=== PATIENT | male | born 1965 | race Two or more races ===

== ENCOUNTER → 2016-08-11 | Outpatient (CLI) | payer OTHER ==
[2016-03-09 15:00] VITALS: BP 126/65
[~2016-08-11] MED LIST: CHOL500016 PO; Chlordiazepoxide Hcl PO; ESOM40CA PO; GABA-586 PO; INSU100I17 SQ; INSU100V13 SQ; LACT10SO PO; Lisinopril PO; MAGN400T3 PO; METH-38 PO; MOME13HF2 IH; RIFA550T PO; SLOW RELEASE I142 MG PO; SPIR50TA2 PO; SUCR1TAB PO; TORS20TA2 PO; TRAM50TA PO; TRAZ100T12 PO
--- NOTE | 2016-08-11 15:36 | RAD ---
Indication microscopic hematuria. Grayscale imaging targeted to the kidneys was performed. Note is made of a complete abdominal ultrasound examination 11/15/2014. The right kidney measures 11.7 x 6.3 x 5.9 cm. No hydronephrosis or mass is seen. The left kidney measures 12.3 x 5.8 x 6 cm. No hydronephrosis or mass is seen. Incidental note was made during the examination of splenomegaly. The urinary bladder was largely collapsed but grossly normal. IMPRESSION: Normal morphologic appearance of the kidneys. Splenomegaly
== END | disposition home or self-care (01) ==
LOC: US 14:56
PROVIDERS: ATTEND Family Medicine
DX: R16.1 Splenomegaly, not elsewhere classified (principal); R31.29 Other microscopic hematuria
CPT/HCPCS: 76770

== ENCOUNTER 2017-04-29 09:05 | Emergency (ER) | payer MEDICARE, SELFPAY, OTHER ==
[2017-04-29] MEDS: SMZ/TMP 800/160MG TABLET. PO ×2 (10:03)
[2017-04-29] MEDS: DIPHTH,PERTUSS(ACELL),TET TOX 0.5 ML DISP.SYRIN. VAX IM ×2 (10:04)
== END 2017-04-29 11:33 | disposition home or self-care (01) ==
LOC: ER 09:05
DX: L03.116 Cellulitis of left lower limb (principal); K21.9 Gastro-esophageal reflux disease without esophagitis; E11.9 Type 2 diabetes mellitus without complications; Z86.73 Personal history of transient ischemic attack (TIA), and cerebral infarction without residual deficits; Z79.4 Long term (current) use of insulin
CPT/HCPCS: 90471; 90715; 93971; 99284-25

== ENCOUNTER 2017-05-04 12:09 | Inpatient (IN) | payer MEDICARE ==
[2017-05-04 13:17] LABS: ADD MAN DIFF? NO
[2017-05-04] MEDS: IV NORMAL SALINE 1000ML BAG 1,000 ML IV (13:19)
[2017-05-04] MEDS: MORPHINE SULFATE 2 MG/ML DISP.SYRIN. IV/SQ ×3 (13:20→15:55)
[2017-05-04 13:25] LABS: BASO % 0 % (0-3); EOS # 0.1 x10^3/uL (0.0-0.7); EOS % 1 % (0-3); HEMATOCRIT 23.2 % (39.0-53.0); LYMPH # 0.4 x10^3/uL (1.0-4.8); LYMPH % 7 % (24-48); MEAN CORPUSCULAR HEMOGLOBIN 29 pg (25-35); MEAN CORPUSCULAR HGB CONC 34 g/dL (31-37); MEAN CORPUSCULAR VOLUME 84 fL (79-100); MONO # 0.8 x10^3/uL (0.0-1.1); MONO % 13 % (0-9); NEUT % 79 % (31-73); PLATELET COUNT 36 x10^3/uL (140-400); RED BLOOD COUNT 2.76 x10^6/uL (4.30-5.70); RED CELL DISTRIBUTION WIDTH 19.2 % (11.5-14.5); WHITE BLOOD COUNT 6.3 x10^3/uL (4.0-11.0)
[2017-05-04 13:42] LABS: ANION GAP 8 (6-14); BLOOD UREA NITROGEN 12 mg/dL (8-26); CALCIUM 7.5 mg/dL (8.5-10.1); CARBON DIOXIDE 21 mmol/L (21-32); CHLORIDE 100 mmol/L (98-107); CREATININE 1.2 mg/dL (0.7-1.3); GFR 63.8; GLUCOSE 218 mg/dL (70-99); POTASSIUM 4.8 mmol/L (3.5-5.1); SODIUM 129 mmol/L (136-145)
[2017-05-04 13:49] LABS: ALBUMIN 1.8 g/dL (3.4-5.0); ALK PHOS 95 U/L (46-116); ALT (SGPT) 20 U/L (16-63); AST (SGOT) 23 U/L (15-37); C-REACTIVE PROTEIN 89.1 mg/L (0-3.3); DIRECT BILIRUBIN 1.2 mg/dL (0.0-0.2); TOTAL BILIRUBIN 1.7 mg/dL (0.2-1.0); TOTAL PROTEIN 6.4 g/dL (6.4-8.2)
[2017-05-04 13:52] LABS: LACTIC ACID 1.7 mmol/L (0.4-2.0)
[2017-05-04] MEDS: VANCOMYCIN 2 GM in IV DEXTROSE 5 %-0.2 % NACL 500 ML IV (13:54)
[2017-05-04] MEDS ORDERED: PIP/TAZO PER PHARMACY MC ×2 (14:30→17:30)
[2017-05-04] MEDS ORDERED: ONDANSETRON PF 4 MG/2 ML VIAL. IV (14:30)
[2017-05-04 14:37] LABS: SEDIMENTATION RATE 56 (0-15)
[2017-05-04] MEDS: PIPERACILLIN/TAZOBACTAM 3.375 GM in IV NORMAL SALINE 50ML 50 ML IV ×2 (14:52→23:58)
[2017-05-04 17:07] LABS: POC GLUCOSE 176 mg/dL (70-99)
[2017-05-04] MEDS: VANCOMYCIN PER PHARMACY MC (17:42)
[2017-05-04] MEDS: HYDROcodone/APAP 5/325MG 1 TAB TABLET PO ×2 (17:57→23:58)
[2017-05-04] MEDS: MORPHINE SULFATE 4 MG/ML DISP.SYRIN. IV ×2 (19:39→22:29)
[2017-05-04] MEDS: SPIRONOLACTONE 25 MG TABLET PO (20:52)
[2017-05-04] MEDS: CLOTRIMAZOLE 1% TOPICAL CREAM 15GM TUBE. TP (20:52)
[2017-05-04] MEDS: INSULIN DETEMIR 300 UNITS/3 ML INSULN.PEN. SQ (21:00)
[2017-05-04 21:07] LABS: POC GLUCOSE 169 mg/dL (70-99)
[2017-05-05] MEDS: VANCOMYCIN 1.25 GM in IV DEXTROSE 5 %-0.2 % NACL 250 ML IV ×2 (02:16→13:24)
[2017-05-05] MEDS: MORPHINE SULFATE 4 MG/ML DISP.SYRIN. IV ×7 (03:10→21:52)
[2017-05-05 05:07] LABS: ADD MAN DIFF? NO
[2017-05-05] MEDS: PIPERACILLIN/TAZOBACTAM 3.375 GM in IV NORMAL SALINE 50ML 50 ML IV ×4 (05:08→23:02)
[2017-05-05 05:10] LABS: BASO % 0 % (0-3); EOS # 0.1 x10^3/uL (0.0-0.7); EOS % 2 % (0-3); HEMATOCRIT 23.6 % (39.0-53.0); LYMPH # 0.6 x10^3/uL (1.0-4.8); LYMPH % 9 % (24-48); MEAN CORPUSCULAR HEMOGLOBIN 29 pg (25-35); MEAN CORPUSCULAR HGB CONC 34 g/dL (31-37); MEAN CORPUSCULAR VOLUME 84 fL (79-100); MONO # 0.9 x10^3/uL (0.0-1.1); MONO % 14 % (0-9); NEUT % 75 % (31-73); PLATELET COUNT 36 x10^3/uL (140-400); RED CELL DISTRIBUTION WIDTH 19.2 % (11.5-14.5); WHITE BLOOD COUNT 6.7 x10^3/uL (4.0-11.0)
[2017-05-05 05:49] LABS: ANION GAP 5 (6-14); BLOOD UREA NITROGEN 8 mg/dL (8-26); CALCIUM 7.3 mg/dL (8.5-10.1); CARBON DIOXIDE 24 mmol/L (21-32); CHLORIDE 102 mmol/L (98-107); CREATININE 0.9 mg/dL (0.7-1.3); GLUCOSE 183 mg/dL (70-99); POTASSIUM 4.5 mmol/L (3.5-5.1); SODIUM 131 mmol/L (136-145)
[2017-05-05 07:33] LABS: POC GLUCOSE 157 mg/dL (70-99)
[2017-05-05] MEDS: PANTOPRAZOLE 40 MG TABLET.DR. PO (07:44)
[2017-05-05] MEDS: HYDROcodone/APAP 5/325MG 1 TAB TABLET PO ×3 (07:45→19:45)
[2017-05-05] MEDS: FLUCONAZOLE 100 MG TABLET. PO (09:05)
[2017-05-05] MEDS: CLOTRIMAZOLE 1% TOPICAL CREAM 15GM TUBE. TP ×2 (09:06→21:52)
[2017-05-05] MEDS: FERROUS SULFATE 325 MG TABLET. PO (09:06)
[2017-05-05] MEDS: SPIRONOLACTONE 25 MG TABLET PO ×3 (09:06→21:52)
[2017-05-05 11:01] LABS: POC GLUCOSE 161 mg/dL (70-99)
[2017-05-05] MEDS: VANCOMYCIN PER PHARMACY MC (11:44)
[2017-05-05] MEDS: LACTOBACILLUS RHAMNOSUS GG 1 CAPSULE. PO ×2 (13:22→21:52)
[2017-05-05] MEDS ORDERED: DEXTROSE 50% 25 GM / 50ML DISP.SYRIN. IV (15:45)
[2017-05-05] MEDS ORDERED: MORPHINE SULFATE 2 MG/ML DISP.SYRIN. IV (15:45)
[2017-05-05 17:03] LABS: POC GLUCOSE 232 mg/dL (70-99)
[2017-05-05] MEDS: INSULIN ASPART 300 UNITS/3 ML INSULN.PEN SQ (17:28)
[2017-05-05] MEDS ORDERED: INSULIN ASPART 300 UNITS/3 ML INSULN.PEN SQ (17:30)
[2017-05-05 20:52] LABS: POC GLUCOSE 168 mg/dL (70-99)
[2017-05-05] MEDS: INSULIN DETEMIR 300 UNITS/3 ML INSULN.PEN. SQ (21:55)
[2017-05-06] MEDS: MORPHINE SULFATE 4 MG/ML DISP.SYRIN. IV ×9 (01:02→23:56)
[2017-05-06 01:47] LABS: VANC TR 9.9 mcg/mL (10.0-20.0)
[2017-05-06] MEDS: HYDROcodone/APAP 5/325MG 1 TAB TABLET PO ×4 (02:13→20:41)
[2017-05-06] MEDS: VANCOMYCIN 1.25 GM in IV DEXTROSE 5 %-0.2 % NACL 250 ML IV (02:54)
[2017-05-06 04:45] LABS: ADD MAN DIFF? NO
[2017-05-06 04:54] LABS: BASO % 1 % (0-3); EOS # 0.2 x10^3/uL (0.0-0.7); EOS % 2 % (0-3); HEMATOCRIT 23.4 % (39.0-53.0); LYMPH # 0.8 x10^3/uL (1.0-4.8); LYMPH % 11 % (24-48); MEAN CORPUSCULAR HEMOGLOBIN 28 pg (25-35); MEAN CORPUSCULAR HGB CONC 34 g/dL (31-37); MEAN CORPUSCULAR VOLUME 83 fL (79-100); MONO # 1.3 x10^3/uL (0.0-1.1); MONO % 18 % (0-9); NEUT # 4.9 x10^3uL (1.8-7.7); NEUT % 68 % (31-73); PLATELET COUNT 36 x10^3/uL (140-400); RED BLOOD COUNT 2.81 x10^6/uL (4.30-5.70); RED CELL DISTRIBUTION WIDTH 18.4 % (11.5-14.5); WHITE BLOOD COUNT 7.2 x10^3/uL (4.0-11.0)
[2017-05-06] MEDS: VANCOMYCIN PER PHARMACY MC (04:57)
[2017-05-06] MEDS: PIPERACILLIN/TAZOBACTAM 3.375 GM in IV NORMAL SALINE 50ML 50 ML IV ×4 (04:59→23:54)
[2017-05-06 05:27] LABS: BLOOD UREA NITROGEN 6 mg/dL (8-26); CALCIUM 7.8 mg/dL (8.5-10.1); CARBON DIOXIDE 25 mmol/L (21-32); CHLORIDE 98 mmol/L (98-107); GFR 78.8; GLUCOSE 171 mg/dL (70-99); POTASSIUM 4.4 mmol/L (3.5-5.1); SODIUM 129 mmol/L (136-145)
[2017-05-06 05:28] LABS: ANION GAP 6 (6-14)
[2017-05-06] MEDS: PANTOPRAZOLE 40 MG TABLET.DR. PO (07:12)
[2017-05-06 07:53] LABS: POC GLUCOSE 143 mg/dL (70-99)
[2017-05-06] MEDS: INSULIN ASPART 300 UNITS/3 ML INSULN.PEN SQ ×3 (08:00→17:34)
[2017-05-06] MEDS: SPIRONOLACTONE 25 MG TABLET PO ×3 (08:49→20:41)
[2017-05-06] MEDS: LACTOBACILLUS RHAMNOSUS GG 1 CAPSULE. PO ×2 (08:49→20:41)
[2017-05-06] MEDS: CLOTRIMAZOLE 1% TOPICAL CREAM 15GM TUBE. TP ×2 (08:49→20:43)
[2017-05-06] MEDS: FLUCONAZOLE 100 MG TABLET. PO (08:49)
[2017-05-06] MEDS: FERROUS SULFATE 325 MG TABLET. PO (08:49)
[2017-05-06] MEDS ORDERED: CONTRAST GIVEN MC (10:00)
[2017-05-06] MEDS: IOHEXOL 300 MG/ML 100ML VIAL. IV (10:19)
[2017-05-06 11:31] LABS: POC GLUCOSE 171 mg/dL (70-99)
[2017-05-06] MEDS: VANCOMYCIN 1.5 GM in IV DEXTROSE 5 %-0.2 % NACL 500 ML IV (15:14)
[2017-05-06 16:36] LABS: POC GLUCOSE 261 mg/dL (70-99)
[2017-05-06 20:47] LABS: POC GLUCOSE 183 mg/dL (70-99)
[2017-05-06] MEDS: INSULIN DETEMIR 300 UNITS/3 ML INSULN.PEN. SQ (20:47)
[2017-05-07] MEDS: MORPHINE SULFATE 4 MG/ML DISP.SYRIN. IV ×8 (02:51→23:37)
[2017-05-07] MEDS: HYDROcodone/APAP 5/325MG 1 TAB TABLET PO ×4 (02:51→21:01)
[2017-05-07] MEDS: VANCOMYCIN 1.5 GM in IV DEXTROSE 5 %-0.2 % NACL 500 ML IV ×2 (03:01→14:39)
[2017-05-07] MEDS: PIPERACILLIN/TAZOBACTAM 3.375 GM in IV NORMAL SALINE 50ML 50 ML IV ×4 (06:06→23:37)
[2017-05-07 07:46] LABS: POC GLUCOSE 194 mg/dL (70-99)
[2017-05-07] MEDS: CLOTRIMAZOLE 1% TOPICAL CREAM 15GM TUBE. TP ×2 (09:00→21:00)
[2017-05-07] MEDS: PANTOPRAZOLE 40 MG TABLET.DR. PO (09:16)
[2017-05-07] MEDS: FERROUS SULFATE 325 MG TABLET. PO (09:16)
[2017-05-07] MEDS: FLUCONAZOLE 100 MG TABLET. PO (09:16)
[2017-05-07] MEDS: SPIRONOLACTONE 25 MG TABLET PO ×3 (09:16→21:01)
[2017-05-07] MEDS: LACTOBACILLUS RHAMNOSUS GG 1 CAPSULE. PO ×2 (09:16→21:01)
[2017-05-07] MEDS: INSULIN ASPART 300 UNITS/3 ML INSULN.PEN SQ ×3 (09:22→17:37)
[2017-05-07 11:23] LABS: POC GLUCOSE 243 mg/dL (70-99)
[2017-05-07] MEDS: VANCOMYCIN PER PHARMACY MC (13:55)
[2017-05-07 16:26] LABS: POC GLUCOSE 264 mg/dL (70-99)
[2017-05-07 21:02] LABS: POC GLUCOSE 197 mg/dL (70-99)
[2017-05-07] MEDS: INSULIN DETEMIR 300 UNITS/3 ML INSULN.PEN. SQ (21:04)
[2017-05-08] MEDS: MORPHINE SULFATE 4 MG/ML DISP.SYRIN. IV ×5 (02:55→23:22)
[2017-05-08] MEDS: HYDROcodone/APAP 5/325MG 1 TAB TABLET PO ×4 (02:55→21:14)
[2017-05-08] MEDS: PIPERACILLIN/TAZOBACTAM 3.375 GM in IV NORMAL SALINE 50ML 50 ML IV ×4 (05:03→23:13)
[2017-05-08 06:22] LABS: ADD MAN DIFF? NO
[2017-05-08 06:26] LABS: BASO % 1 % (0-3); EOS # 0.2 x10^3/uL (0.0-0.7); EOS % 3 % (0-3); HEMATOCRIT 24.7 % (39.0-53.0); HEMOGLOBIN 8.4 g/dL (13.0-17.5); LYMPH # 0.7 x10^3/uL (1.0-4.8); LYMPH % 12 % (24-48); MEAN CORPUSCULAR HEMOGLOBIN 28 pg (25-35); MEAN CORPUSCULAR HGB CONC 34 g/dL (31-37); MEAN CORPUSCULAR VOLUME 83 fL (79-100); MONO # 0.9 x10^3/uL (0.0-1.1); MONO % 16 % (0-9); NEUT # 3.9 x10^3uL (1.8-7.7); NEUT % 68 % (31-73); PLATELET COUNT 52 x10^3/uL (140-400); RED BLOOD COUNT 2.97 x10^6/uL (4.30-5.70); RED CELL DISTRIBUTION WIDTH 18.6 % (11.5-14.5); WHITE BLOOD COUNT 5.7 x10^3/uL (4.0-11.0)
[2017-05-08 06:54] LABS: ANION GAP 3 (6-14); BLOOD UREA NITROGEN 6 mg/dL (8-26); CALCIUM 8.3 mg/dL (8.5-10.1); CARBON DIOXIDE 29 mmol/L (21-32); CHLORIDE 98 mmol/L (98-107); GFR 78.8; GLUCOSE 155 mg/dL (70-99); POTASSIUM 4.5 mmol/L (3.5-5.1); SODIUM 130 mmol/L (136-145)
[2017-05-08 07:40] LABS: POC GLUCOSE 188 mg/dL (70-99)
[2017-05-08] MEDS: LACTOBACILLUS RHAMNOSUS GG 1 CAPSULE. PO ×2 (08:11→21:14)
[2017-05-08] MEDS: FLUCONAZOLE 100 MG TABLET. PO (08:11)
[2017-05-08] MEDS: SPIRONOLACTONE 25 MG TABLET PO ×3 (08:11→21:14)
[2017-05-08] MEDS: PANTOPRAZOLE 40 MG TABLET.DR. PO (08:11)
[2017-05-08] MEDS: FERROUS SULFATE 325 MG TABLET. PO (08:11)
[2017-05-08] MEDS: CLOTRIMAZOLE 1% TOPICAL CREAM 15GM TUBE. TP ×2 (08:16→21:00)
[2017-05-08] MEDS: INSULIN ASPART 300 UNITS/3 ML INSULN.PEN SQ ×3 (08:16→16:44)
[2017-05-08 11:33] LABS: POC GLUCOSE 258 mg/dL (70-99)
[2017-05-08] MEDS: POLYETHYLENE GLYCOL 3350 17 GM PACKET. PO (11:52)
[2017-05-08] MEDS: MAGNESIUM CITRATE 296 ML SOLUTION. PO (11:53)
[2017-05-08] MEDS: LINEZOLID 600 MG TABLET PO ×2 (16:39→23:13)
[2017-05-08 16:40] LABS: POC GLUCOSE 212 mg/dL (70-99)
[2017-05-08 20:47] LABS: POC GLUCOSE 237 mg/dL (70-99)
[2017-05-08] MEDS: INSULIN DETEMIR 300 UNITS/3 ML INSULN.PEN. SQ (21:17)
[2017-05-09] MEDS: MORPHINE SULFATE 4 MG/ML DISP.SYRIN. IV ×10 (03:39→22:50)
[2017-05-09] MEDS: HYDROcodone/APAP 5/325MG 1 TAB TABLET PO ×4 (03:44→21:55)
[2017-05-09] MEDS: PIPERACILLIN/TAZOBACTAM 3.375 GM in IV NORMAL SALINE 50ML 50 ML IV ×4 (05:12→22:51)
[2017-05-09] MEDS: PANTOPRAZOLE 40 MG TABLET.DR. PO (07:44)
[2017-05-09] MEDS: INSULIN ASPART 300 UNITS/3 ML INSULN.PEN SQ ×4 (07:56→17:11)
[2017-05-09 08:03] LABS: POC GLUCOSE 220 mg/dL (70-99)
[2017-05-09] MEDS: POLYETHYLENE GLYCOL 3350 17 GM PACKET. PO (09:01)
[2017-05-09] MEDS: FERROUS SULFATE 325 MG TABLET. PO (09:02)
[2017-05-09] MEDS: LACTOBACILLUS RHAMNOSUS GG 1 CAPSULE. PO ×2 (09:02→20:36)
[2017-05-09] MEDS: SPIRONOLACTONE 25 MG TABLET PO ×3 (09:02→20:36)
[2017-05-09] MEDS: FLUCONAZOLE 100 MG TABLET. PO (09:02)
[2017-05-09] MEDS: LINEZOLID 600 MG TABLET PO ×2 (09:03→20:36)
[2017-05-09] MEDS: CLOTRIMAZOLE 1% TOPICAL CREAM 15GM TUBE. TP ×2 (09:03→20:39)
[2017-05-09 10:36] LABS: POC GLUCOSE 268 mg/dL (70-99)
[2017-05-09 17:15] LABS: POC GLUCOSE 254 mg/dL (70-99)
[2017-05-09 19:01] LABS: INR 1.7 (0.8-1.1); PARTIAL THROMBOPLASTIN TIME 49 SEC (24-38); PROTHROMBIN TIME PATIENT 19.1 SEC (11.7-14.0)
[2017-05-09] MEDS: traZODone 100 MG TABLET. PO (20:36)
[2017-05-09] MEDS: INSULIN DETEMIR 300 UNITS/3 ML INSULN.PEN. SQ (20:38)
[2017-05-09 20:45] LABS: POC GLUCOSE 246 mg/dL (70-99)
[2017-05-10] MEDS: MORPHINE SULFATE 4 MG/ML DISP.SYRIN. IV ×5 (04:03→20:29)
[2017-05-10] MEDS: PIPERACILLIN/TAZOBACTAM 3.375 GM in IV NORMAL SALINE 50ML 50 ML IV ×4 (05:13→23:25)
[2017-05-10] MEDS: INSULIN ASPART 300 UNITS/3 ML INSULN.PEN SQ ×6 (07:30→17:26)
[2017-05-10 07:57] LABS: POC GLUCOSE 214 mg/dL (70-99)
[2017-05-10] MEDS: FERROUS SULFATE 325 MG TABLET. PO (08:00)
[2017-05-10] MEDS ORDERED: MORPHINE SULFATE 4 MG/ML DISP.SYRIN. IV ×2 (08:45→15:30)
[2017-05-10] MEDS ORDERED: LIDOCAINE 1% PF 2 ML VIAL. ID (08:45)
[2017-05-10] MEDS: SPIRONOLACTONE 25 MG TABLET PO ×3 (08:55→20:29)
[2017-05-10] MEDS: PANTOPRAZOLE 40 MG TABLET.DR. PO (08:55)
[2017-05-10] MEDS: LINEZOLID 600 MG TABLET PO ×2 (08:55→20:30)
[2017-05-10] MEDS: FLUCONAZOLE 100 MG TABLET. PO (08:56)
[2017-05-10] MEDS: HYDROcodone/APAP 5/325MG 1 TAB TABLET PO (08:56)
[2017-05-10] MEDS: LACTOBACILLUS RHAMNOSUS GG 1 CAPSULE. PO ×2 (08:58→20:29)
[2017-05-10] MEDS: POLYETHYLENE GLYCOL 3350 17 GM PACKET. PO (08:59)
[2017-05-10] MEDS: CLOTRIMAZOLE 1% TOPICAL CREAM 15GM TUBE. TP ×2 (09:00→20:51)
[2017-05-10 10:59] LABS: POC GLUCOSE 158 mg/dL (70-99)
[2017-05-10] MEDS ORDERED: LIDOCAINE 2% PF Vial for OR 5 ML VIAL. (12:51)
[2017-05-10] MEDS ORDERED: DEXAMETHASONE SOD PHOS 20 MG/5 ML VIAL. (12:51)
[2017-05-10] MEDS ORDERED: PROPOFOL 20 ML IV (12:51)
[2017-05-10] MEDS ORDERED: ONDANSETRON PF 4 MG/2 ML VIAL. (12:51)
[2017-05-10] MEDS ORDERED: LIDOCAINE 1% PF 5 ML VIAL. (12:52)
[2017-05-10] MEDS ORDERED: fentaNYL PF VIAL 100 MCG/2 ML VIAL ×2 (12:52→15:30)
[2017-05-10] MEDS: IV RINGERS,LACTATED 1000ML 1,000 ML IV (13:23)
[2017-05-10] MEDS ORDERED: DESFLURANE 16 TO 30 MINUTES. IH (14:51)
[2017-05-10 15:12] LABS: POC GLUCOSE 116 mg/dL (70-99)
[2017-05-10] MEDS: PROCHLORPERAZINE 10 MG/2 ML VIAL. IV ×2 (15:36→15:47)
[2017-05-10] MEDS: fentaNYL PF VIAL 100 MCG/2 ML VIAL IV ×2 (15:46→16:04)
[2017-05-10 16:38] LABS: POC GLUCOSE 196 mg/dL (70-99)
[2017-05-10] MEDS: traZODone 100 MG TABLET. PO (20:29)
[2017-05-10 20:37] LABS: POC GLUCOSE 394 mg/dL (70-99)
[2017-05-10] MEDS: INSULIN DETEMIR 300 UNITS/3 ML INSULN.PEN. SQ (20:37)
[2017-05-11] MEDS: HYDROcodone/APAP 5/325MG 1 TAB TABLET PO ×2 (00:03→09:37)
[2017-05-11] MEDS: PIPERACILLIN/TAZOBACTAM 3.375 GM in IV NORMAL SALINE 50ML 50 ML IV ×4 (05:54→21:51)
[2017-05-11 06:04] LABS: ALBUMIN 1.8 g/dL (3.4-5.0); ALBUMIN/GLOBULIN RATIO 0.3 (1.0-1.7); ALK PHOS 84 U/L (46-116); ALT (SGPT) 27 U/L (16-63); ANION GAP 6 (6-14); AST (SGOT) 27 U/L (15-37); BLOOD UREA NITROGEN 17 mg/dL (8-26); BUN/CREATININE RATIO 11 (6-20); CALCIUM 7.7 mg/dL (8.5-10.1); CARBON DIOXIDE 24 mmol/L (21-32); CHLORIDE 94 mmol/L (98-107); CREATININE 1.5 mg/dL (0.7-1.3); GFR 49.3; GLUCOSE 421 mg/dL (70-99); POTASSIUM 5.4 mmol/L (3.5-5.1); SODIUM 124 mmol/L (136-145); TOTAL BILIRUBIN 1.8 mg/dL (0.2-1.0); TOTAL PROTEIN 7.2 g/dL (6.4-8.2)
[2017-05-11] MEDS: MORPHINE SULFATE 4 MG/ML DISP.SYRIN. IV ×4 (07:12→18:42)
[2017-05-11] MEDS: oxyCODONE/APAP 10/325 1 TAB TABLET PO ×4 (08:05→23:30)
[2017-05-11] MEDS: POLYETHYLENE GLYCOL 3350 17 GM PACKET. PO (08:05)
[2017-05-11] MEDS: SPIRONOLACTONE 25 MG TABLET PO ×3 (08:06→19:49)
[2017-05-11] MEDS: FLUCONAZOLE 100 MG TABLET. PO (08:06)
[2017-05-11] MEDS: LACTOBACILLUS RHAMNOSUS GG 1 CAPSULE. PO ×2 (08:06→19:49)
[2017-05-11] MEDS: PANTOPRAZOLE 40 MG TABLET.DR. PO (08:06)
[2017-05-11] MEDS: FERROUS SULFATE 325 MG TABLET. PO (08:06)
[2017-05-11] MEDS: LINEZOLID 600 MG TABLET PO ×2 (08:06→19:49)
[2017-05-11 08:09] LABS: POC GLUCOSE 382 mg/dL (70-99)
[2017-05-11] MEDS: CLOTRIMAZOLE 1% TOPICAL CREAM 15GM TUBE. TP ×2 (08:09→19:50)
[2017-05-11] MEDS: INSULIN ASPART 300 UNITS/3 ML INSULN.PEN SQ ×8 (08:13→17:26)
[2017-05-11 12:25] LABS: POC GLUCOSE 430 mg/dL (70-99)
[2017-05-11 15:43] LABS: POC GLUCOSE 318 mg/dL (70-99)
[2017-05-11 17:00] LABS: POC GLUCOSE 317 mg/dL (70-99)
[2017-05-11] MEDS: traZODone 100 MG TABLET. PO (19:49)
[2017-05-11 20:58] LABS: POC GLUCOSE 301 mg/dL (70-99)
[2017-05-11] MEDS: INSULIN DETEMIR 300 UNITS/3 ML INSULN.PEN. SQ (21:49)
[2017-05-12] MEDS: PIPERACILLIN/TAZOBACTAM 3.375 GM in IV NORMAL SALINE 50ML 50 ML IV ×4 (04:15→22:26)
[2017-05-12] MEDS: oxyCODONE/APAP 10/325 1 TAB TABLET PO ×4 (04:15→20:41)
[2017-05-12 08:10] LABS: POC GLUCOSE 341 mg/dL (70-99)
[2017-05-12] MEDS: POLYETHYLENE GLYCOL 3350 17 GM PACKET. PO (09:36)
[2017-05-12] MEDS: PANTOPRAZOLE 40 MG TABLET.DR. PO (09:38)
[2017-05-12] MEDS: INSULIN ASPART 300 UNITS/3 ML INSULN.PEN SQ ×7 (09:40→17:51)
[2017-05-12] MEDS: LACTOBACILLUS RHAMNOSUS GG 1 CAPSULE. PO ×2 (09:44→20:41)
[2017-05-12] MEDS: SPIRONOLACTONE 25 MG TABLET PO ×3 (09:44→20:41)
[2017-05-12] MEDS: FLUCONAZOLE 100 MG TABLET. PO (09:45)
[2017-05-12] MEDS: LINEZOLID 600 MG TABLET PO ×2 (09:46→20:41)
[2017-05-12] MEDS: FERROUS SULFATE 325 MG TABLET. PO (09:47)
[2017-05-12] MEDS: CLOTRIMAZOLE 1% TOPICAL CREAM 15GM TUBE. TP ×2 (09:49→21:00)
[2017-05-12 11:45] LABS: POC GLUCOSE 455 mg/dL (70-99)
[2017-05-12 16:28] LABS: POC GLUCOSE 370 mg/dL (70-99)
[2017-05-12] MEDS: traZODone 100 MG TABLET. PO (20:41)
[2017-05-12 20:59] LABS: POC GLUCOSE 368 mg/dL (70-99)
[2017-05-12] MEDS: INSULIN DETEMIR 300 UNITS/3 ML INSULN.PEN. SQ (22:26)
[2017-05-13 01:57] LABS: POC GLUCOSE 376 mg/dL (70-99)
[2017-05-13] MEDS: PIPERACILLIN/TAZOBACTAM 3.375 GM in IV NORMAL SALINE 50ML 50 ML IV (04:57)
[2017-05-13] MEDS: oxyCODONE/APAP 10/325 1 TAB TABLET PO ×3 (06:35→15:26)
[2017-05-13] MEDS: PANTOPRAZOLE 40 MG TABLET.DR. PO (07:37)
[2017-05-13 07:53] LABS: POC GLUCOSE 290 mg/dL (70-99)
[2017-05-13] MEDS: FLUCONAZOLE 100 MG TABLET. PO (08:54)
[2017-05-13] MEDS: SPIRONOLACTONE 25 MG TABLET PO ×2 (08:54→14:03)
[2017-05-13] MEDS: LINEZOLID 600 MG TABLET PO (08:54)
[2017-05-13] MEDS: FERROUS SULFATE 325 MG TABLET. PO (08:54)
[2017-05-13] MEDS: LACTOBACILLUS RHAMNOSUS GG 1 CAPSULE. PO (08:58)
[2017-05-13] MEDS: POLYETHYLENE GLYCOL 3350 17 GM PACKET. PO (09:00)
[2017-05-13] MEDS: INSULIN ASPART 300 UNITS/3 ML INSULN.PEN SQ ×6 (09:00→17:17)
[2017-05-13] MEDS: CLOTRIMAZOLE 1% TOPICAL CREAM 15GM TUBE. TP (09:00)
[2017-05-13] MEDS: AMOXICILLIN/K CLAV 875/125MG TABLET. PO (11:36)
[2017-05-13 11:40] LABS: POC GLUCOSE 352 mg/dL (70-99)
[2017-05-13 16:48] LABS: POC GLUCOSE 357 mg/dL (70-99)
== END 2017-05-13 18:00 | DRG 579 ==
LOC: ER 12:09 → 5 NORTH 14:44
PROC: 0J9R0ZZ Drainage of Left Foot Subcutaneous Tissue and Fascia, Open Approach (ICD-10-PCS; principal; 2017-05-10 14:30)
DX: L03.116 Cellulitis of left lower limb (principal); E43 Unspecified severe protein-calorie malnutrition; D69.59 Other secondary thrombocytopenia; E11.22 Type 2 diabetes mellitus with diabetic chronic kidney disease; I13.0 Hypertensive heart and chronic kidney disease with heart failure and stage 1 through stage 4 chronic kidney disease, or unspecified chronic kidney disease; E11.65 Type 2 diabetes mellitus with hyperglycemia; I50.9 Heart failure, unspecified; E87.1 Hypo-osmolality and hyponatremia; L02.612 Cutaneous abscess of left foot; Z68.26 Body mass index [BMI] 26.0-26.9, adult; D64.9 Anemia, unspecified; E78.5 Hyperlipidemia, unspecified; G47.00 Insomnia, unspecified; K21.9 Gastro-esophageal reflux disease without esophagitis; K59.00 Constipation, unspecified; N18.2 Chronic kidney disease, stage 2 (mild); Z82.3 Family history of stroke; Z83.3 Family history of diabetes mellitus; Z86.73 Personal history of transient ischemic attack (TIA), and cerebral infarction without residual deficits; Z87.891 Personal history of nicotine dependence; Z95.1 Presence of aortocoronary bypass graft; Z96.659 Presence of unspecified artificial knee joint; F10.10 Alcohol abuse, uncomplicated; M19.90 Unspecified osteoarthritis, unspecified site; E78.00 Pure hypercholesterolemia, unspecified; K74.60 Unspecified cirrhosis of liver
CPT/HCPCS: 36415; 73630; 73701; 76882; 80048; 80053; 80076; 80202; 82962; 83605; 85025; 85610; 85651; 85730; 86140; 87040; 87071; 87075; 87186; 87205; 96361; 96365; 96366; 96368; 96375; 96376; 97161-GP; 99285; 99285-25; J0780; J1100; J1815; J2270; J2405; J2543; J2704; J3010; J3370; J7030; J7120; Q9967

== ENCOUNTER → 2017-05-18 | Outpatient (CLI) | payer SELFPAY, MEDICARE | END | disposition home or self-care (01) | LOC: PMGWOUND 08:52 | DX: E11.621 Type 2 diabetes mellitus with foot ulcer (principal); L97.523 Non-pressure chronic ulcer of other part of left foot with necrosis of muscle; K21.9 Gastro-esophageal reflux disease without esophagitis; F10.20 Alcohol dependence, uncomplicated; K70.30 Alcoholic cirrhosis of liver without ascites; I25.10 Atherosclerotic heart disease of native coronary artery without angina pectoris; J44.9 Chronic obstructive pulmonary disease, unspecified; E11.22 Type 2 diabetes mellitus with diabetic chronic kidney disease; I13.0 Hypertensive heart and chronic kidney disease with heart failure and stage 1 through stage 4 chronic kidney disease, or unspecified chronic kidney disease; I50.9 Heart failure, unspecified; N18.2 Chronic kidney disease, stage 2 (mild); E11.40 Type 2 diabetes mellitus with diabetic neuropathy, unspecified; M19.90 Unspecified osteoarthritis, unspecified site; E78.00 Pure hypercholesterolemia, unspecified; Z86.73 Personal history of transient ischemic attack (TIA), and cerebral infarction without residual deficits; Z95.1 Presence of aortocoronary bypass graft; Z96.659 Presence of unspecified artificial knee joint; Z87.891 Personal history of nicotine dependence; Z79.4 Long term (current) use of insulin | CPT/HCPCS: 97597; 97605 ==

== ENCOUNTER → 2017-05-25 | Outpatient (CLI) | payer SELFPAY, MEDICARE | END | disposition home or self-care (01) | LOC: PMGWOUND 08:28 | DX: E11.621 Type 2 diabetes mellitus with foot ulcer (principal); L97.523 Non-pressure chronic ulcer of other part of left foot with necrosis of muscle; I25.10 Atherosclerotic heart disease of native coronary artery without angina pectoris; J44.9 Chronic obstructive pulmonary disease, unspecified; K21.9 Gastro-esophageal reflux disease without esophagitis; I11.0 Hypertensive heart disease with heart failure; I50.9 Heart failure, unspecified; E11.40 Type 2 diabetes mellitus with diabetic neuropathy, unspecified; E11.22 Type 2 diabetes mellitus with diabetic chronic kidney disease; I12.9 Hypertensive chronic kidney disease with stage 1 through stage 4 chronic kidney disease, or unspecified chronic kidney disease; N18.2 Chronic kidney disease, stage 2 (mild); E78.5 Hyperlipidemia, unspecified; E78.00 Pure hypercholesterolemia, unspecified; M19.90 Unspecified osteoarthritis, unspecified site; F10.20 Alcohol dependence, uncomplicated; K70.30 Alcoholic cirrhosis of liver without ascites; Z95.1 Presence of aortocoronary bypass graft; Z79.4 Long term (current) use of insulin; Z87.891 Personal history of nicotine dependence; Z86.73 Personal history of transient ischemic attack (TIA), and cerebral infarction without residual deficits | CPT/HCPCS: 11042; 97605 ==

== ENCOUNTER → 2017-05-27 | Outpatient (CLI) | payer SELFPAY, MEDICARE ==
[2017-05-27 10:35] LABS: ADD MAN DIFF? NO
[2017-05-27 10:44] LABS: BASO % 1 % (0-3); EOS # 0.1 x10^3/uL (0.0-0.7); EOS % 3 % (0-3); HEMATOCRIT 28.5 % (39.0-53.0); HEMOGLOBIN 9.3 g/dL (13.0-17.5); LYMPH # 0.5 x10^3/uL (1.0-4.8); LYMPH % 16 % (24-48); MEAN CORPUSCULAR HEMOGLOBIN 27 pg (25-35); MEAN CORPUSCULAR HGB CONC 33 g/dL (31-37); MEAN CORPUSCULAR VOLUME 83 fL (79-100); MONO # 0.4 x10^3/uL (0.0-1.1); MONO % 15 % (0-9); NEUT # 1.9 x10^3uL (1.8-7.7); NEUT % 65 % (31-73); PLATELET COUNT 41 x10^3/uL (140-400); RED BLOOD COUNT 3.44 x10^6/uL (4.30-5.70); WHITE BLOOD COUNT 2.9 x10^3/uL (4.0-11.0)
[2017-05-27 11:02] LABS: AMMONIA 79 mcmol/L (11-34)
[2017-05-27 11:09] LABS: ALBUMIN 2.4 g/dL (3.4-5.0); ALBUMIN/GLOBULIN RATIO 0.5 (1.0-1.7); ALK PHOS 92 U/L (46-116); ALT (SGPT) 31 U/L (16-63); ANION GAP 10 (6-14); AST (SGOT) 26 U/L (15-37); BLOOD UREA NITROGEN 8 mg/dL (8-26); BUN/CREATININE RATIO 7 (6-20); CALCIUM 8.4 mg/dL (8.5-10.1); CARBON DIOXIDE 26 mmol/L (21-32); CHLORIDE 97 mmol/L (98-107); CREATININE 1.2 mg/dL (0.7-1.3); GFR 63.8; GLUCOSE 269 mg/dL (70-99); POTASSIUM 4.3 mmol/L (3.5-5.1); SODIUM 133 mmol/L (136-145); TOTAL PROTEIN 7.4 g/dL (6.4-8.2)
== END | disposition home or self-care (01) ==
LOC: SPEC 06:57
DX: I13.0 Hypertensive heart and chronic kidney disease with heart failure and stage 1 through stage 4 chronic kidney disease, or unspecified chronic kidney disease (principal); N18.2 Chronic kidney disease, stage 2 (mild); I50.32 Chronic diastolic (congestive) heart failure; E11.22 Type 2 diabetes mellitus with diabetic chronic kidney disease; Z87.891 Personal history of nicotine dependence
CPT/HCPCS: 36415; 80053; 82140; 85025

== ENCOUNTER 2017-05-30 00:17 | Outpatient (CLI) | payer SELFPAY, MEDICARE ==
[2017-05-30 06:27] LABS: ADD MAN DIFF? NO
[2017-05-30 06:42] LABS: BASO % 1 % (0-3); EOS # 0.2 x10^3/uL (0.0-0.7); EOS % 6 % (0-3); HEMATOCRIT 26.7 % (39.0-53.0); HEMOGLOBIN 8.7 g/dL (13.0-17.5); LYMPH # 0.7 x10^3/uL (1.0-4.8); LYMPH % 21 % (24-48); MEAN CORPUSCULAR HEMOGLOBIN 27 pg (25-35); MEAN CORPUSCULAR HGB CONC 33 g/dL (31-37); MEAN CORPUSCULAR VOLUME 82 fL (79-100); MONO # 0.4 x10^3/uL (0.0-1.1); MONO % 12 % (0-9); NEUT % 60 % (31-73); PLATELET COUNT 46 x10^3/uL (140-400); RED BLOOD COUNT 3.25 x10^6/uL (4.30-5.70); RED CELL DISTRIBUTION WIDTH 18.3 % (11.5-14.5); WHITE BLOOD COUNT 3.4 x10^3/uL (4.0-11.0)
[2017-05-30 06:47] LABS: AMMONIA 143 mcmol/L (11-34)
[2017-05-30 06:53] LABS: ALBUMIN 2.2 g/dL (3.4-5.0); ALBUMIN/GLOBULIN RATIO 0.5 (1.0-1.7); ALK PHOS 90 U/L (46-116); ALT (SGPT) 27 U/L (16-63); ANION GAP 9 (6-14); AST (SGOT) 22 U/L (15-37); BLOOD UREA NITROGEN 8 mg/dL (8-26); BUN/CREATININE RATIO 8 (6-20); CALCIUM 8.8 mg/dL (8.5-10.1); CARBON DIOXIDE 26 mmol/L (21-32); CHLORIDE 99 mmol/L (98-107); GFR 78.8; GLUCOSE 155 mg/dL (70-99); POTASSIUM 4.4 mmol/L (3.5-5.1); SODIUM 134 mmol/L (136-145); TOTAL BILIRUBIN 1.8 mg/dL (0.2-1.0); TOTAL PROTEIN 6.6 g/dL (6.4-8.2)
== END 2017-07-07 | disposition home or self-care (01) ==
LOC: SPEC 00:17
DX: I13.0 Hypertensive heart and chronic kidney disease with heart failure and stage 1 through stage 4 chronic kidney disease, or unspecified chronic kidney disease (principal); E11.22 Type 2 diabetes mellitus with diabetic chronic kidney disease; I50.9 Heart failure, unspecified; N18.2 Chronic kidney disease, stage 2 (mild); J44.9 Chronic obstructive pulmonary disease, unspecified; E78.00 Pure hypercholesterolemia, unspecified; E78.5 Hyperlipidemia, unspecified
CPT/HCPCS: 36415; 80053; 82140; 85025

== ENCOUNTER 2017-06-01 10:26 | Inpatient (IN) | payer MEDICARE ==
[2017-06-01 11:05] LABS: ADD MAN DIFF? NO
[2017-06-01 11:18] LABS: ANION GAP 7 (6-14); BLOOD UREA NITROGEN 11 mg/dL (8-26); BUN/CREATININE RATIO 10 (6-20); CALCIUM 9.4 mg/dL (8.5-10.1); CARBON DIOXIDE 26 mmol/L (21-32); CHLORIDE 97 mmol/L (98-107); CREATININE 1.1 mg/dL (0.7-1.3); GFR 70.6; GLUCOSE 160 mg/dL (70-99); POTASSIUM 4.5 mmol/L (3.5-5.1); SODIUM 130 mmol/L (136-145)
[2017-06-01 11:19] LABS: AMMONIA 114 mcmol/L (11-34)
[2017-06-01 11:22] LABS: BASO % 1 % (0-3); EOS % 1 % (0-3); HEMOGLOBIN 10.4 g/dL (13.0-17.5); LYMPH # 0.4 x10^3/uL (1.0-4.8); LYMPH % 8 % (24-48); MEAN CORPUSCULAR HEMOGLOBIN 27 pg (25-35); MEAN CORPUSCULAR HGB CONC 33 g/dL (31-37); MEAN CORPUSCULAR VOLUME 83 fL (79-100); MONO # 0.4 x10^3/uL (0.0-1.1); MONO % 9 % (0-9); NEUT # 3.7 x10^3uL (1.8-7.7); NEUT % 83 % (31-73); PLATELET COUNT 51 x10^3/uL (140-400); RED BLOOD COUNT 3.85 x10^6/uL (4.30-5.70); RED CELL DISTRIBUTION WIDTH 19.2 % (11.5-14.5); WHITE BLOOD COUNT 4.5 x10^3/uL (4.0-11.0)
[2017-06-01 11:25] LABS: ALBUMIN 2.7 g/dL (3.4-5.0); ALBUMIN/GLOBULIN RATIO 0.5 (1.0-1.7); ALK PHOS 97 U/L (46-116); ALT (SGPT) 34 U/L (16-63); AST (SGOT) 28 U/L (15-37); CREATINE KINASE 54 U/L (39-308); DIRECT BILIRUBIN 1.1 mg/dL (0.0-0.2); TOTAL BILIRUBIN 2.8 mg/dL (0.2-1.0)
[2017-06-01 11:26] LABS: TROPONINI < 0.017 ng/mL (0.000-0.055)
[2017-06-01 11:30] LABS: NT-PRO BNP 18 pg/mL (0-124)
[2017-06-01 11:36] LABS: INR 1.7 (0.8-1.1); PARTIAL THROMBOPLASTIN TIME 38 SEC (24-38); PROTHROMBIN TIME PATIENT 19.5 SEC (11.7-14.0)
[2017-06-01] MEDS ORDERED: MORPHINE SULFATE 2 MG/ML DISP.SYRIN. IV (12:00)
[2017-06-01] MEDS: LACTULOSE 20 GM/30 ML SOLUTION. PO (12:01)
[2017-06-01] MEDS: IV NORMAL SALINE 1000ML BAG 1,000 ML IV ×2 (12:02→21:18)
[2017-06-01] MEDS: ONDANSETRON PF 4 MG/2 ML VIAL. IV (12:07)
[2017-06-01] MEDS: MORPHINE SULFATE 4 MG/ML DISP.SYRIN. IV (12:08)
[2017-06-01 12:10] LABS: ETHANOL < 10 mg/dL (0-10)
[2017-06-01 13:22] LABS: BILIRUBIN,URINE NEGATIVE (NEG); CLARITY,URINE CLEAR; COLOR,URINE YELLOW; GLUCOSE,URINE NEGATIVE (NEG); NITRITE,URINE NEGATIVE (NEG); PROTEIN,URINE NEGATIVE (NEG-TRACE)
[2017-06-01 13:47] LABS: BACTERIA,URINE 0 /HPF (0-FEW); RBC,URINE >40 /HPF (0-2); WBC,URINE 0 /HPF (0-4)
[2017-06-01] MEDS ORDERED: LACTULOSE 20 GM/30 ML SOLUTION. PO (14:45)
[2017-06-01] MEDS: rifAXIMin 550 MG TABLET PO ×2 (15:03→21:11)
[2017-06-01] MEDS: SPIRONOLACTONE 25 MG TABLET PO ×2 (15:04→21:11)
[2017-06-01] MEDS: oxyCODONE/APAP 10/325 1 TAB TABLET PO ×2 (15:04→21:18)
[2017-06-01] MEDS: LACTOBACILLUS RHAMNOSUS GG 1 CAPSULE. PO ×2 (15:04→21:11)
[2017-06-01] MEDS: PANTOPRAZOLE 40 MG TABLET.DR. PO (16:29)
[2017-06-01] MEDS ORDERED: NON FORMULARY ITEM SQ (16:30)
[2017-06-01 16:40] LABS: POC GLUCOSE 215 mg/dL (70-99)
[2017-06-01] MEDS: INSULIN ASPART 300 UNITS/3 ML INSULN.PEN SQ (17:00)
[2017-06-01] MEDS ORDERED: NON FORMULARY ITEM (Lactobacillus Acidophilus (Probiotic) 1 EACH) PO (18:00)
[2017-06-01] MEDS: FERROUS SULFATE ORAL 300 MG/5 ML SOLUTION. PO (18:42)
[2017-06-01 20:32] LABS: POC GLUCOSE 156 mg/dL (70-99)
[2017-06-01] MEDS: INSULIN DETEMIR 300 UNITS/3 ML INSULN.PEN. SQ (21:00)
[2017-06-02] MEDS: oxyCODONE/APAP 10/325 1 TAB TABLET PO ×4 (02:03→21:45)
[2017-06-02] MEDS ORDERED: NON FORMULARY ITEM (Esomeprazole Magnesium (Nexium Capsule) 40 MG) PO (07:30)
[2017-06-02] MEDS: IV NORMAL SALINE 1000ML BAG 1,000 ML IV (07:48)
[2017-06-02] MEDS ORDERED: FERROUS SULFATE 142 MG PO (08:00)
[2017-06-02 08:26] LABS: POC GLUCOSE 177 mg/dL (70-99)
[2017-06-02] MEDS: FERROUS SULFATE ORAL 300 MG/5 ML SOLUTION. PO ×2 (08:44→17:56)
[2017-06-02] MEDS: LACTOBACILLUS RHAMNOSUS GG 1 CAPSULE. PO ×2 (08:45→21:41)
[2017-06-02] MEDS: PANTOPRAZOLE 40 MG TABLET.DR. PO (08:46)
[2017-06-02] MEDS: rifAXIMin 550 MG TABLET PO ×2 (08:46→21:41)
[2017-06-02] MEDS: SPIRONOLACTONE 25 MG TABLET PO ×3 (08:46→21:41)
[2017-06-02] MEDS: INSULIN ASPART 300 UNITS/3 ML INSULN.PEN SQ ×4 (08:54→18:02)
[2017-06-02] MEDS ORDERED: NON FORMULARY ITEM (Omeprazole 1 TAB) PO (09:00)
[2017-06-02 09:35] LABS: ADD MAN DIFF? NO
[2017-06-02 09:46] LABS: BASO % 1 % (0-3); EOS # 0.1 x10^3/uL (0.0-0.7); EOS % 6 % (0-3); HEMATOCRIT 27.4 % (39.0-53.0); HEMOGLOBIN 8.9 g/dL (13.0-17.5); LYMPH # 0.4 x10^3/uL (1.0-4.8); LYMPH % 18 % (24-48); MEAN CORPUSCULAR HEMOGLOBIN 27 pg (25-35); MEAN CORPUSCULAR HGB CONC 33 g/dL (31-37); MEAN CORPUSCULAR VOLUME 84 fL (79-100); MONO # 0.4 x10^3/uL (0.0-1.1); MONO % 16 % (0-9); NEUT # 1.3 x10^3uL (1.8-7.7); NEUT % 60 % (31-73); PLATELET COUNT 37 x10^3/uL (140-400); RED BLOOD COUNT 3.29 x10^6/uL (4.30-5.70); RED CELL DISTRIBUTION WIDTH 19.3 % (11.5-14.5); WHITE BLOOD COUNT 2.2 x10^3/uL (4.0-11.0)
[2017-06-02 10:01] LABS: ALBUMIN 2.2 g/dL (3.4-5.0); ALBUMIN/GLOBULIN RATIO 0.5 (1.0-1.7); ALK PHOS 76 U/L (46-116); ALT (SGPT) 28 U/L (16-63); ANION GAP 9 (6-14); AST (SGOT) 25 U/L (15-37); BLOOD UREA NITROGEN 7 mg/dL (8-26); BUN/CREATININE RATIO 7 (6-20); CALCIUM 8.1 mg/dL (8.5-10.1); CARBON DIOXIDE 24 mmol/L (21-32); CHLORIDE 99 mmol/L (98-107); GFR 78.8; GLUCOSE 266 mg/dL (70-99); POTASSIUM 3.8 mmol/L (3.5-5.1); SODIUM 132 mmol/L (136-145); TOTAL BILIRUBIN 2.3 mg/dL (0.2-1.0); TOTAL PROTEIN 6.7 g/dL (6.4-8.2)
[2017-06-02 11:28] LABS: AMMONIA 105 mcmol/L (11-34)
[2017-06-02] MEDS: LACTULOSE 20 GM/30 ML SOLUTION. PO ×2 (13:03→21:00)
[2017-06-02 17:12] LABS: POC GLUCOSE 252 mg/dL (70-99)
[2017-06-02 17:12] LABS: POC GLUCOSE 207 mg/dL (70-99)
[2017-06-02 18:15] LABS: MRSA BY PCR Negative (Negative)
[2017-06-02] MEDS: INSULIN DETEMIR 300 UNITS/3 ML INSULN.PEN. SQ (21:00)
[2017-06-02 21:04] LABS: POC GLUCOSE 90 mg/dL (70-99)
[2017-06-03] MEDS: oxyCODONE/APAP 10/325 1 TAB TABLET PO ×2 (01:46→05:55)
[2017-06-03 05:30] LABS: AMMONIA 71 mcmol/L (11-34)
[2017-06-03 08:20] LABS: HEMATOCRIT 28.6 % (39.0-53.0); HEMOGLOBIN 9.4 g/dL (13.0-17.5); MEAN CORPUSCULAR HEMOGLOBIN 27 pg (25-35); MEAN CORPUSCULAR HGB CONC 33 g/dL (31-37); MEAN CORPUSCULAR VOLUME 83 fL (79-100); PLATELET COUNT 38 x10^3/uL (140-400); RED BLOOD COUNT 3.44 x10^6/uL (4.30-5.70); RED CELL DISTRIBUTION WIDTH 19.5 % (11.5-14.5)
[2017-06-03 08:40] LABS: POC GLUCOSE 174 mg/dL (70-99)
[2017-06-03] MEDS: LACTOBACILLUS RHAMNOSUS GG 1 CAPSULE. PO (08:42)
[2017-06-03] MEDS: LACTULOSE 20 GM/30 ML SOLUTION. PO (08:42)
[2017-06-03] MEDS: rifAXIMin 550 MG TABLET PO (08:42)
[2017-06-03] MEDS: SPIRONOLACTONE 25 MG TABLET PO ×2 (08:42→14:13)
[2017-06-03] MEDS: PANTOPRAZOLE 40 MG TABLET.DR. PO (08:42)
[2017-06-03] MEDS: FERROUS SULFATE ORAL 300 MG/5 ML SOLUTION. PO (08:42)
[2017-06-03] MEDS: INSULIN ASPART 300 UNITS/3 ML INSULN.PEN SQ ×4 (08:47→12:00)
[2017-06-03 11:20] LABS: POC GLUCOSE 79 mg/dL (70-99)
[2017-06-03] MEDS ORDERED: traZODone 100 MG TABLET. PO (21:00)
== END 2017-06-03 16:14 | disposition home or self-care (01) | DRG 442 ==
LOC: ER 10:26 → 6 SOUTH 11:52
DX: K72.90 Hepatic failure, unspecified without coma (principal); D61.818 Other pancytopenia; E11.40 Type 2 diabetes mellitus with diabetic neuropathy, unspecified; E44.0 Moderate protein-calorie malnutrition; L03.116 Cellulitis of left lower limb; E87.1 Hypo-osmolality and hyponatremia; E11.65 Type 2 diabetes mellitus with hyperglycemia; K76.6 Portal hypertension; L02.612 Cutaneous abscess of left foot; I50.9 Heart failure, unspecified; D73.1 Hypersplenism; F10.20 Alcohol dependence, uncomplicated; I11.0 Hypertensive heart disease with heart failure; I25.10 Atherosclerotic heart disease of native coronary artery without angina pectoris; J44.9 Chronic obstructive pulmonary disease, unspecified; K21.9 Gastro-esophageal reflux disease without esophagitis; Z96.659 Presence of unspecified artificial knee joint; K70.30 Alcoholic cirrhosis of liver without ascites; K80.20 Calculus of gallbladder without cholecystitis without obstruction; Z79.4 Long term (current) use of insulin; Z83.3 Family history of diabetes mellitus; Z86.73 Personal history of transient ischemic attack (TIA), and cerebral infarction without residual deficits; Z87.891 Personal history of nicotine dependence; Z95.1 Presence of aortocoronary bypass graft; Z87.81 Personal history of (healed) traumatic fracture; Z68.26 Body mass index [BMI] 26.0-26.9, adult
CPT/HCPCS: 36415; 71045; 80053; 80076; 81001; 82140; 82550; 82962; 83880; 84484; 85025; 85027; 85610; 85730; 87641; 93005; 96374; 96375; 97162-GP; 97165-GO; 99285; 99285-25; G0480; J1815; J2270; J2405; J7030

== ENCOUNTER → 2017-06-01 | Outpatient (CLI) | payer SELFPAY, MEDICARE ==
[2017-06-02 07:04] LABS: POC GLUCOSE 151 mg/dL (70-99)
== END | disposition home or self-care (01) ==
LOC: PMGWOUND 09:25
DX: E11.621 Type 2 diabetes mellitus with foot ulcer (principal); L97.523 Non-pressure chronic ulcer of other part of left foot with necrosis of muscle; F10.20 Alcohol dependence, uncomplicated; K70.30 Alcoholic cirrhosis of liver without ascites; I25.10 Atherosclerotic heart disease of native coronary artery without angina pectoris; J44.9 Chronic obstructive pulmonary disease, unspecified; K21.9 Gastro-esophageal reflux disease without esophagitis; E11.40 Type 2 diabetes mellitus with diabetic neuropathy, unspecified; E11.22 Type 2 diabetes mellitus with diabetic chronic kidney disease; I13.0 Hypertensive heart and chronic kidney disease with heart failure and stage 1 through stage 4 chronic kidney disease, or unspecified chronic kidney disease; N18.2 Chronic kidney disease, stage 2 (mild); E78.00 Pure hypercholesterolemia, unspecified; M19.90 Unspecified osteoarthritis, unspecified site; Z86.73 Personal history of transient ischemic attack (TIA), and cerebral infarction without residual deficits; Z87.891 Personal history of nicotine dependence; Z96.659 Presence of unspecified artificial knee joint; Z95.1 Presence of aortocoronary bypass graft; Z79.4 Long term (current) use of insulin
CPT/HCPCS: 11042; 82962; 97605

== ENCOUNTER 2018-08-04 15:39 | Inpatient (IN) | payer MEDICARE ==
[~2018-08-04] VITALS: Ht 162.6 cm; Wt 62.4 kg
[~2018-08-04 15:39] MED LIST changes: -FERR325T14 PO; -INSU100I13 SQ; -POTA10TA12 PO
[2018-08-04] MEDS ORDERED: TORS20TA2 PO (17:04)
[2018-08-04] MEDS ORDERED: ESOM40CA PO (17:04)
[2018-08-04] MEDS ORDERED: TRAZ-86 PO (17:05)
[2018-08-04] MEDS ORDERED: FERR325T14 PO (17:05)
[2018-08-04] MEDS ORDERED: INSU100I13 SQ (17:13)
[2018-08-04 17:18] VITALS: BP 150/68
[2018-08-04] MEDS: INSULIN LISPRO 300 UNITS/3 ML INSULN.PEN. SQ SCH (18:00)
[2018-08-04 18:15] LABS: CALCIUM 7.2 mg/dL (8.5-10.1); CREATININE 1.3 mg/dL (0.7-1.3); POTASSIUM 4.3 mmol/L (3.5-5.1)
[2018-08-04 18:20] LABS: ALBUMIN 1.6 g/dL (3.4-5.0); ALBUMIN/GLOBULIN RATIO 0.5 (1.0-1.7); TOTAL BILIRUBIN 1.1 mg/dL (0.2-1.0); TOTAL PROTEIN 5.1 g/dL (6.4-8.2)
[2018-08-04 18:26] LABS: PROTHROMBIN TIME PATIENT 19.9 SEC (11.7-14.0)
[2018-08-04 19:00] VITALS: BP 117/86
[2018-08-04] MEDS ORDERED: INSULIN GLARGINE 300 UNITS/3 ML INSULN.PEN. SQ SCH ×2 (21:00)
[2018-08-04] MEDS: rifAXIMin 550 MG TABLET PO SCH (21:20)
[2018-08-04] MEDS: GABAPENTIN 300 MG CAPSULE. PO SCH (21:21)
[2018-08-04] MEDS: SPIRONOLACTONE 25 MG TABLET PO SCH (21:21)
[2018-08-04] MEDS: traZODone 100 MG TABLET. PO SCH (21:21)
[2018-08-04 22:58] VITALS: BP 143/58
[2018-08-04 23:00] VITALS: BP 163/71
[2018-08-04] MEDS: oxyCODONE IR 5 MG TABLET PO PRN (23:01)
[2018-08-05] VITALS (20 sets, daily range): BP systolic 125–190; BP diastolic 42–94
[2018-08-05 06:19] LABS: BASO % 1 % (0-3); EOS % 0 % (0-3); LYMPH # 0.2 x10^3/uL (1.0-4.8); LYMPH % 8 % (24-48); MEAN CORPUSCULAR HEMOGLOBIN 26 pg (25-35); MEAN CORPUSCULAR HGB CONC 32 g/dL (31-37); MEAN CORPUSCULAR VOLUME 81 fL (79-100); MONO # 0.5 x10^3/uL (0.0-1.1); MONO % 15 % (0-9); NEUT # 2.2 x10^3uL (1.8-7.7); NEUT % 76 % (31-73); RED BLOOD COUNT 1.92 x10^6/uL (4.30-5.70); RED CELL DISTRIBUTION WIDTH 18.3 % (11.5-14.5); WHITE BLOOD COUNT 2.9 x10^3/uL (4.0-11.0)
[2018-08-05 06:35] LABS: PLATELET COUNT 9 x10^3/uL (140-400)
[2018-08-05 06:37] LABS: HEMATOCRIT 15.6 % (39.0-53.0)
[2018-08-05] MEDS ORDERED: PANTOPRAZOLE 40 MG TABLET.DR. PO SCH (07:30)
[2018-08-05] MEDS: INSULIN LISPRO 300 UNITS/3 ML INSULN.PEN. SQ SCH ×3 (08:00→17:00)
[2018-08-05] MEDS: GABAPENTIN 300 MG CAPSULE. PO SCH ×3 (09:00→22:20)
--- NOTE | 2018-08-05 09:11 | RAD ---
Examination: Ultrasound abdomen complete HISTORY: History of cirrhosis, TIPS, abdominal distention COMPARISON: 04/04/2018 FINDINGS: The liver length measures 15.5 cm. The common bile duct measures 4 mm in transverse dimension. Cirrhotic appearance of the liver. Echogenicities identified within the gallbladder likely gallstones. The gallbladder wall thickness measures 3.7 mm. Mild ascites identified. The right kidney measures 11.1 cm in length and the left kidney 11.9 cm in length. The pancreas, aorta, IVC is poorly visualized. Small right pleural effusion evident. The TIPS appears patent. The spleen measures 13.8 cm. IMPRESSION: 1. Cirrhosis of the liver with patent TIPS. 2. Cholelithiasis. There is mild thickened appearance of the gallbladder wall could be cholecystitis or due to underlying liver disease, correlate clinically. 3. Mild ascites. Mild splenomegaly. Electronically signed by: Nadir Garcia MD (08/05/2018 9:08 AM) [facility]
[2018-08-05] MEDS: PANTOPRAZOLE IV PUSH 40 MG VIAL. IVP SCH (09:20)
--- NOTE | 2018-08-05 11:22 | PDOC1 ---
History and Physical Date of Admission Date of Admission 08/04/18 Identification/Chief Complaint Chief Complaint Bloated, dark stools, weak Source Source: Patient History of Present Illness History of Present Illness Pt states that he has had increased abdominal bloating for the past 2 weeks, and has had black/red stools for the past week and a half. Came in to see Dr. Farah yesterday and was found to have significantly low Hb level and was admitted. He says that he has had increased weakness. His stools have been more liquidy and smaller in amount. He has some mild diffuse abdominal tenderness but more so on the left. The pain in his feet seems to be getting worse (diabetic neuropathy). He has been more nauseous the past couple of days and has been vomiting. Either has yellow vomit, or is dry heaving. Has not really eaten the past couple of days. Of note, pt's brother recently 3 weeks ago. Pt has known cirrhosis from alcoholism. Alcohol intake has increased since then. States that he is drinking 4-5 beers a day. Last drink was two nights ago. Denies any current withdrawal symptoms. Has gotten "the shakes" in the past but has never had a seizure. Past Medical History Cardiovascular: CAD, CHF, HTN, Hyperlipidemia Pulmonary: Asthma CENTRAL NERVOUS SYSTEM: Periperal neuropathy GI: GERD, GI bleed, Gastritis, Peptic Ulcer disease Heme/Onc: Iron deficiency Anemia Hepatobiliary: Cirrhosis Psych: No pertinent hx Rheumatologic: No pertinent hx Infectious disease: No pertinent hx ENT: No pertinent hx Renal/: No pertinent hx Endocrine: Diabetes Dermatology: No pertinent hx Past Surgical History Past Surgical History: CABG, Cataract Removal, Total knee replacement, Other Family History Family History: Diabetes, Stroke Social History Smoke: <1 pack per day ALCOHOL: other Drugs: None Current Medications Current Medications Current Medications Medications (Trade) Dose Ordered Sig/Kodak Start Time Stop Time Status Last Admin Dose Admin Dextrose (Dextrose 50%-Water Syringe) 12.5 gm PRN Q15MIN PRN 08/04/18 17:15 Ferrous Sulfate (Feosol) 325 mg DAILY 08/05/18 09:00 Folic Acid (Folic Acid) 1 mg DAILY 08/05/18 09:00 Gabapentin (Neurontin) 300 mg TID 08/04/18 21:00 08/04/18 21:21 300 MG Insulin Glargine (Lantus) 30 units QHS 08/04/18 21:00 08/04/18 21:25 30 UNITS Insulin Human Lispro (HumaLOG) 0-5 UNITS TIDWMEALS 08/04/18 18:00 Oxycodone HCl (Roxicodone) 10 mg PRN BID PRN 08/04/18 17:30 08/04/18 23:01 10 MG Pantoprazole Sodium (PROTONIX VIAL for IV PUSH) 40 mg DAILYAC 08/05/18 07:30 08/05/18 09:20 40 MG Pantoprazole Sodium (Protonix) 40 mg DAILYAC 08/05/18 07:30 08/05/18 07:30 DC Rifaximin (Xifaxan) 550 mg Q12HR 08/04/18 21:00 08/04/18 21:20 550 MG Spironolactone (Aldactone) 50 mg BID 08/04/18 21:00 08/04/18 21:21 50 MG Torsemide (Demadex) 20 mg DAILY 08/05/18 09:00 Trazodone HCl (Desyrel) 100 mg HS 08/04/18 21:00 08/04/18 21:21 100 MG Allergies Allergies Allergies Coded Allergies Type Severity Reaction Last Updated Verified No Known Drug Allergies 04/06/18 No ROS Review of System CONSTITUTIONAL: No fever or chills EYES: No recent changes SKIN: No rash or itching, increased bruising CARDIOVASCULAR: No chest pain, syncope, palpitations, +edema in LE for past couple of days RESPIRATORY: No SOB or cough GASTROINTESTINAL: See HPI NEUROLOGICAL: No headaches ENDOCRINE: No cold or heat intolerance GENITOURINARY: No urgency or frequency of urination MUSCULOSKELETAL: No back pain or joint pain LYMPHATICS: No enlarged lymph nodes PSYCHIATRIC: No anxiety or depression Physical Exam Physical Exam GEN.: No apparent distress. Alert and oriented. HEENT: Head is normocephalic, atraumatic NECK: Supple. LUNGS: Clear to auscultation. HEART: RRR, S1, S2 present. Peripheral pulses intact ABDOMEN: Distended, no significant tenderness. Positive bowel sounds. EXTREMITIES: Without any cyanosis. non pitting edema LE bilaterally NEUROLOGIC: Normal speech, normal tone PSYCHIATRIC: Normal affect, normal mood. SKIN: No ulcerations, multiple ecchymosis throughout Vitals Vitals Vital Signs Date Time Temp Pulse Resp B/P (MAP) Pulse Ox O2 Delivery O2 Flow Rate FiO2 08/05/18 08:00 Room Air 08/05/18 07:00 98.2 97 18 169/52 (91) 94 98.2 Labs Labs Laboratory Tests Test 08/04/18 17:40 08/04/18 20:42 08/05/18 05:45 08/05/18 07:17 Prothrombin Time 19.9 SEC (11.7-14.0) Prothromb Time International Ratio 1.7 (0.8-1.1) Sodium Level 136 mmol/L (136-145) Potassium Level 4.3 mmol/L (3.5-5.1) Chloride Level 104 mmol/L (98-107) Carbon Dioxide Level 21 mmol/L (21-32) Anion Gap 11 (6-14) Blood Urea Nitrogen 20 mg/dL (8-26) Creatinine 1.3 mg/dL (0.7-1.3) Estimated GFR (Cockcroft-Gault) 58.0 BUN/Creatinine Ratio 15 (6-20) Glucose Level 135 mg/dL (70-99) Calcium Level 7.2 mg/dL (8.5-10.1) Total Bilirubin 1.1 mg/dL (0.2-1.0) Aspartate Amino Transf (AST/SGOT) 33 U/L (15-37) Alanine Aminotransferase (ALT/SGPT) 18 U/L (16-63) Alkaline Phosphatase 130 U/L (46-116) Total Protein 5.1 g/dL (6.4-8.2) Albumin 1.6 g/dL (3.4-5.0) Albumin/Globulin Ratio 0.5 (1.0-1.7) Glucose (Fingerstick) 179 mg/dL (70-99) 116 mg/dL (70-99) White Blood Count 2.9 x10^3/uL (4.0-11.0) Red Blood Count 1.92 x10^6/uL (4.30-5.70) Hemoglobin 5.0 g/dL (13.0-17.5) Hematocrit 15.6 % (39.0-53.0) Mean Corpuscular Volume 81 fL (79-100) Mean Corpuscular Hemoglobin 26 pg (25-35) Mean Corpuscular Hemoglobin Concent 32 g/dL (31-37) Red Cell Distribution Width 18.3 % (11.5-14.5) Platelet Count 9 x10^3/uL (140-400) Neutrophils (%) (Auto) 76 % (31-73) Lymphocytes (%) (Auto) 8 % (24-48) Monocytes (%) (Auto) 15 % (0-9) Eosinophils (%) (Auto) 0 % (0-3) Basophils (%) (Auto) 1 % (0-3) Neutrophils # (Auto) 2.2 x10^3uL (1.8-7.7) Lymphocytes # (Auto) 0.2 x10^3/uL (1.0-4.8) Monocytes # (Auto) 0.5 x10^3/uL (0.0-1.1) Eosinophils # (Auto) 0.0 x10^3/uL (0.0-0.7) Basophils # (Auto) 0.0 x10^3/uL (0.0-0.2) Laboratory Tests Test 08/04/18 17:40 08/04/18 20:42 08/05/18 05:45 08/05/18 07:17 Prothrombin Time 19.9 SEC (11.7-14.0) Prothromb Time International Ratio 1.7 (0.8-1.1) Sodium Level 136 mmol/L (136-145) Potassium Level 4.3 mmol/L (3.5-5.1) Chloride Level 104 mmol/L (98-107) Carbon Dioxide Level 21 mmol/L (21-32) Anion Gap 11 (6-14) Blood Urea Nitrogen 20 mg/dL (8-26) Creatinine 1.3 mg/dL (0.7-1.3) Estimated GFR (Cockcroft-Gault) 58.0 BUN/Creatinine Ratio 15 (6-20) Glucose Level 135 mg/dL (70-99) Calcium Level 7.2 mg/dL (8.5-10.1) Total Bilirubin 1.1 mg/dL (0.2-1.0) Aspartate Amino Transf (AST/SGOT) 33 U/L (15-37) Alanine Aminotransferase (ALT/SGPT) 18 U/L (16-63) Alkaline Phosphatase 130 U/L (46-116) Total Protein 5.1 g/dL (6.4-8.2) Albumin 1.6 g/dL (3.4-5.0) Albumin/Globulin Ratio 0.5 (1.0-1.7) Glucose (Fingerstick) 179 mg/dL (70-99) 116 mg/dL (70-99) White Blood Count 2.9 x10^3/uL (4.0-11.0) Red Blood Count 1.92 x10^6/uL (4.30-5.70) Hemoglobin 5.0 g/dL (13.0-17.5) Hematocrit 15.6 % (39.0-53.0) Mean Corpuscular Volume 81 fL (79-100) Mean Corpuscular Hemoglobin 26 pg (25-35) Mean Corpuscular Hemoglobin Concent 32 g/dL (31-37) Red Cell Distribution Width 18.3 % (11.5-14.5) Platelet Count 9 x10^3/uL (140-400) Neutrophils (%) (Auto) 76 % (31-73) Lymphocytes (%) (Auto) 8 % (24-48) Monocytes (%) (Auto) 15 % (0-9) Eosinophils (%) (Auto) 0 % (0-3) Basophils (%) (Auto) 1 % (0-3) Neutrophils # (Auto) 2.2 x10^3uL (1.8-7.7) Lymphocytes # (Auto) 0.2 x10^3/uL (1.0-4.8) Monocytes # (Auto) 0.5 x10^3/uL (0.0-1.1) Eosinophils # (Auto) 0.0 x10^3/uL (0.0-0.7) Basophils # (Auto) 0.0 x10^3/uL (0.0-0.2) VTE Prophylaxis Ordered VTE Prophylaxis Devices: No VTE Pharmacological Prophylaxi: No Assessment/Plan Assessment/Plan Pt is a 52yo male admitted for anemia 1)Anemia- acute on chronic. Recent Hb has been in the 4-6 range. Pt is s/p 2 units PRBC with increase of Hb to 5. Pt getting 2 more units. GI following. Planning on possible EGD today. Likely bloody stools. BP stable 2)Pancytopenia- 2/2 cirrhosis. WBC stable at 2.9. Platelets lower than normal. No active bleeding or oozing, just having increased bruising. 3)Alcoholic cirrhosis- with ascites. Pt states he may be getting paracentesis today. Liver enzymes stable or lower than normal. When pt is no longer NPO will be continued on Rifaximin, Spironolactone 50mg BID and Torsemide 20mg 4)PEM- severe 2/2 above 5)DM2- previously well controlled. Last HbA1C in March was 5.9. Will cut pt's Lantus in half while NPO. Has SSI available. When pt is no longer NPO will be continued on gabapentin 300mg TID 6)HTN- pt currently NPO, will have hydralazine available MAYKEL Pimentel MD Aug 05, 2018 11:22
[2018-08-05] MEDS ORDERED: MORPHINE SULFATE 2 MG/ML VIAL. IV PRN (11:30)
[2018-08-05] MEDS ORDERED: hydrALAZINE 20 MG/ML VIAL. IVP PRN (11:30)
[2018-08-05] MEDS ORDERED: ONDANSETRON PF 4 MG/2 ML VIAL. IV PRN (11:30)
--- NOTE | 2018-08-05 13:13 | PDOC2 ---
CONSULT Date of Consult Date of Consult DATE: 08/05/18 TIME: 13:11 Reason for Consult Reason for Consult: Cirrhosis/melena/pancytopenia Past Medical History Cardiovascular: CAD, CHF, HTN, Hyperlipidemia Pulmonary: Asthma CENTRAL NERVOUS SYSTEM: Periperal neuropathy GI: GERD, GI bleed, Gastritis, Peptic Ulcer disease Heme/Onc: Iron deficiency Anemia Hepatobiliary: Cirrhosis Psych: No pertinent hx Musculoskeletal: Osteoarthritis Rheumatologic: No pertinent hx Infectious disease: No pertinent hx ENT: No pertinent hx Renal/: No pertinent hx Endocrine: Diabetes Dermatology: No pertinent hx Past Surgical History Past Surgical History: CABG, Cataract Removal, Total knee replacement, Other Family History Family History: Diabetes, Stroke Social History <1 pack per day ALCOHOL: other Drugs: None Current Medications Current Medications Current Medications Insulin Glargine (Lantus) 30 units QHS SQ ; Start 08/04/18 at 21:00; Status UNV Insulin Human Lispro (HumaLOG) 0-5 UNITS TIDWMEALS SQ ; Start 08/04/18 at 18:00 Dextrose (Dextrose 50%-Water Syringe) 12.5 gm PRN Q15MIN PRN IV SEE COMMENTS; Start 08/04/18 at 17:15 Ferrous Sulfate (Feosol) 325 mg DAILY PO ; Start 08/05/18 at 09:00 Folic Acid (Folic Acid) 1 mg DAILY PO ; Start 08/05/18 at 09:00 Insulin Glargine (Lantus) 30 units QHS SQ Last administered on 08/04/18at 21:25; Start 08/04/18 at 21:00; Stop 08/05/18 at 11:20; Status DC Rifaximin (Xifaxan) 550 mg Q12HR PO Last administered on 08/04/18at 21:20; Start 08/04/18 at 21:00 Trazodone HCl (Desyrel) 100 mg HS PO Last administered on 08/04/18at 21:21; Start 08/04/18 at 21:00 Gabapentin (Neurontin) 300 mg TID PO Last administered on 08/04/18at 21:21; Start 08/04/18 at 21:00 Oxycodone HCl (Roxicodone) 10 mg PRN BID PRN PO PAIN Last administered on 08/04/18at 23:01; Start 08/04/18 at 17:30 Pantoprazole Sodium (Protonix) 40 mg DAILYAC PO ; Start 08/05/18 at 07:30; Stop 08/05/18 at 07:30; Status DC Spironolactone (Aldactone) 50 mg BID PO Last administered on 08/04/18at 21:21; Start 08/04/18 at 21:00 Torsemide (Demadex) 20 mg DAILY PO ; Start 08/05/18 at 09:00 Pantoprazole Sodium (PROTONIX VIAL for IV PUSH) 40 mg DAILYAC IVP Last administered on 08/05/18at 09:20; Start 08/05/18 at 07:30 Insulin Glargine (Lantus) 15 units QHS SQ ; Start 08/05/18 at 21:00 Hydralazine HCl (Apresoline Inj) 10 mg PRN Q4HRS PRN IVP ELEVATED BP, SEE COMMENTS; Start 08/05/18 at 11:30 Morphine Sulfate (Morphine Sulfate) 2 mg PRN Q2HR PRN IV PAIN Last administered on 08/05/18at 11:36; Start 08/05/18 at 11:30 Ondansetron HCl (Zofran) 4 mg PRN Q6HRS PRN IV NAUSEA/VOMITING; Start 08/05/18 at 11:30 Active Scripts Active Xifaxan (Rifaximin) 550 Mg Tablet 550 Mg PO Q12HR 30 Days Reported Lantus Solostar (Insulin Glargine,Hum.rec.anlog) 100 Unit/1 Ml Insuln.pen 30 Unit SQ QHS Ferrous Sulfate 325 Mg Tablet 325 Mg PO DAILY Trazodone Hcl 100 Mg Tablet 100 Mg PO HS Torsemide 20 Mg Tablet 1 Tab PO DAILY Nexium Capsule (Esomeprazole Magnesium) 40 Mg Capsule.dr 40 Mg PO DAILYAC Gabapentin 600 Mg Tablet 300 Mg PO TID Protonix (Pantoprazole Sodium) 20 Mg Tablet.dr 40 Mg PO DAILY Folic Acid 1 Mg Tablet 1 Mg PO DAILY Oxycodone Hcl 5 Mg Capsule 10 Mg PO PRN BID PRN Spironolactone 25 Mg Tablet 2 Tab PO BID Allergies Allergies: Coded Allergies: No Known Drug Allergies (Unverified , 04/06/18) Vitals VITALS Vital Signs Date Time Temp Pulse Resp B/P (MAP) Pulse Ox O2 Delivery O2 Flow Rate FiO2 08/05/18 12:36 98.4 94 18 152/60 98.4 08/05/18 11:00 94 Room Air Labs Labs Laboratory Tests Test 08/04/18 17:40 08/04/18 20:42 08/05/18 05:45 08/05/18 07:17 Prothrombin Time 19.9 SEC (11.7-14.0) Prothromb Time International Ratio 1.7 (0.8-1.1) Sodium Level 136 mmol/L (136-145) Potassium Level 4.3 mmol/L (3.5-5.1) Chloride Level 104 mmol/L (98-107) Carbon Dioxide Level 21 mmol/L (21-32) Anion Gap 11 (6-14) Blood Urea Nitrogen 20 mg/dL (8-26) Creatinine 1.3 mg/dL (0.7-1.3) Estimated GFR (Cockcroft-Gault) 58.0 BUN/Creatinine Ratio 15 (6-20) Glucose Level 135 mg/dL (70-99) Calcium Level 7.2 mg/dL (8.5-10.1) Total Bilirubin 1.1 mg/dL (0.2-1.0) Aspartate Amino Transf (AST/SGOT) 33 U/L (15-37) Alanine Aminotransferase (ALT/SGPT) 18 U/L (16-63) Alkaline Phosphatase 130 U/L (46-116) Total Protein 5.1 g/dL (6.4-8.2) Albumin 1.6 g/dL (3.4-5.0) Albumin/Globulin Ratio 0.5 (1.0-1.7) Glucose (Fingerstick) 179 mg/dL (70-99) 116 mg/dL (70-99) White Blood Count 2.9 x10^3/uL (4.0-11.0) Red Blood Count 1.92 x10^6/uL (4.30-5.70) Hemoglobin 5.0 g/dL (13.0-17.5) Hematocrit 15.6 % (39.0-53.0) Mean Corpuscular Volume 81 fL (79-100) Mean Corpuscular Hemoglobin 26 pg (25-35) Mean Corpuscular Hemoglobin Concent 32 g/dL (31-37) Red Cell Distribution Width 18.3 % (11.5-14.5) Platelet Count 9 x10^3/uL (140-400) Neutrophils (%) (Auto) 76 % (31-73) Lymphocytes (%) (Auto) 8 % (24-48) Monocytes (%) (Auto) 15 % (0-9) Eosinophils (%) (Auto) 0 % (0-3) Basophils (%) (Auto) 1 % (0-3) Neutrophils # (Auto) 2.2 x10^3uL (1.8-7.7) Lymphocytes # (Auto) 0.2 x10^3/uL (1.0-4.8) Monocytes # (Auto) 0.5 x10^3/uL (0.0-1.1) Eosinophils # (Auto) 0.0 x10^3/uL (0.0-0.7) Basophils # (Auto) 0.0 x10^3/uL (0.0-0.2) Test 08/05/18 11:55 Glucose (Fingerstick) 85 mg/dL (70-99) Laboratory Tests Test 08/04/18 17:40 08/04/18 20:42 08/05/18 05:45 08/05/18 07:17 Prothrombin Time 19.9 SEC (11.7-14.0) Prothromb Time International Ratio 1.7 (0.8-1.1) Sodium Level 136 mmol/L (136-145) Potassium Level 4.3 mmol/L (3.5-5.1) Chloride Level 104 mmol/L (98-107) Carbon Dioxide Level 21 mmol/L (21-32) Anion Gap 11 (6-14) Blood Urea Nitrogen 20 mg/dL (8-26) Creatinine 1.3 mg/dL (0.7-1.3) Estimated GFR (Cockcroft-Gault) 58.0 BUN/Creatinine Ratio 15 (6-20) Glucose Level 135 mg/dL (70-99) Calcium Level 7.2 mg/dL (8.5-10.1) Total Bilirubin 1.1 mg/dL (0.2-1.0) Aspartate Amino Transf (AST/SGOT) 33 U/L (15-37) Alanine Aminotransferase (ALT/SGPT) 18 U/L (16-63) Alkaline Phosphatase 130 U/L (46-116) Total Protein 5.1 g/dL (6.4-8.2) Albumin 1.6 g/dL (3.4-5.0) Albumin/Globulin Ratio 0.5 (1.0-1.7) Glucose (Fingerstick) 179 mg/dL (70-99) 116 mg/dL (70-99) White Blood Count 2.9 x10^3/uL (4.0-11.0) Red Blood Count 1.92 x10^6/uL (4.30-5.70) Hemoglobin 5.0 g/dL (13.0-17.5) Hematocrit 15.6 % (39.0-53.0) Mean Corpuscular Volume 81 fL (79-100) Mean Corpuscular Hemoglobin 26 pg (25-35) Mean Corpuscular Hemoglobin Concent 32 g/dL (31-37) Red Cell Distribution Width 18.3 % (11.5-14.5) Platelet Count 9 x10^3/uL (140-400) Neutrophils (%) (Auto) 76 % (31-73) Lymphocytes (%) (Auto) 8 % (24-48) Monocytes (%) (Auto) 15 % (0-9) Eosinophils (%) (Auto) 0 % (0-3) Basophils (%) (Auto) 1 % (0-3) Neutrophils # (Auto) 2.2 x10^3uL (1.8-7.7) Lymphocytes # (Auto) 0.2 x10^3/uL (1.0-4.8) Monocytes # (Auto) 0.5 x10^3/uL (0.0-1.1) Eosinophils # (Auto) 0.0 x10^3/uL (0.0-0.7) Basophils # (Auto) 0.0 x10^3/uL (0.0-0.2) Test 08/05/18 11:55 Glucose (Fingerstick) 85 mg/dL (70-99) Assessment/Plan Assessment/Plan Cirrhosis-s/p tips with panytopenia, most likely multifactorial in etiology Plan transfusional support heme consult for pancytopenia EGD once Hg > 7 Full note dictated NELLA VACA MD Aug 05, 2018 13:13
[2018-08-05] MEDS: FOLIC ACID 1 MG TABLET. PO SCH (13:29)
[2018-08-05] MEDS: SPIRONOLACTONE 25 MG TABLET PO SCH ×2 (13:29→22:20)
[2018-08-05] MEDS: rifAXIMin 550 MG TABLET PO SCH ×2 (13:29→22:20)
[2018-08-05] MEDS: TORSEMIDE 20 MG TABLET. PO SCH (13:30)
[2018-08-05] MEDS: FERROUS SULFATE 325 MG TABLET. PO SCH (13:30)
--- NOTE | 2018-08-05 14:17 | NUR ---
Patient had been vomiting prior to starting transfusion. BP slightly elevated at start of transfusion
--- NOTE | 2018-08-05 14:29 | NUR ---
pt became very nauseated and vomited multiple times after drinking broth. zofran not effective. new orders for IV reglan from Dr. Moulton. pt made NPO again.
[2018-08-05] MEDS ORDERED: METOCLOPRAMIDE HCL 10 MG/2 ML VIAL. IV PRN (14:30)
[2018-08-05 18:40] LABS: RED BLOOD COUNT 2.58 x10^6/uL (4.30-5.70); RED CELL DISTRIBUTION WIDTH 16.9 % (11.5-14.5)
--- NOTE | 2018-08-05 18:56 | NUR ---
critical results reported to Dr. Moulton. no new orders. advised to report Hgb of [address] Bose as he is wanting to scope pt if Hgb is >7 Addendum: 08/05/18 at 190 by ROSA RIVERA RN Message left w/ Maria M at GI answering service for Dr. Bose Addendum: 08/05/18 at 190 by ROSA RIVERA RN per Dr. Bose, since it takes some time to get blood in house for this patient, have 2 units on hand pending additional transfusion in the morning.
--- NOTE | 2018-08-05 19:06 | NUR ---
critical lab results reported to nirmala Brock Dr.
[2018-08-05] MEDS ORDERED: INSULIN GLARGINE 300 UNITS/3 ML INSULN.PEN. SQ SCH (21:00)
[2018-08-05] MEDS: traZODone 100 MG TABLET. PO SCH (22:20)
[2018-08-06] VITALS (17 sets, daily range): BP systolic 113–166; BP diastolic 47–86
[2018-08-06 05:33] LABS: BASO % 1 % (0-3); EOS # 0.1 x10^3/uL (0.0-0.7); EOS % 3 % (0-3); LYMPH # 0.2 x10^3/uL (1.0-4.8); LYMPH % 11 % (24-48); MEAN CORPUSCULAR HEMOGLOBIN 27 pg (25-35); MEAN CORPUSCULAR HGB CONC 34 g/dL (31-37); MEAN CORPUSCULAR VOLUME 81 fL (79-100); MONO # 0.4 x10^3/uL (0.0-1.1); MONO % 18 % (0-9); NEUT # 1.5 x10^3uL (1.8-7.7); NEUT % 68 % (31-73); RED BLOOD COUNT 2.45 x10^6/uL (4.30-5.70); WHITE BLOOD COUNT 2.2 x10^3/uL (4.0-11.0)
[2018-08-06 05:51] LABS: ALBUMIN 1.6 g/dL (3.4-5.0); ALBUMIN/GLOBULIN RATIO 0.5 (1.0-1.7); CALCIUM 7.2 mg/dL (8.5-10.1); CREATININE 1.4 mg/dL (0.7-1.3); GFR 53.2; POTASSIUM 3.3 mmol/L (3.5-5.1); TOTAL BILIRUBIN 2.7 mg/dL (0.2-1.0); TOTAL PROTEIN 5.1 g/dL (6.4-8.2)
[2018-08-06 07:02] LABS: HEMATOCRIT 19.8 % (39.0-53.0); HEMOGLOBIN 6.7 g/dL (13.0-17.5); PLATELET COUNT 9 x10^3/uL (140-400)
--- NOTE | 2018-08-06 07:02 | CONS ---
DATE OF CONSULTATION: 08/05/2018 REASON FOR CONSULTATION: History of cirrhosis, melena and pancytopenia. HISTORY OF PRESENT ILLNESS: A 52-year-old male with past medical history significant for cirrhosis with variceal bleeding, status post TIPS procedure last winter, is admitted with increased fatigue and abdominal bloating. He states that he gets winded when he walks across the room. Laboratory studies did reveal hemoglobin of 4 on the outside, platelet count is 9, white count is 2.9 and imaging studies did reveal an ultrasound report with patent TIPS. Doppler study may be needed to confirm as there is minimal ascites. The patient otherwise gives no additional history, has been a heavy drinker in the past. PAST MEDICAL HISTORY: Cirrhosis secondary to alcoholism, status post TIPS, varices, CAD, CHF, hypertension, hyperlipidemia. PAST SURGICAL HISTORY: Status post CABG, cataract removal, knee replacement. FAMILY HISTORY: Significant for diabetes and strokes. CURRENT MEDICATIONS: Include insulin, hydralazine, torsemide, folic acid, ferrous sulfate, pantoprazole, spironolactone, gabapentin, trazodone, rifaximin. REVIEW OF SYSTEMS: As per records. PHYSICAL EXAMINATION: GENERAL: Reveals a thin, ill-appearing male. VITAL SIGNS: Temperature 98.4, pulse 94, respiratory rate 18, blood pressure 152/60. HEENT: Normocephalic and atraumatic head. Pupils and extraocular muscles are not tested. Sclerae anicteric. NECK: Supple. LUNGS: Clear. CARDIOVASCULAR: Reveals an S1, S2 without S3, S4 or appreciable murmur. Well-healed midline sternal incision. ABDOMEN: Soft, mildly distended abdomen. Normal bowel sounds without appreciable hepatosplenomegaly. EXTREMITIES: Reveals no cyanosis, clubbing, or edema. LABORATORY STUDIES: Hemoglobin 5, hematocrit 15.6, white count 2.9, platelet count is 9000. Sodium 136, potassium 4.3, chloride 104, bicarb 21, BUN 20, creatinine is 1.3, glucose 135, glucose 179, calcium 7.2, total bilirubin 1.1, AST of 33, ALT of 18, alkaline phosphatase 130, total protein 5.1. Ultrasound reveals apparently patent TIPS, minimal ascites. IMPRESSION: Pancytopenia with cirrhosis, most likely is multifactorial in etiology with alcohol-induced bone marrow suppression among others as well as splenic sequestration of white cells, red cells and platelets. Continued transfusion support will be recommended in addition to hematologic consultation, Dr. Guallpa and associates. Further endoscopic evaluation, but particularly upper endoscopy would be warranted once the patient's hemoglobin is over 7. NELLA VACA MD DR: PAYAM/bib JOB#: [id number] / [id number]
[2018-08-06] MEDS: PANTOPRAZOLE IV PUSH 40 MG VIAL. IVP SCH (07:41)
[2018-08-06] MEDS: INSULIN LISPRO 300 UNITS/3 ML INSULN.PEN. SQ SCH ×3 (08:00→17:00)
[2018-08-06] MEDS: DEXTROSE 50% 25 GM / 50ML DISP.SYRIN. IV PRN (08:26)
[2018-08-06] MEDS: TORSEMIDE 20 MG TABLET. PO SCH (08:27)
[2018-08-06] MEDS: FERROUS SULFATE 325 MG TABLET. PO SCH (08:27)
[2018-08-06] MEDS: GABAPENTIN 300 MG CAPSULE. PO SCH ×3 (08:27→21:31)
[2018-08-06] MEDS: FOLIC ACID 1 MG TABLET. PO SCH (08:28)
[2018-08-06] MEDS: rifAXIMin 550 MG TABLET PO SCH ×2 (08:28→21:31)
[2018-08-06] MEDS: SPIRONOLACTONE 25 MG TABLET PO SCH ×2 (08:28→21:31)
--- NOTE | 2018-08-06 10:49 | CONS ---
DATE OF CONSULTATION: 08/05/2018 REQUESTING PHYSICIAN: Dr. Vamsi Farah. REASON FOR CONSULTATION: Anemia, thrombocytopenia and leukopenia. HISTORY OF PRESENT ILLNESS: The patient is a 52-year-old gentleman who has a history of chronic liver disease, status post TIPS procedure. He used to follow up with h[facility] specialty [facility]er inside at [facility]. In view of the liver disease he has developed chronic pancytopenia. He has had a bone marrow aspiration and biopsy on 01/09/2016 which revealed adequate megakaryocytes. There was evidence of normal hematopoiesis and absent iron stores. He received IV iron infusion in 02/2016. He continues to drink alcohol heavily. He was admitted to [facility] on 08/04/2018 with complaints of abdominal distention and generalized weakness and dark stools. He was noted to have a hemoglobin of 5.0 on 08/05/2018 with a platelet count of 9000 and WBC of 2.9. He denies nosebleeds or gum bleeding. No hematemesis or hematochezia. He has melena. No hemoptysis. No hematuria. PAST MEDICAL HISTORY: Cirrhosis of the liver, iron deficiency anemia, GERD, GI bleed, gastritis, peptic ulcer disease, peripheral neuropathy, asthma, coronary artery disease, congestive heart failure, hypertension, hyperlipidemia, diabetes mellitus. FAMILY HISTORY: Positive for diabetes and stroke. SOCIAL HISTORY: He smokes less than a pack a day. He also has history of heavy alcohol use. REVIEW OF SYSTEMS: A 12-point review of system was performed. Pertinent positives are mentioned in the history of present illness. Rest of the system review is negative. PHYSICAL EXAMINATION: GENERAL APPEARANCE: The patient is a 52-year-old gentleman who is in no acute cardiorespiratory distress. VITAL SIGNS: Blood pressure 170/94, temperature 98.3. HEENT: Atraumatic, normocephalic. EYES: No icterus. NECK: Supple. CHEST: Bilaterally symmetrical. HEART: S1, S2 normal. ABDOMEN: Soft, distended, engorged veins noted on the abdomen. He also has evidence of ecchymosis over the abdomen. CENTRAL NERVOUS SYSTEM: No focal deficits. LYMPHATICS: No lymphadenopathy. SKIN: No rashes. PSYCHOLOGIC: Mood and affect are appropriate. MUSCULOSKELETAL: No joint effusions. LABORATORY DATA: WBC 2.9, hemoglobin 5, MCV 81, platelet count 9000. I reviewed old records and he has evidence of chronic pancytopenia. His platelet was only 10,000 even in 2016 and 15,000 in 2014. Hence the chronic pancytopenia is suggestive of liver disease. IMPRESSION AND PLAN: 1. Thrombocytopenia. He has chronic thrombocytopenia. His platelet count was 15,000 on 11/15/2014. Platelet count is worse at 9000 on 08/05/2018. Etiology is thought to be due to liver disease from alcoholism. He had an ultrasound of the abdomen on 08/05/2018 that revealed cirrhosis of the liver with patent TIPS. Mild ascites and splenomegaly noted. No evidence of bleeding and hence I would not transfuse platelets at this point. If he has any evidence of bleeding or if he needs a procedure, then I would recommend platelet transfusion. The patient understands that the pancytopenia is due to liver disease. He continues to drink alcohol. He mentions that he is trying to quit, but his brother recently and he resumed drinking. I have advised him to quit drinking. 2. Anemia due to cirrhosis of the liver. He also has a history of melena. Agree to consult Gastroenterology for further management. I will also check iron studies, B12 levels. 3. Leukopenia due to cirrhosis of the liver. No evidence of infection. Continue to monitor. 4. Cirrhosis of the liver. Management per Gastroenterology. SHIRLEY ANDERSON MD DR: CELIA/bib JOB#: [id number] / [id number]
--- NOTE | 2018-08-06 11:23 | PDOC ---
SUBJECTIVE Subjective Doing well this morning. States that dizziness and weakness has improved. His nausea has improved. Vomited yesterday when he first tried eating but was able to tolerate CLDs this morning, requesting to increase. Pt getting 2 more units of blood this morning. Still having dark stools. OBJECTIVE Vital Signs Vital Signs Date Time Temp Pulse Resp B/P (MAP) Pulse Ox O2 Delivery O2 Flow Rate FiO2 08/06/18 10:12 98.1 86 18 138/56 98.1 08/06/18 09:05 98.1 89 18 123/47 98.1 08/06/18 08:03 98.5 86 18 132/52 98.5 08/06/18 08:00 Room Air 08/06/18 07:53 Room Air 08/06/18 07:50 98.2 85 18 130/55 98.2 08/06/18 07:00 98.2 85 18 123/48 (73) 96 Room Air 98.2 08/06/18 03:00 98.6 86 18 113/52 (72) 98 Room Air 98.6 08/05/18 22:46 98.2 92 18 151/65 (93) 94 Room Air 98.2 08/05/18 19:00 98.2 94 17 139/68 (91) 95 Room Air 98.2 08/05/18 16:56 88 177/84 08/05/18 16:47 98.3 88 177/84 98.3 08/05/18 15:33 98.1 87 161/73 98.1 08/05/18 15:00 98.1 88 18 161/73 (102) 98 Room Air 98.1 08/05/18 14:31 98.3 105 170/94 98.3 08/05/18 14:16 98.5 112 190/87 98.5 08/05/18 14:15 98.5 109 190/87 98.5 08/05/18 13:38 98.3 96 166/75 98.3 08/05/18 12:36 98.4 94 18 152/60 98.4 08/05/18 11:30 98.5 89 140/50 98.5 08/05/18 11:16 98.4 92 130/42 98.4 I & O Intake and Output 08/06/18 06:59 Intake Total 705 ml Output Total 1000 ml Balance -295 ml Intake Oral 660 ml Blood Product IV Normal Saline Flush 45 ml Output Urine Total 1000 ml # Voids 1 PHYSICAL EXAM Physical Exam GEN.: No apparent distress. Alert and oriented. HEENT: Head is normocephalic, atraumatic NECK: Supple. LUNGS: Clear to auscultation. HEART: RRR, S1, S2 present. Peripheral pulses intact ABDOMEN: Distended, no significant tenderness. Positive bowel sounds. EXTREMITIES: Without any cyanosis. non pitting edema LE bilaterally NEUROLOGIC: Normal speech, normal tone PSYCHIATRIC: Normal affect, normal mood. SKIN: No ulcerations, multiple ecchymosis throughout ASSESSMENT/PLAN Assessment/Plan Pt is a 52yo male admitted for anemia 1)Anemia- acute on chronic. Recent Hb has been in the 4-6 range. Pt is s/p 5 units PRBC, with 1 additional unit starting now. Hb this am after 4 units was 6.7, down from 7 yesterday afternoon. GI and hematology following. GI planning on EGD when Hb >7. Still having dark stools. BP stable 2)Pancytopenia- 2/2 alcoholism/cirrhosis. WBC stable at 2.2. Platelets lower than normal. No active bleeding or oozing, just having increased bruising. Heme following 3)Alcoholic cirrhosis- with ascites. AST ad ALT lower than normal, BiliT increased this am. Pt on Rifaximin, Spironolactone 50mg BID and Torsemide 20mg 4)PEM- severe 2/2 above 5)DM2- previously well controlled. Supratherapeutic, Hba1C this morning is 5. Had decreased pt's Lantus yesterday to 15 units. Fasting BS this am was 53, will decrease to 10 units. Has SSI available. Pt is on gabapentin 300mg TID 6)HTN- moderately controlled with above meds, has Hydralazine available. 8)CKD- Cr stable. COMMENT Lab Laboratory Tests Test 08/05/18 11:55 08/05/18 16:52 08/05/18 17:15 08/05/18 18:15 Glucose (Fingerstick) 85 mg/dL (70-99) 105 mg/dL (70-99) Red Blood Count 2.61 x10^6/uL (4.30-5.70) 2.58 x10^6/uL (4.30-5.70) Absolute Reticulocyte Count 0.086 x10^6/uL (0.020-0.120) Percent Reticulocyte Count 3.3 % (0.5-2.3) Immature Reticulocyte Fraction 0.53 (0.20-0.60) Iron Level 259 ug/dL (65-175) Total Iron Binding Capacity 270 ug/dL (250-450) Iron Saturation 96 % (15-34) Ferritin 29 ng/mL (26-388) White Blood Count 3.0 x10^3/uL (4.0-11.0) Hemoglobin 7.0 g/dL (13.0-17.5) Hematocrit 21.0 % (39.0-53.0) Mean Corpuscular Volume 81 fL (79-100) Mean Corpuscular Hemoglobin 27 pg (25-35) Mean Corpuscular Hemoglobin Concent 33 g/dL (31-37) Red Cell Distribution Width 16.9 % (11.5-14.5) Platelet Count 7 x10^3/uL (140-400) Test 08/05/18 20:39 08/06/18 04:40 08/06/18 08:17 08/06/18 08:49 Glucose (Fingerstick) 141 mg/dL (70-99) 54 mg/dL (70-99) 156 mg/dL (70-99) White Blood Count 2.2 x10^3/uL (4.0-11.0) Red Blood Count 2.45 x10^6/uL (4.30-5.70) Hemoglobin 6.7 g/dL (13.0-17.5) Hematocrit 19.8 % (39.0-53.0) Mean Corpuscular Volume 81 fL (79-100) Mean Corpuscular Hemoglobin 27 pg (25-35) Mean Corpuscular Hemoglobin Concent 34 g/dL (31-37) Red Cell Distribution Width 17.0 % (11.5-14.5) Platelet Count 9 x10^3/uL (140-400) Neutrophils (%) (Auto) 68 % (31-73) Lymphocytes (%) (Auto) 11 % (24-48) Monocytes (%) (Auto) 18 % (0-9) Eosinophils (%) (Auto) 3 % (0-3) Basophils (%) (Auto) 1 % (0-3) Neutrophils # (Auto) 1.5 x10^3uL (1.8-7.7) Lymphocytes # (Auto) 0.2 x10^3/uL (1.0-4.8) Monocytes # (Auto) 0.4 x10^3/uL (0.0-1.1) Eosinophils # (Auto) 0.1 x10^3/uL (0.0-0.7) Basophils # (Auto) 0.0 x10^3/uL (0.0-0.2) Sodium Level 137 mmol/L (136-145) Potassium Level 3.3 mmol/L (3.5-5.1) Chloride Level 105 mmol/L (98-107) Carbon Dioxide Level 23 mmol/L (21-32) Anion Gap 9 (6-14) Blood Urea Nitrogen 21 mg/dL (8-26) Creatinine 1.4 mg/dL (0.7-1.3) Estimated GFR (Cockcroft-Gault) 53.2 BUN/Creatinine Ratio 15 (6-20) Glucose Level 53 mg/dL (70-99) Calcium Level 7.2 mg/dL (8.5-10.1) Total Bilirubin 2.7 mg/dL (0.2-1.0) Aspartate Amino Transf (AST/SGOT) 37 U/L (15-37) Alanine Aminotransferase (ALT/SGPT) 18 U/L (16-63) Alkaline Phosphatase 135 U/L (46-116) Total Protein 5.1 g/dL (6.4-8.2) Albumin 1.6 g/dL (3.4-5.0) Albumin/Globulin Ratio 0.5 (1.0-1.7) MAYKEL SWANSON MD Aug 06, 2018 11:23
--- NOTE | 2018-08-06 13:14 | PDOC ---
PROGRESS NOTES Subjective Subjective HPI - f/u of Thrombocytopenia ROS - has melena Objective Objective Vital Signs Date Time Temp Pulse Resp B/P (MAP) Pulse Ox O2 Delivery O2 Flow Rate FiO2 08/06/18 12:37 98.5 85 18 130/74 98.5 08/06/18 11:00 Room Air 08/06/18 07:00 96 Intake and Output 08/06/18 07:00 Intake Total 705 ml Output Total 1000 ml Balance -295 ml Intake Oral 660 ml Blood Product IV Normal Saline Flush 45 ml Output Urine Total 1000 ml # Voids 1 Physical Exam Heart: Normal S1, Normal S2 General: Alert, Oriented X3 Lungs: Clear to auscultation Neuro: Normal speech Psych/Mental Status: Mental status NL Assessment Assessment IMPRESSION AND PLAN: 1. Thrombocytopenia. He has chronic thrombocytopenia. His platelet count was 15,000 on 11/15/2014. Platelet count is worse at 9000 on 08/05/2018. Etiology is thought to be due to liver disease from alcoholism. BM bx 2015 was neg. Plt 9, has melena, plan 1 plt transfusion. monitor cbc 2. Anemia due to cirrhosis of the liver. He also has a history of melena. Agree to consult Gastroenterology for further management. Iron studies suggest anemia of chronic disease. Hb 6.7, agree to transfuse to keep Hb >7.0. 3. Leukopenia due to cirrhosis of the liver. No evidence of infection. Continue to monitor. 4. Cirrhosis of the liver. Management per Gastroenterology. Comment Review of Relevant I have reviewed the following items lexus (where applicable) has been applied. Labs Laboratory Tests Test 08/04/18 17:40 08/04/18 20:42 08/05/18 05:32 08/05/18 05:45 Prothrombin Time 19.9 SEC (11.7-14.0) Prothromb Time International Ratio 1.7 (0.8-1.1) Sodium Level 136 mmol/L (136-145) Potassium Level 4.3 mmol/L (3.5-5.1) Chloride Level 104 mmol/L (98-107) Carbon Dioxide Level 21 mmol/L (21-32) Anion Gap 11 (6-14) Blood Urea Nitrogen 20 mg/dL (8-26) Creatinine 1.3 mg/dL (0.7-1.3) Estimated GFR (Cockcroft-Gault) 58.0 BUN/Creatinine Ratio 15 (6-20) Glucose Level 135 mg/dL (70-99) Calcium Level 7.2 mg/dL (8.5-10.1) Total Bilirubin 1.1 mg/dL (0.2-1.0) Aspartate Amino Transf (AST/SGOT) 33 U/L (15-37) Alanine Aminotransferase (ALT/SGPT) 18 U/L (16-63) Alkaline Phosphatase 130 U/L (46-116) Total Protein 5.1 g/dL (6.4-8.2) Albumin 1.6 g/dL (3.4-5.0) Albumin/Globulin Ratio 0.5 (1.0-1.7) Glucose (Fingerstick) 179 mg/dL (70-99) Hemoglobin A1c 5.0 % (4.8-5.6) White Blood Count 2.9 x10^3/uL (4.0-11.0) Red Blood Count 1.92 x10^6/uL (4.30-5.70) Hemoglobin 5.0 g/dL (13.0-17.5) Hematocrit 15.6 % (39.0-53.0) Mean Corpuscular Volume 81 fL (79-100) Mean Corpuscular Hemoglobin 26 pg (25-35) Mean Corpuscular Hemoglobin Concent 32 g/dL (31-37) Red Cell Distribution Width 18.3 % (11.5-14.5) Platelet Count 9 x10^3/uL (140-400) Neutrophils (%) (Auto) 76 % (31-73) Lymphocytes (%) (Auto) 8 % (24-48) Monocytes (%) (Auto) 15 % (0-9) Eosinophils (%) (Auto) 0 % (0-3) Basophils (%) (Auto) 1 % (0-3) Neutrophils # (Auto) 2.2 x10^3uL (1.8-7.7) Lymphocytes # (Auto) 0.2 x10^3/uL (1.0-4.8) Monocytes # (Auto) 0.5 x10^3/uL (0.0-1.1) Eosinophils # (Auto) 0.0 x10^3/uL (0.0-0.7) Basophils # (Auto) 0.0 x10^3/uL (0.0-0.2) Test 08/05/18 07:17 08/05/18 11:55 08/05/18 16:52 08/05/18 17:15 Glucose (Fingerstick) 116 mg/dL (70-99) 85 mg/dL (70-99) 105 mg/dL (70-99) Red Blood Count 2.61 x10^6/uL (4.30-5.70) Absolute Reticulocyte Count 0.086 x10^6/uL (0.020-0.120) Percent Reticulocyte Count 3.3 % (0.5-2.3) Immature Reticulocyte Fraction 0.53 (0.20-0.60) Iron Level 259 ug/dL (65-175) Total Iron Binding Capacity 270 ug/dL (250-450) Iron Saturation 96 % (15-34) Ferritin 29 ng/mL (26-388) Test 08/05/18 18:15 08/05/18 20:39 08/06/18 04:40 08/06/18 08:17 White Blood Count 3.0 x10^3/uL (4.0-11.0) 2.2 x10^3/uL (4.0-11.0) Red Blood Count 2.58 x10^6/uL (4.30-5.70) 2.45 x10^6/uL (4.30-5.70) Hemoglobin 7.0 g/dL (13.0-17.5) 6.7 g/dL (13.0-17.5) Hematocrit 21.0 % (39.0-53.0) 19.8 % (39.0-53.0) Mean Corpuscular Volume 81 fL (79-100) 81 fL (79-100) Mean Corpuscular Hemoglobin 27 pg (25-35) 27 pg (25-35) Mean Corpuscular Hemoglobin Concent 33 g/dL (31-37) 34 g/dL (31-37) Red Cell Distribution Width 16.9 % (11.5-14.5) 17.0 % (11.5-14.5) Platelet Count 7 x10^3/uL (140-400) 9 x10^3/uL (140-400) Glucose (Fingerstick) 141 mg/dL (70-99) 54 mg/dL (70-99) Neutrophils (%) (Auto) 68 % (31-73) Lymphocytes (%) (Auto) 11 % (24-48) Monocytes (%) (Auto) 18 % (0-9) Eosinophils (%) (Auto) 3 % (0-3) Basophils (%) (Auto) 1 % (0-3) Neutrophils # (Auto) 1.5 x10^3uL (1.8-7.7) Lymphocytes # (Auto) 0.2 x10^3/uL (1.0-4.8) Monocytes # (Auto) 0.4 x10^3/uL (0.0-1.1) Eosinophils # (Auto) 0.1 x10^3/uL (0.0-0.7) Basophils # (Auto) 0.0 x10^3/uL (0.0-0.2) Sodium Level 137 mmol/L (136-145) Potassium Level 3.3 mmol/L (3.5-5.1) Chloride Level 105 mmol/L (98-107) Carbon Dioxide Level 23 mmol/L (21-32) Anion Gap 9 (6-14) Blood Urea Nitrogen 21 mg/dL (8-26) Creatinine 1.4 mg/dL (0.7-1.3) Estimated GFR (Cockcroft-Gault) 53.2 BUN/Creatinine Ratio 15 (6-20) Glucose Level 53 mg/dL (70-99) Calcium Level 7.2 mg/dL (8.5-10.1) Total Bilirubin 2.7 mg/dL (0.2-1.0) Aspartate Amino Transf (AST/SGOT) 37 U/L (15-37) Alanine Aminotransferase (ALT/SGPT) 18 U/L (16-63) Alkaline Phosphatase 135 U/L (46-116) Total Protein 5.1 g/dL (6.4-8.2) Albumin 1.6 g/dL (3.4-5.0) Albumin/Globulin Ratio 0.5 (1.0-1.7) Test 08/06/18 08:49 08/06/18 12:02 Glucose (Fingerstick) 156 mg/dL (70-99) 96 mg/dL (70-99) Laboratory Tests Test 08/05/18 16:52 08/05/18 17:15 08/05/18 18:15 08/05/18 20:39 Glucose (Fingerstick) 105 mg/dL (70-99) 141 mg/dL (70-99) Red Blood Count 2.61 x10^6/uL (4.30-5.70) 2.58 x10^6/uL (4.30-5.70) Absolute Reticulocyte Count 0.086 x10^6/uL (0.020-0.120) Percent Reticulocyte Count 3.3 % (0.5-2.3) Immature Reticulocyte Fraction 0.53 (0.20-0.60) Iron Level 259 ug/dL (65-175) Total Iron Binding Capacity 270 ug/dL (250-450) Iron Saturation 96 % (15-34) Ferritin 29 ng/mL (26-388) White Blood Count 3.0 x10^3/uL (4.0-11.0) Hemoglobin 7.0 g/dL (13.0-17.5) Hematocrit 21.0 % (39.0-53.0) Mean Corpuscular Volume 81 fL (79-100) Mean Corpuscular Hemoglobin 27 pg (25-35) Mean Corpuscular Hemoglobin Concent 33 g/dL (31-37) Red Cell Distribution Width 16.9 % (11.5-14.5) Platelet Count 7 x10^3/uL (140-400) Test 08/06/18 04:40 08/06/18 08:17 08/06/18 08:49 08/06/18 12:02 White Blood Count 2.2 x10^3/uL (4.0-11.0) Red Blood Count 2.45 x10^6/uL (4.30-5.70) Hemoglobin 6.7 g/dL (13.0-17.5) Hematocrit 19.8 % (39.0-53.0) Mean Corpuscular Volume 81 fL (79-100) Mean Corpuscular Hemoglobin 27 pg (25-35) Mean Corpuscular Hemoglobin Concent 34 g/dL (31-37) Red Cell Distribution Width 17.0 % (11.5-14.5) Platelet Count 9 x10^3/uL (140-400) Neutrophils (%) (Auto) 68 % (31-73) Lymphocytes (%) (Auto) 11 % (24-48) Monocytes (%) (Auto) 18 % (0-9) Eosinophils (%) (Auto) 3 % (0-3) Basophils (%) (Auto) 1 % (0-3) Neutrophils # (Auto) 1.5 x10^3uL (1.8-7.7) Lymphocytes # (Auto) 0.2 x10^3/uL (1.0-4.8) Monocytes # (Auto) 0.4 x10^3/uL (0.0-1.1) Eosinophils # (Auto) 0.1 x10^3/uL (0.0-0.7) Basophils # (Auto) 0.0 x10^3/uL (0.0-0.2) Sodium Level 137 mmol/L (136-145) Potassium Level 3.3 mmol/L (3.5-5.1) Chloride Level 105 mmol/L (98-107) Carbon Dioxide Level 23 mmol/L (21-32) Anion Gap 9 (6-14) Blood Urea Nitrogen 21 mg/dL (8-26) Creatinine 1.4 mg/dL (0.7-1.3) Estimated GFR (Cockcroft-Gault) 53.2 BUN/Creatinine Ratio 15 (6-20) Glucose Level 53 mg/dL (70-99) Calcium Level 7.2 mg/dL (8.5-10.1) Total Bilirubin 2.7 mg/dL (0.2-1.0) Aspartate Amino Transf (AST/SGOT) 37 U/L (15-37) Alanine Aminotransferase (ALT/SGPT) 18 U/L (16-63) Alkaline Phosphatase 135 U/L (46-116) Total Protein 5.1 g/dL (6.4-8.2) Albumin 1.6 g/dL (3.4-5.0) Albumin/Globulin Ratio 0.5 (1.0-1.7) Glucose (Fingerstick) 54 mg/dL (70-99) 156 mg/dL (70-99) 96 mg/dL (70-99) Medications Current Medications Insulin Glargine (Lantus) 30 units QHS SQ ; Start 08/04/18 at 21:00; Status UNV Insulin Human Lispro (HumaLOG) 0-5 UNITS TIDWMEALS SQ ; Start 08/04/18 at 18:00 Dextrose (Dextrose 50%-Water Syringe) 12.5 gm PRN Q15MIN PRN IV SEE COMMENTS Last administered on 08/06/18 08:26; Start 08/04/18 at 17:15 Ferrous Sulfate (Feosol) 325 mg DAILY PO Last administered on 08/06/18 08:27; Start 08/05/18 at 09:00 Folic Acid (Folic Acid) 1 mg DAILY PO Last administered on 08/06/18 08:28; Start 08/05/18 at 09:00 Insulin Glargine (Lantus) 30 units QHS SQ Last administered on 08/04/18 21:25; Start 08/04/18 at 21:00; Stop 08/05/18 at 11:20; Status DC Rifaximin (Xifaxan) 550 mg Q12HR PO Last administered on 08/06/18 08:28; Start 08/04/18 at 21:00 Trazodone HCl (Desyrel) 100 mg HS PO Last administered on 08/05/18 22:20; Start 08/04/18 at 21:00 Gabapentin (Neurontin) 300 mg TID PO Last administered on 08/06/18 08:27; Start 08/04/18 at 21:00 Oxycodone HCl (Roxicodone) 10 mg PRN BID PRN PO PAIN Last administered on 08/04/18at 23:01; Start 08/04/18 at 17:30 Pantoprazole Sodium (Protonix) 40 mg DAILYAC PO ; Start 08/05/18 at 07:30; Stop 08/05/18 at 07:30; Status DC Spironolactone (Aldactone) 50 mg BID PO Last administered on 08/06/18 08:28; Start 08/04/18 at 21:00 Torsemide (Demadex) 20 mg DAILY PO Last administered on 08/06/18 08:27; Start 08/05/18 at 09:00 Pantoprazole Sodium (PROTONIX VIAL for IV PUSH) 40 mg DAILYAC IVP Last administered on 08/06/18 07:41; Start 08/05/18 at 07:30 Insulin Glargine (Lantus) 15 units QHS SQ Last administered on 08/05/18at 22:25; Start 08/05/18 at 21:00; Stop 08/06/18 at 11:11; Status DC Hydralazine HCl (Apresoline Inj) 10 mg PRN Q4HRS PRN IVP ELEVATED BP, SEE COMMENTS Last administered on 08/05/18at 16:56; Start 08/05/18 at 11:30 Morphine Sulfate (Morphine Sulfate) 2 mg PRN Q2HR PRN IV PAIN Last administered on 08/05/18at 11:36; Start 08/05/18 at 11:30 Ondansetron HCl (Zofran) 4 mg PRN Q6HRS PRN IV NAUSEA/VOMITING 1ST CHOICE Last administered on 08/05/18at 14:11; Start 08/05/18 at 11:30 Metoclopramide HCl (Reglan Vial) 5 mg PRN Q6HRS PRN IV NAUSEA/VOMITING 2ND CHOICE Last administered on 08/05/18at 14:34; Start 08/05/18 at 14:30 Insulin Glargine (Lantus) 10 units QHS SQ ; Start 08/06/18 at 21:00 Active Scripts Active Xifaxan (Rifaximin) 550 Mg Tablet 550 Mg PO Q12HR 30 Days Reported Lantus Solostar (Insulin Glargine,Hum.rec.anlog) 100 Unit/1 Ml Insuln.pen 30 Unit SQ QHS Ferrous Sulfate 325 Mg Tablet 325 Mg PO DAILY Trazodone Hcl 100 Mg Tablet 100 Mg PO HS Torsemide 20 Mg Tablet 1 Tab PO DAILY Nexium Capsule (Esomeprazole Magnesium) 40 Mg Capsule.dr 40 Mg PO DAILYAC Gabapentin 600 Mg Tablet 300 Mg PO TID Protonix (Pantoprazole Sodium) 20 Mg Tablet.dr 40 Mg PO DAILY Folic Acid 1 Mg Tablet 1 Mg PO DAILY Oxycodone Hcl 5 Mg Capsule 10 Mg PO PRN BID PRN Spironolactone 25 Mg Tablet 2 Tab PO BID Vitals/I & O Vital Sign - Last 24 Hours 08/05/18 08/05/18 08/05/18 08/05/18 13:38 14:15 14:16 14:31 Temp 98.3 98.5 98.5 98.3 98.3 98.5 98.5 98.3 Pulse 96 109 112 105 B/P (MAP) 166/75 190/87 190/87 170/94 08/05/18 08/05/18 08/05/18 08/05/18 15:00 15:33 16:47 16:56 Temp 98.1 98.1 98.3 98.1 98.1 98.3 Pulse 88 87 88 88 Resp 18 B/P (MAP) 161/73 (102) 161/73 177/84 177/84 Pulse Ox 98 O2 Delivery Room Air 08/05/18 08/05/18 08/06/18 08/06/18 19:00 22:46 03:00 07:00 Temp 98.2 98.2 98.6 98.2 98.2 98.2 98.6 98.2 Pulse 94 92 86 85 Resp 17 18 18 18 B/P (MAP) 139/68 (91) 151/65 (93) 113/52 (72) 123/48 (73) Pulse Ox 95 94 98 96 O2 Delivery Room Air Room Air Room Air Room Air 08/06/18 08/06/18 08/06/18 08/06/18 07:50 07:53 08:00 08:03 Temp 98.2 98.5 98.2 98.5 Pulse 85 86 Resp 18 18 B/P (MAP) 130/55 132/52 O2 Delivery Room Air Room Air 08/06/18 08/06/18 08/06/18 08/06/18 09:05 10:12 11:00 11:23 Temp 98.1 98.1 98.3 98.1 98.1 98.3 Pulse 89 86 74 Resp 18 18 18 B/P (MAP) 123/47 138/56 133/50 (77) 138/61 O2 Delivery Room Air 08/06/18 08/06/18 11:37 12:37 Temp 98.8 98.5 98.8 98.5 Pulse 76 85 Resp 18 18 B/P (MAP) 133/55 130/74 Intake and Output 08/05/18 08/05/18 08/06/18 15:00 23:00 07:00 Intake Total 205 ml 20 ml 480 ml Output Total 200 ml 800 ml Balance 5 ml -780 ml 480 ml SHIRLEY ANDERSON MD Aug 06, 2018 13:14
--- NOTE | 2018-08-06 14:39 | PDOC ---
G I PROGRESS NOTE Reason for Follow-up Pancytopenia Subjective No new complaints Physical Exam Lungs clear CV S1 S2 ABD +BS, soft, distended Review of Relevant I have reviewed the following items lexus (where applicable) has been applied. Labs Laboratory Tests Test 08/04/18 17:40 08/04/18 20:42 08/05/18 05:32 08/05/18 05:45 Prothrombin Time 19.9 SEC (11.7-14.0) Prothromb Time International Ratio 1.7 (0.8-1.1) Sodium Level 136 mmol/L (136-145) Potassium Level 4.3 mmol/L (3.5-5.1) Chloride Level 104 mmol/L (98-107) Carbon Dioxide Level 21 mmol/L (21-32) Anion Gap 11 (6-14) Blood Urea Nitrogen 20 mg/dL (8-26) Creatinine 1.3 mg/dL (0.7-1.3) Estimated GFR (Cockcroft-Gault) 58.0 BUN/Creatinine Ratio 15 (6-20) Glucose Level 135 mg/dL (70-99) Calcium Level 7.2 mg/dL (8.5-10.1) Total Bilirubin 1.1 mg/dL (0.2-1.0) Aspartate Amino Transf (AST/SGOT) 33 U/L (15-37) Alanine Aminotransferase (ALT/SGPT) 18 U/L (16-63) Alkaline Phosphatase 130 U/L (46-116) Total Protein 5.1 g/dL (6.4-8.2) Albumin 1.6 g/dL (3.4-5.0) Albumin/Globulin Ratio 0.5 (1.0-1.7) Glucose (Fingerstick) 179 mg/dL (70-99) Hemoglobin A1c 5.0 % (4.8-5.6) White Blood Count 2.9 x10^3/uL (4.0-11.0) Red Blood Count 1.92 x10^6/uL (4.30-5.70) Hemoglobin 5.0 g/dL (13.0-17.5) Hematocrit 15.6 % (39.0-53.0) Mean Corpuscular Volume 81 fL (79-100) Mean Corpuscular Hemoglobin 26 pg (25-35) Mean Corpuscular Hemoglobin Concent 32 g/dL (31-37) Red Cell Distribution Width 18.3 % (11.5-14.5) Platelet Count 9 x10^3/uL (140-400) Neutrophils (%) (Auto) 76 % (31-73) Lymphocytes (%) (Auto) 8 % (24-48) Monocytes (%) (Auto) 15 % (0-9) Eosinophils (%) (Auto) 0 % (0-3) Basophils (%) (Auto) 1 % (0-3) Neutrophils # (Auto) 2.2 x10^3uL (1.8-7.7) Lymphocytes # (Auto) 0.2 x10^3/uL (1.0-4.8) Monocytes # (Auto) 0.5 x10^3/uL (0.0-1.1) Eosinophils # (Auto) 0.0 x10^3/uL (0.0-0.7) Basophils # (Auto) 0.0 x10^3/uL (0.0-0.2) Test 08/05/18 07:17 08/05/18 11:55 08/05/18 16:52 08/05/18 17:15 Glucose (Fingerstick) 116 mg/dL (70-99) 85 mg/dL (70-99) 105 mg/dL (70-99) Red Blood Count 2.61 x10^6/uL (4.30-5.70) Absolute Reticulocyte Count 0.086 x10^6/uL (0.020-0.120) Percent Reticulocyte Count 3.3 % (0.5-2.3) Immature Reticulocyte Fraction 0.53 (0.20-0.60) Iron Level 259 ug/dL (65-175) Total Iron Binding Capacity 270 ug/dL (250-450) Iron Saturation 96 % (15-34) Ferritin 29 ng/mL (26-388) Test 08/05/18 18:15 08/05/18 20:39 08/06/18 04:40 08/06/18 08:17 White Blood Count 3.0 x10^3/uL (4.0-11.0) 2.2 x10^3/uL (4.0-11.0) Red Blood Count 2.58 x10^6/uL (4.30-5.70) 2.45 x10^6/uL (4.30-5.70) Hemoglobin 7.0 g/dL (13.0-17.5) 6.7 g/dL (13.0-17.5) Hematocrit 21.0 % (39.0-53.0) 19.8 % (39.0-53.0) Mean Corpuscular Volume 81 fL (79-100) 81 fL (79-100) Mean Corpuscular Hemoglobin 27 pg (25-35) 27 pg (25-35) Mean Corpuscular Hemoglobin Concent 33 g/dL (31-37) 34 g/dL (31-37) Red Cell Distribution Width 16.9 % (11.5-14.5) 17.0 % (11.5-14.5) Platelet Count 7 x10^3/uL (140-400) 9 x10^3/uL (140-400) Glucose (Fingerstick) 141 mg/dL (70-99) 54 mg/dL (70-99) Neutrophils (%) (Auto) 68 % (31-73) Lymphocytes (%) (Auto) 11 % (24-48) Monocytes (%) (Auto) 18 % (0-9) Eosinophils (%) (Auto) 3 % (0-3) Basophils (%) (Auto) 1 % (0-3) Neutrophils # (Auto) 1.5 x10^3uL (1.8-7.7) Lymphocytes # (Auto) 0.2 x10^3/uL (1.0-4.8) Monocytes # (Auto) 0.4 x10^3/uL (0.0-1.1) Eosinophils # (Auto) 0.1 x10^3/uL (0.0-0.7) Basophils # (Auto) 0.0 x10^3/uL (0.0-0.2) Sodium Level 137 mmol/L (136-145) Potassium Level 3.3 mmol/L (3.5-5.1) Chloride Level 105 mmol/L (98-107) Carbon Dioxide Level 23 mmol/L (21-32) Anion Gap 9 (6-14) Blood Urea Nitrogen 21 mg/dL (8-26) Creatinine 1.4 mg/dL (0.7-1.3) Estimated GFR (Cockcroft-Gault) 53.2 BUN/Creatinine Ratio 15 (6-20) Glucose Level 53 mg/dL (70-99) Calcium Level 7.2 mg/dL (8.5-10.1) Total Bilirubin 2.7 mg/dL (0.2-1.0) Aspartate Amino Transf (AST/SGOT) 37 U/L (15-37) Alanine Aminotransferase (ALT/SGPT) 18 U/L (16-63) Alkaline Phosphatase 135 U/L (46-116) Total Protein 5.1 g/dL (6.4-8.2) Albumin 1.6 g/dL (3.4-5.0) Albumin/Globulin Ratio 0.5 (1.0-1.7) Test 08/06/18 08:49 08/06/18 12:02 Glucose (Fingerstick) 156 mg/dL (70-99) 96 mg/dL (70-99) Laboratory Tests Test 08/05/18 16:52 08/05/18 17:15 08/05/18 18:15 08/05/18 20:39 Glucose (Fingerstick) 105 mg/dL (70-99) 141 mg/dL (70-99) Red Blood Count 2.61 x10^6/uL (4.30-5.70) 2.58 x10^6/uL (4.30-5.70) Absolute Reticulocyte Count 0.086 x10^6/uL (0.020-0.120) Percent Reticulocyte Count 3.3 % (0.5-2.3) Immature Reticulocyte Fraction 0.53 (0.20-0.60) Iron Level 259 ug/dL (65-175) Total Iron Binding Capacity 270 ug/dL (250-450) Iron Saturation 96 % (15-34) Ferritin 29 ng/mL (26-388) White Blood Count 3.0 x10^3/uL (4.0-11.0) Hemoglobin 7.0 g/dL (13.0-17.5) Hematocrit 21.0 % (39.0-53.0) Mean Corpuscular Volume 81 fL (79-100) Mean Corpuscular Hemoglobin 27 pg (25-35) Mean Corpuscular Hemoglobin Concent 33 g/dL (31-37) Red Cell Distribution Width 16.9 % (11.5-14.5) Platelet Count 7 x10^3/uL (140-400) Test 08/06/18 04:40 08/06/18 08:17 08/06/18 08:49 08/06/18 12:02 White Blood Count 2.2 x10^3/uL (4.0-11.0) Red Blood Count 2.45 x10^6/uL (4.30-5.70) Hemoglobin 6.7 g/dL (13.0-17.5) Hematocrit 19.8 % (39.0-53.0) Mean Corpuscular Volume 81 fL (79-100) Mean Corpuscular Hemoglobin 27 pg (25-35) Mean Corpuscular Hemoglobin Concent 34 g/dL (31-37) Red Cell Distribution Width 17.0 % (11.5-14.5) Platelet Count 9 x10^3/uL (140-400) Neutrophils (%) (Auto) 68 % (31-73) Lymphocytes (%) (Auto) 11 % (24-48) Monocytes (%) (Auto) 18 % (0-9) Eosinophils (%) (Auto) 3 % (0-3) Basophils (%) (Auto) 1 % (0-3) Neutrophils # (Auto) 1.5 x10^3uL (1.8-7.7) Lymphocytes # (Auto) 0.2 x10^3/uL (1.0-4.8) Monocytes # (Auto) 0.4 x10^3/uL (0.0-1.1) Eosinophils # (Auto) 0.1 x10^3/uL (0.0-0.7) Basophils # (Auto) 0.0 x10^3/uL (0.0-0.2) Sodium Level 137 mmol/L (136-145) Potassium Level 3.3 mmol/L (3.5-5.1) Chloride Level 105 mmol/L (98-107) Carbon Dioxide Level 23 mmol/L (21-32) Anion Gap 9 (6-14) Blood Urea Nitrogen 21 mg/dL (8-26) Creatinine 1.4 mg/dL (0.7-1.3) Estimated GFR (Cockcroft-Gault) 53.2 BUN/Creatinine Ratio 15 (6-20) Glucose Level 53 mg/dL (70-99) Calcium Level 7.2 mg/dL (8.5-10.1) Total Bilirubin 2.7 mg/dL (0.2-1.0) Aspartate Amino Transf (AST/SGOT) 37 U/L (15-37) Alanine Aminotransferase (ALT/SGPT) 18 U/L (16-63) Alkaline Phosphatase 135 U/L (46-116) Total Protein 5.1 g/dL (6.4-8.2) Albumin 1.6 g/dL (3.4-5.0) Albumin/Globulin Ratio 0.5 (1.0-1.7) Glucose (Fingerstick) 54 mg/dL (70-99) 156 mg/dL (70-99) 96 mg/dL (70-99) Medications Current Medications Insulin Glargine (Lantus) 30 units QHS SQ ; Start 08/04/18 at 21:00; Status UNV Insulin Human Lispro (HumaLOG) 0-5 UNITS TIDWMEALS SQ ; Start 08/04/18 at 18:00 Dextrose (Dextrose 50%-Water Syringe) 12.5 gm PRN Q15MIN PRN IV SEE COMMENTS Last administered on 08/06/18 08:26; Start 08/04/18 at 17:15 Ferrous Sulfate (Feosol) 325 mg DAILY PO Last administered on 08/06/18 08:27; Start 08/05/18 at 09:00 Folic Acid (Folic Acid) 1 mg DAILY PO Last administered on 08/06/18 08:28; Start 08/05/18 at 09:00 Insulin Glargine (Lantus) 30 units QHS SQ Last administered on 08/04/18at 21:25; Start 08/04/18 at 21:00; Stop 08/05/18 at 11:20; Status DC Rifaximin (Xifaxan) 550 mg Q12HR PO Last administered on 08/06/18 08:28; Start 08/04/18 at 21:00 Trazodone HCl (Desyrel) 100 mg HS PO Last administered on 08/05/18at 22:20; Start 08/04/18 at 21:00 Gabapentin (Neurontin) 300 mg TID PO Last administered on 08/06/18 08:27; Start 08/04/18 at 21:00 Oxycodone HCl (Roxicodone) 10 mg PRN BID PRN PO PAIN Last administered on 08/04/18at 23:01; Start 08/04/18 at 17:30 Pantoprazole Sodium (Protonix) 40 mg DAILYAC PO ; Start 08/05/18 at 07:30; Stop 08/05/18 at 07:30; Status DC Spironolactone (Aldactone) 50 mg BID PO Last administered on 08/06/18at 08:28; Start 08/04/18 at 21:00 Torsemide (Demadex) 20 mg DAILY PO Last administered on 08/06/18at 08:27; Start 08/05/18 at 09:00 Pantoprazole Sodium (PROTONIX VIAL for IV PUSH) 40 mg DAILYAC IVP Last administered on 08/06/18at 07:41; Start 08/05/18 at 07:30 Insulin Glargine (Lantus) 15 units QHS SQ Last administered on 08/05/18 22:25; Start 08/05/18 at 21:00; Stop 08/06/18 at 11:11; Status DC Hydralazine HCl (Apresoline Inj) 10 mg PRN Q4HRS PRN IVP ELEVATED BP, SEE COMMENTS Last administered on 08/05/18at 16:56; Start 08/05/18 at 11:30 Morphine Sulfate (Morphine Sulfate) 2 mg PRN Q2HR PRN IV PAIN Last administered on 08/05/18at 11:36; Start 08/05/18 at 11:30 Ondansetron HCl (Zofran) 4 mg PRN Q6HRS PRN IV NAUSEA/VOMITING 1ST CHOICE Last administered on 08/05/18at 14:11; Start 08/05/18 at 11:30 Metoclopramide HCl (Reglan Vial) 5 mg PRN Q6HRS PRN IV NAUSEA/VOMITING 2ND CHOICE Last administered on 08/05/18at 14:34; Start 08/05/18 at 14:30 Insulin Glargine (Lantus) 10 units QHS SQ ; Start 08/06/18 at 21:00 Active Scripts Active Xifaxan (Rifaximin) 550 Mg Tablet 550 Mg PO Q12HR 30 Days Reported Lantus Solostar (Insulin Glargine,Hum.rec.anlog) 100 Unit/1 Ml Insuln.pen 30 Unit SQ QHS Ferrous Sulfate 325 Mg Tablet 325 Mg PO DAILY Trazodone Hcl 100 Mg Tablet 100 Mg PO HS Torsemide 20 Mg Tablet 1 Tab PO DAILY Nexium Capsule (Esomeprazole Magnesium) 40 Mg Capsule.dr 40 Mg PO DAILYAC Gabapentin 600 Mg Tablet 300 Mg PO TID Protonix (Pantoprazole Sodium) 20 Mg Tablet.dr 40 Mg PO DAILY Folic Acid 1 Mg Tablet 1 Mg PO DAILY Oxycodone Hcl 5 Mg Capsule 10 Mg PO PRN BID PRN Spironolactone 25 Mg Tablet 2 Tab PO BID Vitals/I & O Vital Sign - Last 24 Hours 08/05/18 08/05/18 08/05/18 08/05/18 15:00 15:33 16:47 16:56 Temp 98.1 98.1 98.3 98.1 98.1 98.3 Pulse 88 87 88 88 Resp 18 B/P (MAP) 161/73 (102) 161/73 177/84 177/84 Pulse Ox 98 O2 Delivery Room Air 08/05/18 08/05/18 08/06/18 08/06/18 19:00 22:46 03:00 07:00 Temp 98.2 98.2 98.6 98.2 98.2 98.2 98.6 98.2 Pulse 94 92 86 85 Resp 17 18 18 18 B/P (MAP) 139/68 (91) 151/65 (93) 113/52 (72) 123/48 (73) Pulse Ox 95 94 98 96 O2 Delivery Room Air Room Air Room Air Room Air 08/06/18 08/06/18 08/06/18 08/06/18 07:50 07:53 08:00 08:03 Temp 98.2 98.5 98.2 98.5 Pulse 85 86 Resp 18 18 B/P (MAP) 130/55 132/52 O2 Delivery Room Air Room Air 08/06/18 08/06/18 08/06/18 08/06/18 09:05 10:12 11:00 11:23 Temp 98.1 98.1 98.3 98.1 98.1 98.3 Pulse 89 86 74 Resp 18 18 18 B/P (MAP) 123/47 138/56 133/50 (77) 138/61 O2 Delivery Room Air 08/06/18 08/06/18 08/06/18 11:37 12:37 13:42 Temp 98.8 98.5 98.5 98.8 98.5 98.5 Pulse 76 85 79 Resp 18 18 18 B/P (MAP) 133/55 130/74 132/56 Intake and Output 08/05/18 08/05/18 08/06/18 15:00 23:00 07:00 Intake Total 205 ml 20 ml 480 ml Output Total 200 ml 800 ml Balance 5 ml -780 ml 480 ml Problem List Pancytopenia- with ESLD and continued alcohol use with BM suppression, prognosis guarded, 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
[2018-08-06] MEDS ORDERED: INSULIN GLARGINE 300 UNITS/3 ML INSULN.PEN. SQ SCH (21:00)
[2018-08-06 21:28] LABS: FECAL OB PT POSITIVE (NEG)
[2018-08-06] MEDS: traZODone 100 MG TABLET. PO SCH (21:31)
[2018-08-07] VITALS (7 sets, daily range): BP systolic 131–158; BP diastolic 58–80
[2018-08-07] MEDS: TORSEMIDE 20 MG TABLET. PO SCH (07:43)
[2018-08-07] MEDS: FERROUS SULFATE 325 MG TABLET. PO SCH (07:43)
[2018-08-07] MEDS: FOLIC ACID 1 MG TABLET. PO SCH (07:43)
[2018-08-07] MEDS: SPIRONOLACTONE 25 MG TABLET PO SCH ×2 (07:43→21:50)
[2018-08-07] MEDS: GABAPENTIN 300 MG CAPSULE. PO SCH ×3 (07:44→21:50)
[2018-08-07] MEDS: rifAXIMin 550 MG TABLET PO SCH ×2 (07:44→21:50)
[2018-08-07 07:50] LABS: BASO % 1 % (0-3); EOS # 0.1 x10^3/uL (0.0-0.7); EOS % 4 % (0-3); HEMATOCRIT 25.9 % (39.0-53.0); HEMOGLOBIN 8.6 g/dL (13.0-17.5); LYMPH # 0.5 x10^3/uL (1.0-4.8); LYMPH % 18 % (24-48); MEAN CORPUSCULAR HEMOGLOBIN 27 pg (25-35); MEAN CORPUSCULAR HGB CONC 33 g/dL (31-37); MEAN CORPUSCULAR VOLUME 82 fL (79-100); MONO # 0.5 x10^3/uL (0.0-1.1); MONO % 17 % (0-9); NEUT # 1.8 x10^3uL (1.8-7.7); NEUT % 61 % (31-73); RED BLOOD COUNT 3.15 x10^6/uL (4.30-5.70); RED CELL DISTRIBUTION WIDTH 16.5 % (11.5-14.5)
[2018-08-07 07:54] LABS: PLATELET COUNT 16 x10^3/uL (140-400)
[2018-08-07] MEDS: INSULIN LISPRO 300 UNITS/3 ML INSULN.PEN. SQ SCH ×3 (08:00→17:00)
[2018-08-07] MEDS: PANTOPRAZOLE IV PUSH 40 MG VIAL. IVP SCH (08:12)
[2018-08-07] MEDS: DEXTROSE 50% 25 GM / 50ML DISP.SYRIN. IV PRN (08:12)
--- NOTE | 2018-08-07 08:57 | PDOC ---
PROGRESS NOTES Subjective Hgb better at 8.6, platelets better but only 16, no new symptoms, glucose 67 overnight Objective Afebrile General: NAD Heart: RRR without murmur Lungs: clear Abd: soft, non tender Ext: pedal edema Hgb: 8.6 Vital Signs Vital Signs Date Time Temp Pulse Resp B/P (MAP) Pulse Ox O2 Delivery O2 Flow Rate FiO2 08/07/18 07:00 98.4 84 18 133/58 (83) 94 Room Air 98.4 I & O Intake and Output 08/07/18 07:00 Intake Total 1795 ml Output Total 550 ml Balance 1245 ml Intake Oral 1720 ml Blood Product IV Normal Saline Flush 75 ml Output Urine Total 550 ml # Voids 1 Assessment and Plan GI bleed - Hgb up after 6units pRBC, complicated by thrombocytopenia - needs EGD - could give platelets cirrhosis type 2 diabetes - mild overnight hypoglycemia - will decrease insulin as not on regular diet Pedro BARRETT MD Aug 07, 2018 08:57
--- NOTE | 2018-08-07 12:42 | PDOC ---
PROGRESS NOTES Subjective Subjective HPI -f/u of Thrombocytopenia. ROS - he still has melena Objective Objective Vital Signs Date Time Temp Pulse Resp B/P (MAP) Pulse Ox O2 Delivery O2 Flow Rate FiO2 08/07/18 11:00 97.4 84 19 135/72 (93) 95 Room Air 97.4 Intake and Output 08/07/18 06:59 Intake Total 1795 ml Output Total 550 ml Balance 1245 ml Intake Oral 1720 ml Blood Product IV Normal Saline Flush 75 ml Output Urine Total 550 ml # Voids 1 Physical Exam Heart: Normal S1, Normal S2 General: Alert, Oriented X3 Lungs: Clear to auscultation MUSCULOSKELETAL: No joint tenderness Neuro: Normal speech Psych/Mental Status: Mental status NL Assessment Assessment IMPRESSION AND PLAN: 1. Thrombocytopenia. He has chronic thrombocytopenia. His platelet count was 15,000 on 11/15/2014. Platelet count is worse at 9000 on 08/05/2018. Etiology is thought to be due to liver disease from alcoholism. BM bx 2015 was neg. Plt 9, 08/06/18 has melena, s/p 1 plt transfusion. monitor cbc Plt 16 on 08/07/18. Plan 1 more unit plt. 2. Anemia due to cirrhosis of the liver. He also has a history of melena. Agree to consult Gastroenterology for further management. Iron studies suggest anemia of chronic disease. Hb 8.6, agree to transfuse to keep Hb >7.0. 3. Leukopenia due to cirrhosis of the liver. No evidence of infection. Continue to monitor. 4. Cirrhosis of the liver. Management per Gastroenterology. Comment Review of Relevant I have reviewed the following items lexus (where applicable) has been applied. Labs Laboratory Tests Test 08/05/18 16:52 08/05/18 17:15 08/05/18 18:15 08/05/18 20:39 Glucose (Fingerstick) 105 mg/dL (70-99) 141 mg/dL (70-99) Red Blood Count 2.61 x10^6/uL (4.30-5.70) 2.58 x10^6/uL (4.30-5.70) Absolute Reticulocyte Count 0.086 x10^6/uL (0.020-0.120) Percent Reticulocyte Count 3.3 % (0.5-2.3) Immature Reticulocyte Fraction 0.53 (0.20-0.60) Iron Level 259 ug/dL (65-175) Total Iron Binding Capacity 270 ug/dL (250-450) Iron Saturation 96 % (15-34) Ferritin 29 ng/mL (26-388) Vitamin B12 Level 768 pg/mL (247-911) White Blood Count 3.0 x10^3/uL (4.0-11.0) Hemoglobin 7.0 g/dL (13.0-17.5) Hematocrit 21.0 % (39.0-53.0) Mean Corpuscular Volume 81 fL (79-100) Mean Corpuscular Hemoglobin 27 pg (25-35) Mean Corpuscular Hemoglobin Concent 33 g/dL (31-37) Red Cell Distribution Width 16.9 % (11.5-14.5) Platelet Count 7 x10^3/uL (140-400) Test 08/05/18 23:45 08/06/18 04:40 08/06/18 08:17 08/06/18 08:49 Stool Occult Blood Positive (NEG) White Blood Count 2.2 x10^3/uL (4.0-11.0) Red Blood Count 2.45 x10^6/uL (4.30-5.70) Hemoglobin 6.7 g/dL (13.0-17.5) Hematocrit 19.8 % (39.0-53.0) Mean Corpuscular Volume 81 fL (79-100) Mean Corpuscular Hemoglobin 27 pg (25-35) Mean Corpuscular Hemoglobin Concent 34 g/dL (31-37) Red Cell Distribution Width 17.0 % (11.5-14.5) Platelet Count 9 x10^3/uL (140-400) Neutrophils (%) (Auto) 68 % (31-73) Lymphocytes (%) (Auto) 11 % (24-48) Monocytes (%) (Auto) 18 % (0-9) Eosinophils (%) (Auto) 3 % (0-3) Basophils (%) (Auto) 1 % (0-3) Neutrophils # (Auto) 1.5 x10^3uL (1.8-7.7) Lymphocytes # (Auto) 0.2 x10^3/uL (1.0-4.8) Monocytes # (Auto) 0.4 x10^3/uL (0.0-1.1) Eosinophils # (Auto) 0.1 x10^3/uL (0.0-0.7) Basophils # (Auto) 0.0 x10^3/uL (0.0-0.2) Sodium Level 137 mmol/L (136-145) Potassium Level 3.3 mmol/L (3.5-5.1) Chloride Level 105 mmol/L (98-107) Carbon Dioxide Level 23 mmol/L (21-32) Anion Gap 9 (6-14) Blood Urea Nitrogen 21 mg/dL (8-26) Creatinine 1.4 mg/dL (0.7-1.3) Estimated GFR (Cockcroft-Gault) 53.2 BUN/Creatinine Ratio 15 (6-20) Glucose Level 53 mg/dL (70-99) Calcium Level 7.2 mg/dL (8.5-10.1) Total Bilirubin 2.7 mg/dL (0.2-1.0) Aspartate Amino Transf (AST/SGOT) 37 U/L (15-37) Alanine Aminotransferase (ALT/SGPT) 18 U/L (16-63) Alkaline Phosphatase 135 U/L (46-116) Total Protein 5.1 g/dL (6.4-8.2) Albumin 1.6 g/dL (3.4-5.0) Albumin/Globulin Ratio 0.5 (1.0-1.7) Glucose (Fingerstick) 54 mg/dL (70-99) 156 mg/dL (70-99) Test 08/06/18 12:02 08/06/18 17:01 08/06/18 20:07 08/07/18 07:26 Glucose (Fingerstick) 96 mg/dL (70-99) 128 mg/dL (70-99) 194 mg/dL (70-99) White Blood Count 3.0 x10^3/uL (4.0-11.0) Red Blood Count 3.15 x10^6/uL (4.30-5.70) Hemoglobin 8.6 g/dL (13.0-17.5) Hematocrit 25.9 % (39.0-53.0) Mean Corpuscular Volume 82 fL (79-100) Mean Corpuscular Hemoglobin 27 pg (25-35) Mean Corpuscular Hemoglobin Concent 33 g/dL (31-37) Red Cell Distribution Width 16.5 % (11.5-14.5) Platelet Count 16 x10^3/uL (140-400) Neutrophils (%) (Auto) 61 % (31-73) Lymphocytes (%) (Auto) 18 % (24-48) Monocytes (%) (Auto) 17 % (0-9) Eosinophils (%) (Auto) 4 % (0-3) Basophils (%) (Auto) 1 % (0-3) Neutrophils # (Auto) 1.8 x10^3uL (1.8-7.7) Lymphocytes # (Auto) 0.5 x10^3/uL (1.0-4.8) Monocytes # (Auto) 0.5 x10^3/uL (0.0-1.1) Eosinophils # (Auto) 0.1 x10^3/uL (0.0-0.7) Basophils # (Auto) 0.0 x10^3/uL (0.0-0.2) Test 08/07/18 07:46 08/07/18 08:41 08/07/18 11:59 Glucose (Fingerstick) 67 mg/dL (70-99) 98 mg/dL (70-99) 255 mg/dL (70-99) Laboratory Tests Test 08/06/18 17:01 08/06/18 20:07 08/07/18 07:26 08/07/18 07:46 Glucose (Fingerstick) 128 mg/dL (70-99) 194 mg/dL (70-99) 67 mg/dL (70-99) White Blood Count 3.0 x10^3/uL (4.0-11.0) Red Blood Count 3.15 x10^6/uL (4.30-5.70) Hemoglobin 8.6 g/dL (13.0-17.5) Hematocrit 25.9 % (39.0-53.0) Mean Corpuscular Volume 82 fL (79-100) Mean Corpuscular Hemoglobin 27 pg (25-35) Mean Corpuscular Hemoglobin Concent 33 g/dL (31-37) Red Cell Distribution Width 16.5 % (11.5-14.5) Platelet Count 16 x10^3/uL (140-400) Neutrophils (%) (Auto) 61 % (31-73) Lymphocytes (%) (Auto) 18 % (24-48) Monocytes (%) (Auto) 17 % (0-9) Eosinophils (%) (Auto) 4 % (0-3) Basophils (%) (Auto) 1 % (0-3) Neutrophils # (Auto) 1.8 x10^3uL (1.8-7.7) Lymphocytes # (Auto) 0.5 x10^3/uL (1.0-4.8) Monocytes # (Auto) 0.5 x10^3/uL (0.0-1.1) Eosinophils # (Auto) 0.1 x10^3/uL (0.0-0.7) Basophils # (Auto) 0.0 x10^3/uL (0.0-0.2) Test 08/07/18 08:41 08/07/18 11:59 Glucose (Fingerstick) 98 mg/dL (70-99) 255 mg/dL (70-99) Medications Current Medications Insulin Glargine (Lantus) 30 units QHS SQ ; Start 08/04/18 at 21:00; Status UNV Insulin Human Lispro (HumaLOG) 0-5 UNITS TIDWMEALS SQ Last administered on 08/07/18at 12:08; Start 08/04/18 at 18:00 Dextrose (Dextrose 50%-Water Syringe) 12.5 gm PRN Q15MIN PRN IV SEE COMMENTS Last administered on 08/07/18at 08:12; Start 08/04/18 at 17:15 Ferrous Sulfate (Feosol) 325 mg DAILY PO Last administered on 08/06/18at 08:27; Start 08/05/18 at 09:00 Folic Acid (Folic Acid) 1 mg DAILY PO Last administered on 08/06/18 08:28; Start 08/05/18 at 09:00 Insulin Glargine (Lantus) 30 units QHS SQ Last administered on 08/04/18at 21:25; Start 08/04/18 at 21:00; Stop 08/05/18 at 11:20; Status DC Rifaximin (Xifaxan) 550 mg Q12HR PO Last administered on 08/06/18at 21:31; Start 08/04/18 at 21:00 Trazodone HCl (Desyrel) 100 mg HS PO Last administered on 08/06/18 21:31; Start 08/04/18 at 21:00 Gabapentin (Neurontin) 300 mg TID PO Last administered on 08/06/18 21:31; Start 08/04/18 at 21:00 Oxycodone HCl (Roxicodone) 10 mg PRN BID PRN PO PAIN Last administered on 08/04/18 23:01; Start 08/04/18 at 17:30 Pantoprazole Sodium (Protonix) 40 mg DAILYAC PO ; Start 08/05/18 at 07:30; Stop 08/05/18 at 07:30; Status DC Spironolactone (Aldactone) 50 mg BID PO Last administered on 08/06/18 21:31; Start 08/04/18 at 21:00 Torsemide (Demadex) 20 mg DAILY PO Last administered on 08/06/18 08:27; Start 08/05/18 at 09:00 Pantoprazole Sodium (PROTONIX VIAL for IV PUSH) 40 mg DAILYAC IVP Last administered on 08/07/18 08:12; Start 08/05/18 at 07:30 Insulin Glargine (Lantus) 15 units QHS SQ Last administered on 08/05/18 22:25; Start 08/05/18 at 21:00; Stop 08/06/18 at 11:11; Status DC Hydralazine HCl (Apresoline Inj) 10 mg PRN Q4HRS PRN IVP ELEVATED BP, SEE COMMENTS Last administered on 08/05/18 16:56; Start 08/05/18 at 11:30 Morphine Sulfate (Morphine Sulfate) 2 mg PRN Q2HR PRN IV PAIN Last administered on 08/05/18 11:36; Start 08/05/18 at 11:30 Ondansetron HCl (Zofran) 4 mg PRN Q6HRS PRN IV NAUSEA/VOMITING 1ST CHOICE Last administered on 08/05/18 14:11; Start 08/05/18 at 11:30 Metoclopramide HCl (Reglan Vial) 5 mg PRN Q6HRS PRN IV NAUSEA/VOMITING 2ND CHOICE Last administered on 08/05/18 14:34; Start 08/05/18 at 14:30 Insulin Glargine (Lantus) 10 units QHS SQ Last administered on 08/06/18at 21:35; Start 08/06/18 at 21:00; Stop 08/07/18 at 12:26; Status DC Insulin Glargine (Lantus) 8 units QHS SQ ; Start 08/07/18 at 21:00 Active Scripts Active Xifaxan (Rifaximin) 550 Mg Tablet 550 Mg PO Q12HR 30 Days Reported Lantus Solostar (Insulin Glargine,Hum.rec.anlog) 100 Unit/1 Ml Insuln.pen 30 Unit SQ QHS Ferrous Sulfate 325 Mg Tablet 325 Mg PO DAILY Trazodone Hcl 100 Mg Tablet 100 Mg PO HS Torsemide 20 Mg Tablet 1 Tab PO DAILY Nexium Capsule (Esomeprazole Magnesium) 40 Mg Capsule.dr 40 Mg PO DAILYAC Gabapentin 600 Mg Tablet 300 Mg PO TID Protonix (Pantoprazole Sodium) 20 Mg Tablet.dr 40 Mg PO DAILY Folic Acid 1 Mg Tablet 1 Mg PO DAILY Oxycodone Hcl 5 Mg Capsule 10 Mg PO PRN BID PRN Spironolactone 25 Mg Tablet 2 Tab PO BID Vitals/I & O Vital Sign - Last 24 Hours 08/06/18 08/06/18 08/06/18 08/06/18 13:42 15:20 16:01 16:15 Temp 98.5 98.5 98.2 98.2 98.5 98.5 98.2 98.2 Pulse 79 81 85 88 Resp 18 B/P (MAP) 132/56 126/52 (76) 147/69 131/59 Pulse Ox 98 O2 Delivery Room Air 08/06/18 08/06/18 08/06/18 08/07/18 17:14 19:00 23:00 03:00 Temp 98.1 98.3 98.0 98.8 98.1 98.3 98.0 98.8 Pulse 97 86 88 80 Resp 18 16 16 16 B/P (MAP) 166/86 131/48 (75) 142/68 (92) 139/61 (87) Pulse Ox 95 96 97 O2 Delivery Room Air Room Air Room Air 08/07/18 08/07/18 08/07/18 07:00 08:00 11:00 Temp 98.4 97.4 98.4 97.4 Pulse 84 84 Resp 18 19 B/P (MAP) 133/58 (83) 135/72 (93) Pulse Ox 94 95 O2 Delivery Room Air Room Air Room Air Intake and Output 08/06/18 08/06/18 08/07/18 14:59 22:59 06:59 Intake Total 775 ml 520 ml 500 ml Output Total 550 ml Balance 225 ml 520 ml 500 ml SHIRLEY ANDERSON MD Aug 07, 2018 12:42
--- NOTE | 2018-08-07 13:59 | PDOC ---
Subjective: Subjective: Denies bleeding - did have dark liquid stools ("almost black") for 1.5-2 weeks at home. Started drinking again after brother ~3 weeks ago. Takes Nexium and torsemide at home. Tolerating diet (GI soft). Objective: Objective: RN called this morning - pt was NPO and she was told there were plans for EGD. On IV Reglan and PPI. Also Xifaxan, torsemide, spironolactone. S/p transfusion 6 units pRBCS and 1 unit plts - 2 more units plts ordered. Vital Signs: Vital Signs Date Time Temp Pulse Resp B/P (MAP) Pulse Ox O2 Delivery O2 Flow Rate FiO2 08/07/18 11:00 97.4 84 19 135/72 (93) 95 Room Air 97.4 Labs: Laboratory Tests Test 08/06/18 17:01 08/06/18 20:07 08/07/18 07:46 08/07/18 08:41 Glucose (Fingerstick) 128 mg/dL (70-99) 194 mg/dL (70-99) 67 mg/dL (70-99) 98 mg/dL (70-99) Test 08/07/18 11:59 Glucose (Fingerstick) 255 mg/dL (70-99) PE: GEN: NAD LUNGS: CTAB HEART: RRR ABD: distended, non-tender NEURO/PSYCH: A & O 3 A/P: Pancytopenia and coagulopathy w/ cirrhosis s/p TIPS (patent) -reflux and portal hypertensive gastropathy on EGD earlier this year, on PPI at home -h/o variceal banding in 2017 (no varices on most recent EGD) -?previous colonoscopy -still drinking -abd distended - mild ascites on US 08/05 Dark stools - ?resolved -- Orders for more platelets. Can change to PO PPI since eating. No plans for EGD today. Other per Dr. Robledo. BEBO KWOK Aug 07, 2018 13:59
[2018-08-07] MEDS: oxyCODONE IR 5 MG TABLET PO PRN (14:03)
[2018-08-07 15:17] LABS: CREATININE 1.5 mg/dL (0.7-1.3); GFR 49.1; POTASSIUM 3.1 mmol/L (3.5-5.1)
[2018-08-07 15:35] LABS: ALBUMIN 1.7 g/dL (3.4-5.0); ALBUMIN/GLOBULIN RATIO 0.5 (1.0-1.7); TOTAL BILIRUBIN 2.5 mg/dL (0.2-1.0); TOTAL PROTEIN 4.9 g/dL (6.4-8.2)
[2018-08-07] MEDS ORDERED: POTASSIUM CHLORIDE 10 MEQ TABLET.ER. PO ONE (16:15)
[2018-08-07] MEDS ORDERED: INSULIN GLARGINE 300 UNITS/3 ML INSULN.PEN. SQ SCH (21:00)
[2018-08-07] MEDS: traZODone 100 MG TABLET. PO SCH (21:50)
[2018-08-08 03:06] VITALS: BP 138/65
[2018-08-08 03:59] LABS: BASO % 1 % (0-3); EOS # 0.1 x10^3/uL (0.0-0.7); EOS % 4 % (0-3); HEMATOCRIT 23.5 % (39.0-53.0); HEMOGLOBIN 7.9 g/dL (13.0-17.5); LYMPH # 0.4 x10^3/uL (1.0-4.8); LYMPH % 16 % (24-48); MEAN CORPUSCULAR HEMOGLOBIN 28 pg (25-35); MEAN CORPUSCULAR HGB CONC 34 g/dL (31-37); MEAN CORPUSCULAR VOLUME 83 fL (79-100); MONO # 0.4 x10^3/uL (0.0-1.1); MONO % 17 % (0-9); NEUT # 1.5 x10^3uL (1.8-7.7); NEUT % 63 % (31-73); PLATELET COUNT 29 x10^3/uL (140-400); RED BLOOD COUNT 2.82 x10^6/uL (4.30-5.70); RED CELL DISTRIBUTION WIDTH 16.6 % (11.5-14.5); WHITE BLOOD COUNT 2.4 x10^3/uL (4.0-11.0)
[2018-08-08 04:17] LABS: CALCIUM 6.9 mg/dL (8.5-10.1); CREATININE 1.4 mg/dL (0.7-1.3); GFR 53.2; POTASSIUM 3.4 mmol/L (3.5-5.1)
[2018-08-08 07:15] VITALS: BP 147/90
[2018-08-08] MEDS ORDERED: PANTOPRAZOLE 40 MG TABLET.DR. PO SCH (07:30)
[2018-08-08] MEDS: INSULIN LISPRO 300 UNITS/3 ML INSULN.PEN. SQ SCH ×3 (07:48→17:55)
[2018-08-08] MEDS ORDERED: POTASSIUM CHLORIDE 10 MEQ TABLET.ER. PO SCH (08:00)
[2018-08-08] MEDS: FOLIC ACID 1 MG TABLET. PO SCH (08:10)
[2018-08-08] MEDS: SPIRONOLACTONE 25 MG TABLET PO SCH (08:10)
[2018-08-08] MEDS: GABAPENTIN 300 MG CAPSULE. PO SCH ×2 (08:10→13:39)
[2018-08-08] MEDS: TORSEMIDE 20 MG TABLET. PO SCH (08:10)
[2018-08-08] MEDS: rifAXIMin 550 MG TABLET PO SCH (08:10)
[2018-08-08] MEDS: FERROUS SULFATE 325 MG TABLET. PO SCH (08:10)
[2018-08-08] MEDS: oxyCODONE IR 5 MG TABLET PO PRN (08:14)
--- NOTE | 2018-08-08 09:46 | PDOC ---
Subjective: Subjective: Says he was told he might go home this evening. Tolerating PO, no bleeding or stools. Objective: Vital Signs: Vital Signs Date Time Temp Pulse Resp B/P (MAP) Pulse Ox O2 Delivery O2 Flow Rate FiO2 08/08/18 08:14 Room Air 08/08/18 07:15 98.2 76 18 147/90 (109) 96 98.2 Labs: Laboratory Tests Test 08/07/18 11:59 08/07/18 16:42 08/07/18 20:47 08/08/18 03:45 Glucose (Fingerstick) 255 mg/dL 103 mg/dL 231 mg/dL White Blood Count 2.4 x10^3/uL Red Blood Count 2.82 x10^6/uL Hemoglobin 7.9 g/dL Hematocrit 23.5 % Mean Corpuscular Volume 83 fL Mean Corpuscular Hemoglobin 28 pg Mean Corpuscular Hemoglobin Concent 34 g/dL Red Cell Distribution Width 16.6 % Platelet Count 29 x10^3/uL Neutrophils (%) (Auto) 63 % Lymphocytes (%) (Auto) 16 % Monocytes (%) (Auto) 17 % Eosinophils (%) (Auto) 4 % Basophils (%) (Auto) 1 % Neutrophils # (Auto) 1.5 x10^3uL Lymphocytes # (Auto) 0.4 x10^3/uL Monocytes # (Auto) 0.4 x10^3/uL Eosinophils # (Auto) 0.1 x10^3/uL Basophils # (Auto) 0.0 x10^3/uL Sodium Level 137 mmol/L Potassium Level 3.4 mmol/L Chloride Level 105 mmol/L Carbon Dioxide Level 25 mmol/L Anion Gap 7 Blood Urea Nitrogen 13 mg/dL Creatinine 1.4 mg/dL Estimated GFR (Cockcroft-Gault) 53.2 Glucose Level 162 mg/dL Calcium Level 6.9 mg/dL Test 08/08/18 07:39 Glucose (Fingerstick) 114 mg/dL PE: GEN: NAD LUNGS: CTAB HEART: RRR ABD: NABS, S/ND/NT NEURO/PSYCH: A & O 3 A/P: Pancytopenia/coagulopathy, recent melena (resolved), cirrhosis s/p TIPS, h/o portal gastropathy - still drinking -- DC per primary. Continue PPI. Stop drinking. BEBO KWOK Aug 08, 2018 09:46
[2018-08-08 10:46] VITALS: BP 159/74
--- NOTE | 2018-08-08 11:35 | PDOC ---
PROGRESS NOTES Subjective Subjective HPI - f/u of Thrombocytopenia ROS - melena resolved Objective Objective Vital Signs Date Time Temp Pulse Resp B/P (MAP) Pulse Ox O2 Delivery O2 Flow Rate FiO2 08/08/18 10:46 97.8 78 20 159/74 (102) 96 Room Air 97.8 Intake and Output 08/08/18 07:00 Intake Total 690 ml Balance 690 ml Intake Oral 460 ml Blood Product IV Normal Saline Flush 230 ml # Voids 4 Physical Exam General: Alert, Oriented X3, No acute distress Neuro: Normal speech Psych/Mental Status: Mental status NL Assessment Assessment IMPRESSION AND PLAN: 1. Thrombocytopenia. He has chronic thrombocytopenia. His platelet count was 15,000 on 11/15/2014. Platelet count is worse at 9000 on 08/05/2018. Etiology is thought to be due to liver disease from alcoholism. BM bx 2015 was neg. Plt 9, 08/06/18 has melena, s/p 1 plt transfusion. monitor cbc Plt 16 on 08/07/18. s/p 1 more unit plt. Plt better at 29 on 08/08/18. No more transfusions as melena has resolved. 2. Anemia due to cirrhosis of the liver. He also has a history of melena. Agree to consult Gastroenterology for further management. Iron studies suggest anemia of chronic disease. Hb 7.9, monitor prn. 3. Leukopenia due to cirrhosis of the liver. No evidence of infection. Continue to monitor. 4. Cirrhosis of the liver. Management per Gastroenterology. Comment Review of Relevant I have reviewed the following items lexus (where applicable) has been applied. Labs Laboratory Tests Test 08/06/18 12:02 08/06/18 17:01 08/06/18 20:07 08/07/18 07:26 Glucose (Fingerstick) 96 mg/dL (70-99) 128 mg/dL (70-99) 194 mg/dL (70-99) White Blood Count 3.0 x10^3/uL (4.0-11.0) Red Blood Count 3.15 x10^6/uL (4.30-5.70) Hemoglobin 8.6 g/dL (13.0-17.5) Hematocrit 25.9 % (39.0-53.0) Mean Corpuscular Volume 82 fL (79-100) Mean Corpuscular Hemoglobin 27 pg (25-35) Mean Corpuscular Hemoglobin Concent 33 g/dL (31-37) Red Cell Distribution Width 16.5 % (11.5-14.5) Platelet Count 16 x10^3/uL (140-400) Neutrophils (%) (Auto) 61 % (31-73) Lymphocytes (%) (Auto) 18 % (24-48) Monocytes (%) (Auto) 17 % (0-9) Eosinophils (%) (Auto) 4 % (0-3) Basophils (%) (Auto) 1 % (0-3) Neutrophils # (Auto) 1.8 x10^3uL (1.8-7.7) Lymphocytes # (Auto) 0.5 x10^3/uL (1.0-4.8) Monocytes # (Auto) 0.5 x10^3/uL (0.0-1.1) Eosinophils # (Auto) 0.1 x10^3/uL (0.0-0.7) Basophils # (Auto) 0.0 x10^3/uL (0.0-0.2) Sodium Level 139 mmol/L (136-145) Potassium Level 3.1 mmol/L (3.5-5.1) Chloride Level 105 mmol/L (98-107) Carbon Dioxide Level 24 mmol/L (21-32) Anion Gap 10 (6-14) Blood Urea Nitrogen 15 mg/dL (8-26) Creatinine 1.5 mg/dL (0.7-1.3) Estimated GFR (Cockcroft-Gault) 49.1 BUN/Creatinine Ratio 10 (6-20) Glucose Level 66 mg/dL (70-99) Calcium Level 7.0 mg/dL (8.5-10.1) Total Bilirubin 2.5 mg/dL (0.2-1.0) Aspartate Amino Transf (AST/SGOT) 38 U/L (15-37) Alanine Aminotransferase (ALT/SGPT) 21 U/L (16-63) Alkaline Phosphatase 150 U/L (46-116) Total Protein 4.9 g/dL (6.4-8.2) Albumin 1.7 g/dL (3.4-5.0) Albumin/Globulin Ratio 0.5 (1.0-1.7) Test 08/07/18 07:46 08/07/18 08:41 08/07/18 11:59 08/07/18 16:42 Glucose (Fingerstick) 67 mg/dL (70-99) 98 mg/dL (70-99) 255 mg/dL (70-99) 103 mg/dL (70-99) Test 08/07/18 20:47 08/08/18 03:45 08/08/18 07:39 08/08/18 11:24 Glucose (Fingerstick) 231 mg/dL (70-99) 114 mg/dL (70-99) 162 mg/dL (70-99) White Blood Count 2.4 x10^3/uL (4.0-11.0) Red Blood Count 2.82 x10^6/uL (4.30-5.70) Hemoglobin 7.9 g/dL (13.0-17.5) Hematocrit 23.5 % (39.0-53.0) Mean Corpuscular Volume 83 fL (79-100) Mean Corpuscular Hemoglobin 28 pg (25-35) Mean Corpuscular Hemoglobin Concent 34 g/dL (31-37) Red Cell Distribution Width 16.6 % (11.5-14.5) Platelet Count 29 x10^3/uL (140-400) Neutrophils (%) (Auto) 63 % (31-73) Lymphocytes (%) (Auto) 16 % (24-48) Monocytes (%) (Auto) 17 % (0-9) Eosinophils (%) (Auto) 4 % (0-3) Basophils (%) (Auto) 1 % (0-3) Neutrophils # (Auto) 1.5 x10^3uL (1.8-7.7) Lymphocytes # (Auto) 0.4 x10^3/uL (1.0-4.8) Monocytes # (Auto) 0.4 x10^3/uL (0.0-1.1) Eosinophils # (Auto) 0.1 x10^3/uL (0.0-0.7) Basophils # (Auto) 0.0 x10^3/uL (0.0-0.2) Sodium Level 137 mmol/L (136-145) Potassium Level 3.4 mmol/L (3.5-5.1) Chloride Level 105 mmol/L (98-107) Carbon Dioxide Level 25 mmol/L (21-32) Anion Gap 7 (6-14) Blood Urea Nitrogen 13 mg/dL (8-26) Creatinine 1.4 mg/dL (0.7-1.3) Estimated GFR (Cockcroft-Gault) 53.2 Glucose Level 162 mg/dL (70-99) Calcium Level 6.9 mg/dL (8.5-10.1) Laboratory Tests Test 08/07/18 11:59 08/07/18 16:42 08/07/18 20:47 08/08/18 03:45 Glucose (Fingerstick) 255 mg/dL (70-99) 103 mg/dL (70-99) 231 mg/dL (70-99) White Blood Count 2.4 x10^3/uL (4.0-11.0) Red Blood Count 2.82 x10^6/uL (4.30-5.70) Hemoglobin 7.9 g/dL (13.0-17.5) Hematocrit 23.5 % (39.0-53.0) Mean Corpuscular Volume 83 fL (79-100) Mean Corpuscular Hemoglobin 28 pg (25-35) Mean Corpuscular Hemoglobin Concent 34 g/dL (31-37) Red Cell Distribution Width 16.6 % (11.5-14.5) Platelet Count 29 x10^3/uL (140-400) Neutrophils (%) (Auto) 63 % (31-73) Lymphocytes (%) (Auto) 16 % (24-48) Monocytes (%) (Auto) 17 % (0-9) Eosinophils (%) (Auto) 4 % (0-3) Basophils (%) (Auto) 1 % (0-3) Neutrophils # (Auto) 1.5 x10^3uL (1.8-7.7) Lymphocytes # (Auto) 0.4 x10^3/uL (1.0-4.8) Monocytes # (Auto) 0.4 x10^3/uL (0.0-1.1) Eosinophils # (Auto) 0.1 x10^3/uL (0.0-0.7) Basophils # (Auto) 0.0 x10^3/uL (0.0-0.2) Sodium Level 137 mmol/L (136-145) Potassium Level 3.4 mmol/L (3.5-5.1) Chloride Level 105 mmol/L (98-107) Carbon Dioxide Level 25 mmol/L (21-32) Anion Gap 7 (6-14) Blood Urea Nitrogen 13 mg/dL (8-26) Creatinine 1.4 mg/dL (0.7-1.3) Estimated GFR (Cockcroft-Gault) 53.2 Glucose Level 162 mg/dL (70-99) Calcium Level 6.9 mg/dL (8.5-10.1) Test 08/08/18 07:39 08/08/18 11:24 Glucose (Fingerstick) 114 mg/dL (70-99) 162 mg/dL (70-99) Medications Current Medications Insulin Glargine (Lantus) 30 units QHS SQ ; Start 08/04/18 at 21:00; Status UNV Insulin Human Lispro (HumaLOG) 0-5 UNITS TIDWMEALS SQ Last administered on 08/07/18 12:08; Start 08/04/18 at 18:00 Dextrose (Dextrose 50%-Water Syringe) 12.5 gm PRN Q15MIN PRN IV SEE COMMENTS L ast administered on 08/07/18 08:12; Start 08/04/18 at 17:15 Ferrous Sulfate (Feosol) 325 mg DAILY PO Last administered on 08/08/18 08:10; Start 08/05/18 at 09:00 Folic Acid (Folic Acid) 1 mg DAILY PO Last administered on 08/08/18 08:10; Start 08/05/18 at 09:00 Insulin Glargine (Lantus) 30 units QHS SQ Last administered on 08/04/18 21:25; Start 08/04/18 at 21:00; Stop 08/05/18 at 11:20; Status DC Rifaximin (Xifaxan) 550 mg Q12HR PO Last administered on 08/08/18 08:10; Start 08/04/18 at 21:00 Trazodone HCl (Desyrel) 100 mg HS PO Last administered on 08/07/18 21:50; Start 08/04/18 at 21:00 Gabapentin (Neurontin) 300 mg TID PO Last administered on 08/08/18 08:10; Start 08/04/18 at 21:00 Oxycodone HCl (Roxicodone) 10 mg PRN BID PRN PO PAIN Last administered on 08/08/18 08:14; Start 08/04/18 at 17:30 Pantoprazole Sodium (Protonix) 40 mg DAILYAC PO ; Start 08/05/18 at 07:30; Stop 08/05/18 at 07:30; Status DC Spironolactone (Aldactone) 50 mg BID PO Last administered on 08/08/18 08:10; Start 08/04/18 at 21:00 Torsemide (Demadex) 20 mg DAILY PO Last administered on 08/08/18 08:10; Start 08/05/18 at 09:00 Pantoprazole Sodium (PROTONIX VIAL for IV PUSH) 40 mg DAILYAC IVP Last administered on 08/07/18 08:12; Start 08/05/18 at 07:30; Stop 08/07/18 at 14:00; Status DC Insulin Glargine (Lantus) 15 units QHS SQ Last administered on 08/05/18 22:25; Start 08/05/18 at 21:00; Stop 08/06/18 at 11:11; Status DC Hydralazine HCl (Apresoline Inj) 10 mg PRN Q4HRS PRN IVP ELEVATED BP, SEE COMMENTS Last administered on 08/05/18 16:56; Start 08/05/18 at 11:30 Morphine Sulfate (Morphine Sulfate) 2 mg PRN Q2HR PRN IV PAIN Last administered on 08/05/18 11:36; Start 08/05/18 at 11:30 Ondansetron HCl (Zofran) 4 mg PRN Q6HRS PRN IV NAUSEA/VOMITING 1ST CHOICE Last administered on 08/05/18 14:11; Start 08/05/18 at 11:30 Metoclopramide HCl (Reglan Vial) 5 mg PRN Q6HRS PRN IV NAUSEA/VOMITING 2ND CHOICE Last administered on 08/05/18 14:34; Start 08/05/18 at 14:30 Insulin Glargine (Lantus) 10 units QHS SQ Last administered on 08/06/18 21:35; Start 08/06/18 at 21:00; Stop 08/07/18 at 12:26; Status DC Insulin Glargine (Lantus) 8 units QHS SQ Last administered on 08/07/18at 21:57; Start 08/07/18 at 21:00 Pantoprazole Sodium (Protonix) 40 mg DAILYAC PO Last administered on 08/08/18at 06:39; Start 08/08/18 at 07:30 Potassium Chloride (Klor-Con) 10 meq 1X ONCE PO Last administered on 08/07/18at 17:14; Start 08/07/18 at 16:15; Stop 08/07/18 at 16:18; Status DC Potassium Chloride (Klor-Con) 10 meq DAILYWBKFT PO Last administered on 08/08/18at 08:10; Start 08/08/18 at 08:00 Active Scripts Active Xifaxan (Rifaximin) 550 Mg Tablet 550 Mg PO Q12HR 30 Days Reported Lantus Solostar (Insulin Glargine,Hum.rec.anlog) 100 Unit/1 Ml Insuln.pen 30 Unit SQ QHS Ferrous Sulfate 325 Mg Tablet 325 Mg PO DAILY Trazodone Hcl 100 Mg Tablet 100 Mg PO HS Torsemide 20 Mg Tablet 1 Tab PO DAILY Nexium Capsule (Esomeprazole Magnesium) 40 Mg Capsule.dr 40 Mg PO DAILYAC Gabapentin 600 Mg Tablet 300 Mg PO TID Protonix (Pantoprazole Sodium) 20 Mg Tablet.dr 40 Mg PO DAILY Folic Acid 1 Mg Tablet 1 Mg PO DAILY Oxycodone Hcl 5 Mg Capsule 10 Mg PO PRN BID PRN Spironolactone 25 Mg Tablet 2 Tab PO BID Vitals/I & O Vital Sign - Last 24 Hours 08/07/18 08/07/18 08/07/18 08/07/18 14:00 15:00 15:00 19:00 Temp 98.3 98.6 98.6 97.8 98.3 98.6 98.6 97.8 Pulse 74 98 98 82 Resp 20 18 16 20 B/P (MAP) 152/76 131/76 131/76 (94) 157/80 (105) Pulse Ox 97 97 O2 Delivery Room Air Room Air 08/07/18 08/07/18 08/08/18 08/08/18 20:00 23:00 03:06 07:15 Temp 98.0 98.5 98.2 98.0 98.5 98.2 Pulse 79 78 76 Resp 20 22 18 B/P (MAP) 158/77 (104) 138/65 (89) 147/90 (109) Pulse Ox 95 96 96 O2 Delivery Room Air Room Air Room Air Room Air 08/08/18 08/08/18 08/08/18 08/08/18 08:00 08:14 10:03 10:46 Temp 97.8 97.8 Pulse 78 Resp 20 B/P (MAP) 159/74 (102) Pulse Ox 96 96 O2 Delivery Room Air Room Air Room Air Room Air Intake and Output 08/07/18 08/07/18 08/08/18 15:00 23:00 07:00 Intake Total 230 ml 460 ml Balance 230 ml 460 ml SHIRLEY ANDERSON MD Aug 08, 2018 11:35
--- NOTE | 2018-08-08 14:40 | NUR ---
SW following pt for anticipated dc needs. Chart reviewed and no SW needs noted. Will continue to evaluate dc needs.
[2018-08-08 15:00] VITALS: BP 164/84
[2018-08-08] MEDS ORDERED: INSU100I13 SQ (16:47)
[2018-08-08] MEDS ORDERED: POTA10TA12 PO (16:47)
--- NOTE | 2018-08-08 16:57 | PDOC3 ---
Discharge Summary [facility] Date of Admission: August 04, 2018 Discharge Date: Aug 08, 2018 Admitting Diagnosis GI bleed Final Diagnosis GI bleed CONSULTS GI, Heme Procedures transfusion of platelets and pRBC Brief Hospital Course Mr. Caceres is a 52 old who presented with fatigue and found to have a hemoglobin of 4.1 and admitted 1)Anemia- acute on chronic. Recent Hb has been in the 4-6 range. He received 6 units PRBC and several units of platelets, GI and hematology following. Melena finally stopped, EGD not thought to be helpful to clinical course 2)Pancytopenia- 2/2 alcoholism/cirrhosis. WBC stable at 2.2. Platelets lower than normal initially but improved with transfusion. No active bleeding or oozing, just having increased bruising 3)Alcoholic cirrhosis- with ascites. AST ad ALT lower than normal, He was continued on Rifaximin, Spironolactone 50mg BID and Torsemide 20mg 4)PEM- severe 2/2 above 5)DM2- previously well controlled. Supratherapeutic, Hba1C this morning is 5. Had decreased pt's Lantus to 8 units from preadmission dose of 30 units. Pt continued on gabapentin 300mg TID 6)HTN- moderately controlled with above meds, also had Hydralazine available. 8)CKD- Cr stable. Patient History: Family history: Diabetes mellitus (situation) G8 BROTHER Disposition home CONDITION AT DISCHARGE: Improved, Stable Diet avoid alcohol Scheduled Esomeprazole Magnesium (Nexium Capsule), 40 MG PO DAILYAC, (Reported) Folic Acid (Folic Acid), 1 MG PO DAILY, (Reported) Gabapentin (Gabapentin), 300 MG PO TID, (Reported) Insulin Glargine,Hum.rec.anlog (Lantus Solostar), 8 UNITS SQ QHS Potassium Chloride (Klor-Con 10), 10 MEQ PO DAILYWBKFT Rifaximin (Xifaxan), 550 MG PO Q12HR Spironolactone (Spironolactone), 2 TAB PO BID, (Reported) Torsemide (Torsemide), 1 TAB PO DAILY, (Reported) Trazodone Hcl (Trazodone Hcl), 100 MG PO HS, (Reported) Scheduled PRN Oxycodone Hcl (Oxycodone Hcl), 10 MG PO PRN BID PRN for PAIN, (Reported) Discontinued Medications Ferrous Sulfate (Ferrous Sulfate), 325 MG PO DAILY, (Reported) Insulin Glargine,Hum.rec.anlog (Lantus Solostar), 30 UNIT SQ QHS, (Reported) Pantoprazole Sodium (Protonix), 40 MG PO DAILY, (Reported) Follow Up 1 week Pedro BARRETT MD Aug 08, 2018 16:57
--- NOTE | 2018-08-08 18:24 | NUR ---
Discharge Note: DARIO RYAN Discharge instructions and discharge home medications reviewed with Patient and a copy given. All questions have been answered and understanding verbalized. The following instructions and handouts were given: discharge instructions, new prescriptions, education and follow up recommendations. Discontinued lines and drains: peripheral iv discontinued intact. 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
== END 2018-08-08 18:26 | disposition home or self-care (01) | DRG 432 ==
LOC: 5 NORTH 15:59
PROVIDERS: ADMIT Family Medicine; ATTEND Family Medicine
PROC: 30233N1 Transfusion of Nonautologous Red Blood Cells into Peripheral Vein, Percutaneous Approach (ICD-10-PCS; 2018-08-04)
PROC: 30233R1 Transfusion of Nonautologous Platelets into Peripheral Vein, Percutaneous Approach (ICD-10-PCS; principal; 2018-08-06)
DX: K70.31 Alcoholic cirrhosis of liver with ascites (principal); E43 Unspecified severe protein-calorie malnutrition; D61.818 Other pancytopenia; I13.0 Hypertensive heart and chronic kidney disease with heart failure and stage 1 through stage 4 chronic kidney disease, or unspecified chronic kidney disease; D68.9 Coagulation defect, unspecified; D63.8 Anemia in other chronic diseases classified elsewhere; E11.42 Type 2 diabetes mellitus with diabetic polyneuropathy; N18.9 Chronic kidney disease, unspecified; I50.9 Heart failure, unspecified; D73.1 Hypersplenism; E11.22 Type 2 diabetes mellitus with diabetic chronic kidney disease; E78.5 Hyperlipidemia, unspecified; F10.20 Alcohol dependence, uncomplicated; F17.210 Nicotine dependence, cigarettes, uncomplicated; M19.90 Unspecified osteoarthritis, unspecified site; Z96.659 Presence of unspecified artificial knee joint; I25.10 Atherosclerotic heart disease of native coronary artery without angina pectoris; J45.909 Unspecified asthma, uncomplicated; K21.9 Gastro-esophageal reflux disease without esophagitis; K31.89 Other diseases of stomach and duodenum; Z79.899 Other long term (current) drug therapy; Z82.3 Family history of stroke; Z83.3 Family history of diabetes mellitus; Z87.11 Personal history of peptic ulcer disease; Z95.1 Presence of aortocoronary bypass graft; Z68.23 Body mass index [BMI] 23.0-23.9, adult
CPT/HCPCS: 36415; 76700; 80048; 80053; 82274; 82607; 82728; 82962; 83036; 83540; 83550; 85025; 85027; 85045; 85610; 86850; 86900; 86901; 86902; 86922; C9113; J0360; J1815; J2270; J2405; J2765; J7042; P9016; P9035

== ENCOUNTER → 2018-08-04 | Outpatient (CLI) | payer SELFPAY ==
[2018-04-06 21:17] VITALS: BP 144/71
[~2018-08-04] MED LIST changes: +AMOX1TAB61 PO; +FERR325T14 PO; +FLUC200T4; +FOLI1TAB16 PO; +FURO20TA3 PO; -GABA-586 PO; +GABA300C18 PO; +GABA600T7 PO; +HYDR-3164 PO; +INSU100C4 SQ; +INSU100I13 SQ; +INSU100I27 SQ; +INSU100I32; +LACT1CAP6 PO; +LACT20SO PO; +LEVO500T59 PO; +MAGN400T22 PO; +METH750T2 PO; +OMEP20TA8 PO; +ONDA4TAB7 PO; +OSEL75CA PO; +OXYC1TAB22 PO; +OXYC5CAP PO; +PANT20TA2 PO; +PANT40TA5 PO; +POLY1POW MC; +POTA10TA12 PO; -RIFA550T PO; +RIFA550T4 PO; +SPIR25TA PO; +SPIR25TA5 PO; -SPIR50TA2 PO; +SPIR50TA4 PO; +SULF1TAB24 PO; +TRAZ-86 PO; -TRAZ100T12 PO
[2018-08-04 12:01] LABS: BASO % 1 % (0-3); EOS % 1 % (0-3); LYMPH # 0.5 x10^3/uL (1.0-4.8); LYMPH % 14 % (24-48); MEAN CORPUSCULAR HEMOGLOBIN 24 pg (25-35); MEAN CORPUSCULAR HGB CONC 31 g/dL (31-37); MEAN CORPUSCULAR VOLUME 78 fL (79-100); MONO # 0.3 x10^3/uL (0.0-1.1); MONO % 9 % (0-9); NEUT # 2.7 x10^3uL (1.8-7.7); NEUT % 75 % (31-73); WHITE BLOOD COUNT 3.7 x10^3/uL (4.0-11.0)
[2018-08-04 12:24] LABS: ALBUMIN 1.7 g/dL (3.4-5.0); ALBUMIN/GLOBULIN RATIO 0.4 (1.0-1.7); CALCIUM 7.3 mg/dL (8.5-10.1); CREATININE 1.3 mg/dL (0.7-1.3); POTASSIUM 4.3 mmol/L (3.5-5.1); TOTAL BILIRUBIN 1.1 mg/dL (0.2-1.0); TOTAL PROTEIN 5.6 g/dL (6.4-8.2)
[2018-08-04 14:48] LABS: HEMATOCRIT 13.2 % (39.0-53.0); HEMOGLOBIN 4.1 g/dL (13.0-17.5); PLATELET COUNT 13 x10^3/uL (140-400)
== END | disposition home or self-care (01) ==
LOC: LAB 11:26
PROVIDERS: ATTEND Family Medicine
DX: K70.31 Alcoholic cirrhosis of liver with ascites (principal); D64.9 Anemia, unspecified
CPT/HCPCS: 36415; 80053; 85025

== ENCOUNTER → 2018-09-25 | Outpatient (CLI) | payer SELFPAY ==
[~2018-09-25] MED LIST changes: +FERR325T14 PO; +INSU100I13 SQ; -PANT40TA5 PO; +PANT40TA77 PO; +POTA10TA12 PO
== END | disposition home or self-care (01) ==
LOC: LAB 16:11
PROVIDERS: ATTEND Family Medicine
DX: D64.9 Anemia, unspecified (principal)
CPT/HCPCS: 36415; 85018

== ENCOUNTER 2018-11-16 09:24 | Inpatient (IN) | payer MEDICARE ==
[~2018-11-16] VITALS: Ht 165.1 cm; Wt 81.9 kg
[2018-11-16] VITALS (8 sets, daily range): BP systolic 138–152; BP diastolic 61–75
[~2018-11-16 09:24] MED LIST changes: +AMLO10TA8 PO
[2018-11-16] MEDS ORDERED: MORPHINE SULFATE 4 MG/ML VIAL. IV ONE (09:45)
[2018-11-16] MEDS ORDERED: ONDANSETRON PF 4 MG/2 ML VIAL. IV ONE (09:45)
--- NOTE | 2018-11-16 09:55 | PHYS DOC ---
Past Medical History Past Medical History: Anemia, Diabetes-Type II, GERD, High Cholesterol, Hypertension, Liver Disease, Stroke Additional Past Medical Histor: 7 Bld.transfusions, trouble sleeping, CIRRHOSIS Past Surgical History: Other Additional Past Surgical Histo: TIPS Alcohol Use: Heavy Drug Use: None Adult General Chief Complaint Chief Complaint: LOWER EXTREMITY EDEMA HPI HPI Patient is a 52 year old male that presents to the emergency room for multiple complaints. The patient states bilateral lower leg extremity swelling has been ongoing for week, also states his stomach is becoming more and more swollen, and that he has been short of breath. Patient was recently admitted to the hospital and discharged on November 09 hepatic encephalopathy. Rates his pain as 10 out of 10 in severity and sharp and throbbing in his legs. Has not taking medicine before he came. Was scheduled to see Dr. Barrett this morning at 11, however he states that he was unable to get a ride there. Review of Systems Review of Systems Constitutional: Denies fever or chills [] Eyes: Denies change in visual acuity, redness, or eye pain [] HENT: Denies nasal congestion or sore throat [] Respiratory: Denies cough but reports mild shortness of breath [] Cardiovascular: No additional information not addressed in HPI [] GI: Denies abdominal pain but reports swelling Denies nausea, vomiting, bloody stools or diarrhea [] : Denies dysuria or hematuria [] Musculoskeletal: Denies back pain or joint pain [] Integument: Reports bilateral lower extremity swelling. Neurologic: Denies headache, focal weakness or sensory changes [] Endocrine: Denies polyuria or polydipsia [] Complete systems were reviewed and found to be within normal limits, except as documented in this note. Current Medications Current Medications Current Medications Medications (Trade) Dose Ordered Sig/Kodak Start Time Stop Time Status Last Admin Dose Admin Magnesium Sulfate/ Dextrose 100 ml @ 100 mls/hr 1X ONCE 11/16/18 10:45 11/16/18 11:44 Morphine Sulfate (Morphine Sulfate) 4 mg 1X ONCE 11/16/18 09:45 11/16/18 09:50 DC 11/16/18 10:35 4 MG Ondansetron HCl (Zofran) 4 mg 1X ONCE 11/16/18 09:45 11/16/18 09:52 DC 11/16/18 10:35 4 MG Allergies Allergies Allergies Coded Allergies Type Severity Reaction Last Updated Verified No Known Drug Allergies 04/06/18 No Physical Exam Physical Exam Constitutional: Well developed, well nourished, no acute distress, non-toxic appearance. [] HENT: Normocephalic, atraumatic, bilateral external ears normal, oropharynx moist, no oral exudates, nose normal. [] Eyes: PERRLA, EOMI, conjunctiva normal, no discharge. [] Neck: Normal range of motion, no tenderness, supple, no stridor. [] Cardiovascular:Heart rate regular rhythm, no murmur [] Lungs & Thorax: Bilateral breath sounds clear to auscultation [] Abdomen: Bowel sounds normal, soft, no tenderness, no masses, no pulsatile masses. [] Skin: Warm, dry, no erythema, no rash. [] Back: No tenderness, no CVA tenderness. [] Extremities: Tenderness and pitting edema (3+) bilateral with weeping. Neurologic: Alert and oriented X 3, normal motor function, normal sensory function, no focal deficits noted. [] Psychologic: Affect normal, judgement normal, mood normal. [] Current Patient Data Vital Signs Vital Signs Date Time Temp Pulse Resp B/P (MAP) Pulse Ox O2 Delivery O2 Flow Rate FiO2 11/16/18 10:35 18 95 Room Air 11/16/18 09:25 97.7 99 167/77 (107) 97.7 Lab Values Laboratory Tests Test 11/16/18 09:51 White Blood Count 5.3 x10^3/uL (4.0-11.0) Red Blood Count 2.42 x10^6/uL (4.30-5.70) L Hemoglobin 6.7 g/dL (13.0-17.5) *L Hematocrit 19.6 % (39.0-53.0) *L Mean Corpuscular Volume 81 fL (79-100) Mean Corpuscular Hemoglobin 28 pg (25-35) Mean Corpuscular Hemoglobin Concent 34 g/dL (31-37) Red Cell Distribution Width 15.3 % (11.5-14.5) H Platelet Count 44 x10^3/uL (140-400) L Neutrophils (%) (Auto) 78 % (31-73) H Lymphocytes (%) (Auto) 8 % (24-48) L Monocytes (%) (Auto) 10 % (0-9) H Eosinophils (%) (Auto) 3 % (0-3) Basophils (%) (Auto) 1 % (0-3) Neutrophils # (Auto) 4.1 x10^3/uL (1.8-7.7) Lymphocytes # (Auto) 0.4 x10^3/uL (1.0-4.8) L Monocytes # (Auto) 0.6 x10^3/uL (0.0-1.1) Eosinophils # (Auto) 0.2 x10^3/uL (0.0-0.7) Basophils # (Auto) 0.0 x10^3/uL (0.0-0.2) Sodium Level 133 mmol/L (136-145) L Potassium Level 4.2 mmol/L (3.5-5.1) Chloride Level 103 mmol/L (98-107) Carbon Dioxide Level 17 mmol/L (21-32) L Anion Gap 13 (6-14) Blood Urea Nitrogen 31 mg/dL (8-26) H Creatinine 2.3 mg/dL (0.7-1.3) H Estimated GFR (Cockcroft-Gault) 30.0 BUN/Creatinine Ratio 13 (6-20) Glucose Level 128 mg/dL (70-99) H Lactic Acid Level 1.8 mmol/L (0.4-2.0) Calcium Level 8.0 mg/dL (8.5-10.1) L Magnesium Level 1.6 mg/dL (1.8-2.4) L Total Bilirubin 1.2 mg/dL (0.2-1.0) H Aspartate Amino Transferase (AST) 45 U/L (15-37) H Alanine Aminotransferase (ALT) 16 U/L (16-63) Alkaline Phosphatase 104 U/L (46-116) Ammonia 49 mcmol/L (11-34) H Troponin I Quantitative 0.027 ng/mL (0.000-0.055) KN-Ith-Q-Type Natriuretic Peptide 698 pg/mL (0-124) H Total Protein 6.0 g/dL (6.4-8.2) L Albumin 2.1 g/dL (3.4-5.0) L Albumin/Globulin Ratio 0.5 (1.0-1.7) L Laboratory Tests 11/16/18 09:51 Laboratory Tests 11/16/18 09:51 EKG EKG EKG interpreted by Dr. Trammell Sinus rhythm with rate of 98, No STEMI, leftward axis. Radiology/Procedures Radiology/Procedures [] Course & Med Decision Making Course & Med Decision Making Pertinent Labs and Imaging studies reviewed. (See chart for details) Will get Chest x-ray, labs, and give supportive care. Labs shows BNP of 698, Anemia of 6.7, Magnesium of 1.6, Calcium of 1.8, Creatinine of 2.3 (last creatinine was 1.8). Will order 1 g of Mag, and 1 Unit of RBC. Discussed with Dr. Barrett at 10:51 and he accepted admission to hospital. Dragon Disclaimer Dragon Disclaimer This electronic medical record was generated, in whole or in part, using a voice recognition dictation system. Departure Departure Impression: Primary Impression: Anemia Additional Impressions: Hyperammonemia TEJAS (acute kidney injury) Hypomagnesemia CHF exacerbation Disposition: ADMITTED INPATIENT Admitting Physician: Shivam Barrett Condition: STABLE Referrals: Pedro BARRETT MD (PCP) Problem Qualifiers Additional Impressions: CHF exacerbation Heart failure type: unspecified Qualified Codes: I50.9 - Heart failure, unspecified JENNIFER PEÑA APRN Nov 16, 2018 09:55
[2018-11-16 10:04] LABS: BASO % 1 % (0-3); EOS # 0.2 x10^3/uL (0.0-0.7); EOS % 3 % (0-3); LYMPH # 0.4 x10^3/uL (1.0-4.8); LYMPH % 8 % (24-48); MEAN CORPUSCULAR HEMOGLOBIN 28 pg (25-35); MEAN CORPUSCULAR HGB CONC 34 g/dL (31-37); MEAN CORPUSCULAR VOLUME 81 fL (79-100); MONO # 0.6 x10^3/uL (0.0-1.1); MONO % 10 % (0-9); NEUT # 4.1 x10^3/uL (1.8-7.7); NEUT % 78 % (31-73); PLATELET COUNT 44 x10^3/uL (140-400); RED BLOOD COUNT 2.42 x10^6/uL (4.30-5.70); RED CELL DISTRIBUTION WIDTH 15.3 % (11.5-14.5); WHITE BLOOD COUNT 5.3 x10^3/uL (4.0-11.0)
[2018-11-16 10:08] LABS: HEMATOCRIT 19.6 % (39.0-53.0); HEMOGLOBIN 6.7 g/dL (13.0-17.5)
[2018-11-16 10:15] LABS: CREATININE 2.3 mg/dL (0.7-1.3); POTASSIUM 4.2 mmol/L (3.5-5.1)
--- NOTE | 2018-11-16 10:20 | RAD ---
CHEST PA LATERAL History: Shortness of breath Comparison: November 09, 2018 Findings: Mild cardiomegaly, unchanged. Vascular engorgement. No consolidation or pleural effusion. Elevation of the right hemidiaphragm, unchanged. Postop changes overlying the upper abdomen. Impression: 1. Mild cardiomegaly with vascular engorgement. No overt pulmonary edema. Electronically signed by: Gerardo Lloyd DO (11/16/2018 10:16 AM) [facility]
[2018-11-16 10:21] LABS: ALBUMIN 2.1 g/dL (3.4-5.0); ALBUMIN/GLOBULIN RATIO 0.5 (1.0-1.7); MAGNESIUM 1.6 mg/dL (1.8-2.4); TOTAL BILIRUBIN 1.2 mg/dL (0.2-1.0)
[2018-11-16] MEDS ORDERED: MAGNESIUM SULFATE 1GM 100 ML IV ONE (10:45)
[2018-11-16] MEDS ORDERED: ONDANSETRON PF 4 MG/2 ML VIAL. IV PRN (11:00)
--- NOTE | 2018-11-16 11:06 | EKG ---
[facility] [address] [place] [address] Test Date: 2018-11-16 Test Time: 09:40:09 Pat Name: DARIO RYAN Department: Room: Gender: M Cost Report Clerk: : 1965 Requested By: JENNIFER PEÑA Order Number: [id number] Reading MD: Measurements Intervals [place] Rate: 98 P: 90 RI: 138 QRS: -19 QRSD: 90 T: 52 QT: 364 QTc: 467 Interpretive Statements SINUS RHYTHM LEFTWARD AXIS NO SPECIFIC ECG ABNORMALITIES RI6.01 Unconfirmed report No previous ECG available for comparison
[2018-11-16] MEDS: IV NORMAL SALINE 1000ML BAG 1,000 ML IV SCH (11:08)
[2018-11-16 11:23] LABS: BILIRUBIN,URINE NEGATIVE (NEG); CLARITY,URINE CLOUDY; COLOR,URINE YELLOW; NITRITE,URINE NEGATIVE (NEG); PH,URINE 5.5; PROTEIN,URINE 30 mg/dL (NEG-TRACE); UROBILINOGEN,URINE 0.2 mg/dL (0.2 mg/dL)
[2018-11-16 11:30] LABS: RBC,URINE >40 /HPF (0-2)
[2018-11-16 11:31] LABS: BACTERIA,URINE FEW /HPF (0-FEW)
[2018-11-16] MEDS ORDERED: POTA10TA12 PO (13:42)
[2018-11-16] MEDS ORDERED: TRAZ-86 PO (13:42)
[2018-11-16] MEDS ORDERED: ESOM40CA PO (13:42)
[2018-11-16] MEDS: MORPHINE SULFATE 2 MG/ML VIAL. IV PRN ×2 (14:58→21:57)
[2018-11-16] MEDS ORDERED: BUMETANIDE 1 MG/4 ML VIAL. IV ONE (17:15)
--- NOTE | 2018-11-16 17:25 | PDOC1 ---
History and Physical Date of Admission Date of Admission 11/16/18 Identification/Chief Complaint Chief Complaint not feeling well Source Source: Patient History of Present Illness History of Present Illness He went to ER this am as was not feeling well, he was unable to eat breakfast and did not take his routine meds this am, in ER he was noted to have significant edema and ascites and was acutely anemic but he has not noticed any acute blood loss. He has cirrhosis and was just admitted for encephalopathy but his ammonia level is normal and his ProBnp is minimally elevated, his CXR shows vascular congestion. He is being transfused Past Medical History Cardiovascular: CAD, CHF, HTN, Hyperlipidemia Pulmonary: Asthma CENTRAL NERVOUS SYSTEM: Periperal neuropathy GI: GERD, GI bleed, Gastritis, Peptic Ulcer disease Heme/Onc: Iron deficiency Anemia Hepatobiliary: Cirrhosis Psych: No pertinent hx Rheumatologic: No pertinent hx Infectious disease: No pertinent hx Renal/: No pertinent hx Endocrine: Diabetes Past Surgical History Past Surgical History: CABG, Cataract Removal, Total knee replacement, Other Family History Family History: Diabetes, Stroke Social History ALCOHOL: heavy Drugs: Marijuana Current Problem List Problem List Problems Medical Problems: (1) TEJAS (acute kidney injury) Status: Acute (2) Anemia Status: Acute (3) CHF exacerbation Status: Acute (4) Hyperammonemia Status: Acute (5) Hypomagnesemia Status: Acute Current Medications Current Medications Current Medications Medications (Trade) Dose Ordered Sig/Kodak Start Time Stop Time Status Last Admin Dose Admin Amlodipine Besylate (Norvasc) 10 mg DAILY 11/17/18 09:00 Ferrous Sulfate (Feosol) 325 mg DAILY 11/17/18 09:00 Folic Acid (Folic Acid) 1 mg DAILY 11/17/18 09:00 Lactulose (Lactulose) 20 gm DAILY 11/17/18 09:00 UNV Magnesium Sulfate/ Dextrose 100 ml @ 100 mls/hr 1X ONCE 11/16/18 10:45 11/16/18 11:44 DC 11/16/18 10:58 100 MLS/HR Morphine Sulfate (Morphine Sulfate) 2 mg PRN Q2HR PRN 11/16/18 11:00 11/17/18 10:59 11/16/18 14:59 2 MG Non-Formulary Medication (Esomeprazole Magnesium (Nexium Capsule)) 1 cap DAILY 11/17/18 09:00 UNV Non-Formulary Medication (Gabapentin ) 300 mg TID 11/16/18 21:00 UNV Non-Formulary Medication (Pantoprazole Sodium (Protonix)) 40 mg DAILY 11/17/18 09:00 UNV Ondansetron HCl (Zofran) 4 mg PRN Q8HRS PRN 11/16/18 11:00 11/17/18 10:59 Potassium Chloride (Klor-Con) 10 meq DAILY 11/17/18 09:00 UNV Sodium Chloride 1,000 ml @ 75 mls/hr [id number] 11/16/18 10:54 11/17/18 10:53 11/16/18 11:09 75 MLS/HR Torsemide (Demadex) 20 mg DAILY 11/17/18 09:00 UNV Trazodone HCl (Desyrel) 100 mg QHS 11/16/18 21:00 UNV Allergies Allergies Allergies Coded Allergies Type Severity Reaction Last Updated Verified No Known Drug Allergies 04/06/18 No ROS Review of System CONSTITUTIONAL: No fever or chills EYES: No recent changes SKIN: No rash or itching CARDIOVASCULAR: No chest pain, syncope, palpitations, or edema RESPIRATORY: No SOB or cough GASTROINTESTINAL: epigastric pain prevented him from eating breakfast this am NEUROLOGICAL: No headaches or weakness ENDOCRINE: No cold or heat intolerance GENITOURINARY: No urgency or frequency of urination MUSCULOSKELETAL: No back pain or joint pain LYMPHATICS: worsened lower extremity lymphedema PSYCHIATRIC: No anxiety or depression Physical Exam Physical Exam GEN.: No apparent distress. Alert and oriented. HEENT: Head is normocephalic, atraumatic NECK: Supple. LUNGS: Clear to auscultation. HEART: RRR, S1, S2 present. Peripheral pulses intact ABDOMEN: Soft, nontender. Positive bowel sounds, ascites present. EXTREMITIES: Without any cyanosis 2-3+ edema of lower extremities into thighs. NEUROLOGIC: Normal speech, normal upper extremity tone PSYCHIATRIC: Normal affect, normal mood. SKIN: No ulcerations Vitals Vitals Vital Signs Date Time Temp Pulse Resp B/P (MAP) Pulse Ox O2 Delivery O2 Flow Rate FiO2 11/16/18 16:32 96.0 99 17 149/71 96.0 11/16/18 14:59 Room Air 11/16/18 12:35 96 Labs Labs Laboratory Tests Test 11/16/18 09:51 11/16/18 11:15 11/16/18 16:34 White Blood Count 5.3 x10^3/uL (4.0-11.0) Red Blood Count 2.42 x10^6/uL (4.30-5.70) Hemoglobin 6.7 g/dL (13.0-17.5) Hematocrit 19.6 % (39.0-53.0) Mean Corpuscular Volume 81 fL (79-100) Mean Corpuscular Hemoglobin 28 pg (25-35) Mean Corpuscular Hemoglobin Concent 34 g/dL (31-37) Red Cell Distribution Width 15.3 % (11.5-14.5) Platelet Count 44 x10^3/uL (140-400) Neutrophils (%) (Auto) 78 % (31-73) Lymphocytes (%) (Auto) 8 % (24-48) Monocytes (%) (Auto) 10 % (0-9) Eosinophils (%) (Auto) 3 % (0-3) Basophils (%) (Auto) 1 % (0-3) Neutrophils # (Auto) 4.1 x10^3/uL (1.8-7.7) Lymphocytes # (Auto) 0.4 x10^3/uL (1.0-4.8) Monocytes # (Auto) 0.6 x10^3/uL (0.0-1.1) Eosinophils # (Auto) 0.2 x10^3/uL (0.0-0.7) Basophils # (Auto) 0.0 x10^3/uL (0.0-0.2) Sodium Level 133 mmol/L (136-145) Potassium Level 4.2 mmol/L (3.5-5.1) Chloride Level 103 mmol/L (98-107) Carbon Dioxide Level 17 mmol/L (21-32) Anion Gap 13 (6-14) Blood Urea Nitrogen 31 mg/dL (8-26) Creatinine 2.3 mg/dL (0.7-1.3) Estimated GFR (Cockcroft-Gault) 30.0 BUN/Creatinine Ratio 13 (6-20) Glucose Level 128 mg/dL (70-99) Lactic Acid Level 1.8 mmol/L (0.4-2.0) Calcium Level 8.0 mg/dL (8.5-10.1) Magnesium Level 1.6 mg/dL (1.8-2.4) Total Bilirubin 1.2 mg/dL (0.2-1.0) Aspartate Amino Transf (AST/SGOT) 45 U/L (15-37) Alanine Aminotransferase (ALT/SGPT) 16 U/L (16-63) Alkaline Phosphatase 104 U/L (46-116) Ammonia 49 mcmol/L (11-34) Troponin I Quantitative 0.027 ng/mL (0.000-0.055) FC-Hnr-S-Type Natriuretic Peptide 698 pg/mL (0-124) Total Protein 6.0 g/dL (6.4-8.2) Albumin 2.1 g/dL (3.4-5.0) Albumin/Globulin Ratio 0.5 (1.0-1.7) Urine Collection Type Unknown Urine Color Yellow Urine Clarity Cloudy Urine pH 5.5 Urine Specific [place] 1.010 Urine Protein 30 mg/dL (NEG-TRACE) Urine Glucose (UA) Negative mg/dL (NEG) Urine Ketones (Stick) Negative mg/dL (NEG) Urine Blood Large (NEG) Urine Nitrite Negative (NEG) Urine Bilirubin Negative (NEG) Urine Urobilinogen Dipstick 0.2 mg/dL (0.2 mg/dL) Urine Leukocyte Esterase Negative (NEG) Urine RBC >40 /HPF (0-2) Urine WBC 1-4 /HPF (0-4) Urine Transitional Epithelial Cells Occ /LPF Urine Renal Epithelial Cells Occ /LPF Urine Bacteria Few /HPF (0-FEW) Glucose (Fingerstick) 177 mg/dL (70-99) Laboratory Tests Test 11/16/18 09:51 11/16/18 11:15 11/16/18 16:34 White Blood Count 5.3 x10^3/uL (4.0-11.0) Red Blood Count 2.42 x10^6/uL (4.30-5.70) Hemoglobin 6.7 g/dL (13.0-17.5) Hematocrit 19.6 % (39.0-53.0) Mean Corpuscular Volume 81 fL (79-100) Mean Corpuscular Hemoglobin 28 pg (25-35) Mean Corpuscular Hemoglobin Concent 34 g/dL (31-37) Red Cell Distribution Width 15.3 % (11.5-14.5) Platelet Count 44 x10^3/uL (140-400) Neutrophils (%) (Auto) 78 % (31-73) Lymphocytes (%) (Auto) 8 % (24-48) Monocytes (%) (Auto) 10 % (0-9) Eosinophils (%) (Auto) 3 % (0-3) Basophils (%) (Auto) 1 % (0-3) Neutrophils # (Auto) 4.1 x10^3/uL (1.8-7.7) Lymphocytes # (Auto) 0.4 x10^3/uL (1.0-4.8) Monocytes # (Auto) 0.6 x10^3/uL (0.0-1.1) Eosinophils # (Auto) 0.2 x10^3/uL (0.0-0.7) Basophils # (Auto) 0.0 x10^3/uL (0.0-0.2) Sodium Level 133 mmol/L (136-145) Potassium Level 4.2 mmol/L (3.5-5.1) Chloride Level 103 mmol/L (98-107) Carbon Dioxide Level 17 mmol/L (21-32) Anion Gap 13 (6-14) Blood Urea Nitrogen 31 mg/dL (8-26) Creatinine 2.3 mg/dL (0.7-1.3) Estimated GFR (Cockcroft-Gault) 30.0 BUN/Creatinine Ratio 13 (6-20) Glucose Level 128 mg/dL (70-99) Lactic Acid Level 1.8 mmol/L (0.4-2.0) Calcium Level 8.0 mg/dL (8.5-10.1) Magnesium Level 1.6 mg/dL (1.8-2.4) Total Bilirubin 1.2 mg/dL (0.2-1.0) Aspartate Amino Transf (AST/SGOT) 45 U/L (15-37) Alanine Aminotransferase (ALT/SGPT) 16 U/L (16-63) Alkaline Phosphatase 104 U/L (46-116) Ammonia 49 mcmol/L (11-34) Troponin I Quantitative 0.027 ng/mL (0.000-0.055) FO-Law-Q-Type Natriuretic Peptide 698 pg/mL (0-124) Total Protein 6.0 g/dL (6.4-8.2) Albumin 2.1 g/dL (3.4-5.0) Albumin/Globulin Ratio 0.5 (1.0-1.7) Urine Collection Type Unknown Urine Color Yellow Urine Clarity Cloudy Urine pH 5.5 Urine Specific [place] 1.010 Urine Protein 30 mg/dL (NEG-TRACE) Urine Glucose (UA) Negative mg/dL (NEG) Urine Ketones (Stick) Negative mg/dL (NEG) Urine Blood Large (NEG) Urine Nitrite Negative (NEG) Urine Bilirubin Negative (NEG) Urine Urobilinogen Dipstick 0.2 mg/dL (0.2 mg/dL) Urine Leukocyte Esterase Negative (NEG) Urine RBC >40 /HPF (0-2) Urine WBC 1-4 /HPF (0-4) Urine Transitional Epithelial Cells Occ /LPF Urine Renal Epithelial Cells Occ /LPF Urine Bacteria Few /HPF (0-FEW) Glucose (Fingerstick) 177 mg/dL (70-99) Images Images CHEST PA LATERAL History: Shortness of breath Comparison: November 09, 2018 Findings: Mild cardiomegaly, unchanged. Vascular engorgement. No consolidation or pleural effusion. Elevation of the right hemidiaphragm, unchanged. Postop changes overlying the upper abdomen. Impression: 1. Mild cardiomegaly with vascular engorgement. No overt pulmonary edema. VTE Prophylaxis Ordered VTE Prophylaxis Devices: Contraindicated VTE Pharmacological Prophylaxi: No Assessment/Plan Assessment/Plan acute on chronic diastolic heart failure - diurese cirrhosis - no evidence of acutley bleeding acute anemia - likely gastritis - transfuse, monitor Pedro BARRETT MD Nov 16, 2018 17:25
[2018-11-16] MEDS: traZODone 100 MG TABLET. PO SCH (21:54)
[2018-11-16] MEDS: GABAPENTIN 300 MG CAPSULE. PO SCH (21:55)
[2018-11-17 03:35] VITALS: BP 145/68
[2018-11-17] MEDS: MORPHINE SULFATE 2 MG/ML VIAL. IV PRN ×3 (04:03→20:47)
[2018-11-17] MEDS: IV NORMAL SALINE 1000ML BAG 1,000 ML IV SCH (04:03)
[2018-11-17 07:00] VITALS: BP 139/77
[2018-11-17 07:21] LABS: BASO % 1 % (0-3); EOS # 0.1 x10^3/uL (0.0-0.7); EOS % 5 % (0-3); HEMOGLOBIN 7.1 g/dL (13.0-17.5); LYMPH # 0.4 x10^3/uL (1.0-4.8); LYMPH % 13 % (24-48); MEAN CORPUSCULAR HEMOGLOBIN 28 pg (25-35); MEAN CORPUSCULAR HGB CONC 34 g/dL (31-37); MEAN CORPUSCULAR VOLUME 82 fL (79-100); MONO # 0.4 x10^3/uL (0.0-1.1); MONO % 13 % (0-9); NEUT # 2.1 x10^3/uL (1.8-7.7); NEUT % 68 % (31-73); PLATELET COUNT 31 x10^3/uL (140-400); RED BLOOD COUNT 2.54 x10^6/uL (4.30-5.70); RED CELL DISTRIBUTION WIDTH 15.3 % (11.5-14.5); WHITE BLOOD COUNT 3.1 x10^3/uL (4.0-11.0)
[2018-11-17 07:28] LABS: HEMATOCRIT 20.8 % (39.0-53.0)
[2018-11-17 07:36] LABS: CALCIUM 7.8 mg/dL (8.5-10.1); CREATININE 2.1 mg/dL (0.7-1.3); GFR 33.3; POTASSIUM 3.9 mmol/L (3.5-5.1)
[2018-11-17] MEDS: TORSEMIDE 20 MG TABLET. PO SCH (08:59)
[2018-11-17] MEDS: FERROUS SULFATE 325 MG TABLET. PO SCH (08:59)
[2018-11-17] MEDS: PANTOPRAZOLE 40 MG TABLET.DR. PO SCH (08:59)
[2018-11-17] MEDS: FOLIC ACID 1 MG TABLET. PO SCH (08:59)
[2018-11-17] MEDS: LACTULOSE 20 GM/30 ML SOLUTION. PO SCH (08:59)
[2018-11-17] MEDS: GABAPENTIN 300 MG CAPSULE. PO SCH ×3 (08:59→20:47)
[2018-11-17] MEDS ORDERED: NON FORMULARY ITEM (Pantoprazole Sodium (Protonix) 40 MG) PO SCH (09:00)
[2018-11-17] MEDS: amLODIPine BESYLATE 10 MG TABLET PO SCH (09:00)
[2018-11-17] MEDS ORDERED: POTASSIUM CHLORIDE 10 MEQ TABLET.ER. PO SCH (09:00)
[2018-11-17] MEDS: rifAXIMin 550 MG TABLET PO SCH ×2 (10:02→20:47)
[2018-11-17] MEDS: LISINOPRIL 5 MG TABLET. PO SCH (10:02)
[2018-11-17 11:00] VITALS: BP 153/72
[2018-11-17 12:05] LABS: FECAL OB PT NEGATIVE (NEG)
[2018-11-17] MEDS ORDERED: IRON SUCROSE COMPLEX 200 MG in IV NORMAL SALINE 100ML 100 ML IV ONE (14:00)
[2018-11-17 15:00] VITALS: BP 164/90
--- NOTE | 2018-11-17 15:43 | NUR ---
SW consulted for dc planning. Chart reviewed and d/w RN. Pt was recently discharged home. Rehab screen recommends PT/OT order. Will continue to follow pt.
--- NOTE | 2018-11-17 16:34 | PDOC ---
PROGRESS NOTES Subjective He has been sleeping most of the day, not much appetite, Hgb just barely improved after transfusion, no obvious blood loss though, edema not much better, he is still wearing bandanas around his ankles which he was wearing prior to admission to catch the fluid dripping down his leg, lab shows he is iron deficient Objective Afebrile General: drowsy, A&O Heart: RRR Lungs: bibasilar rales Abd: ascites present but non tender Ext: anasarca type edema, calf tenderness Hgb: 7.1 Creat: 2.1 Vital Signs Vital Signs Date Time Temp Pulse Resp B/P (MAP) Pulse Ox O2 Delivery O2 Flow Rate FiO2 11/17/18 15:00 97.4 98 20 164/90 (114) 94 97.4 11/17/18 11:00 Room Air I & O Intake and Output 11/17/18 06:59 Intake Total 1180 ml Output Total 1200 ml Balance -20 ml Intake Oral 400 ml IV Total 100 ml Blood Product IV Normal Saline Flush 680 ml Output Urine Total 1200 ml # Voids 2 # Bowel Movements 1 Assessment and Plan (1) TEJAS (acute kidney injury) - recieved IVF - stable, monitor (2) Anemia - iron deficient, received 1 unit of blood and Venofer, monitor, await fecal occult blood testing (3) cirrhosis with ascites and lymphedema- s/p TIPS (4) hypoproteinemia - appetite currently poor, encouraged to eat meals - likely hepatorenal syndrome Pedro BARRETT MD Nov 17, 2018 16:34
[2018-11-17] MEDS ORDERED: BUMETANIDE 2.5 MG/10 ML VIAL. IV ONE (17:00)
--- NOTE | 2018-11-17 17:30 | RAD ---
EXAM: Bilateral lower extremity venous Doppler sonogram. HISTORY: Pain and swelling. TECHNIQUE: Baer scale and color Doppler sonographic evaluation of the bilateral lower extremity veins with spectral waveform analysis was performed. FINDINGS: There is normal color flow, normal compressibility and there are normal spectral waveforms in the common femoral, superficial femoral, popliteal, posterior tibial and greater saphenous veins. IMPRESSION: No Doppler evidence of lower extremity deep venous thrombosis. Electronically signed by: Kassy Delgado MD (11/17/2018 5:27 PM) [id number]
[2018-11-17 19:00] VITALS: BP 156/86
[2018-11-17] MEDS: traZODone 100 MG TABLET. PO SCH (20:47)
[2018-11-17 23:03] VITALS: BP 132/65
[2018-11-18] MEDS: MORPHINE SULFATE 2 MG/ML VIAL. IV PRN ×6 (00:39→19:24)
[2018-11-18 03:12] VITALS: BP 156/71
[2018-11-18 04:40] LABS: BASO % 1 % (0-3); EOS # 0.1 x10^3/uL (0.0-0.7); EOS % 4 % (0-3); HEMOGLOBIN 7.1 g/dL (13.0-17.5); LYMPH # 0.4 x10^3/uL (1.0-4.8); LYMPH % 14 % (24-48); MEAN CORPUSCULAR HEMOGLOBIN 28 pg (25-35); MEAN CORPUSCULAR HGB CONC 34 g/dL (31-37); MEAN CORPUSCULAR VOLUME 82 fL (79-100); MONO # 0.3 x10^3/uL (0.0-1.1); MONO % 11 % (0-9); NEUT # 1.8 x10^3/uL (1.8-7.7); NEUT % 69 % (31-73); PLATELET COUNT 33 x10^3/uL (140-400); RED BLOOD COUNT 2.55 x10^6/uL (4.30-5.70); RED CELL DISTRIBUTION WIDTH 15.1 % (11.5-14.5); WHITE BLOOD COUNT 2.7 x10^3/uL (4.0-11.0)
[2018-11-18 04:55] LABS: CALCIUM 7.8 mg/dL (8.5-10.1); CREATININE 1.8 mg/dL (0.7-1.3); GFR 39.8; POTASSIUM 3.5 mmol/L (3.5-5.1)
[2018-11-18 05:17] LABS: HEMATOCRIT 20.8 % (39.0-53.0)
[2018-11-18 07:00] VITALS: BP 148/69
[2018-11-18] MEDS: LISINOPRIL 5 MG TABLET. PO SCH (08:30)
[2018-11-18] MEDS: FERROUS SULFATE 325 MG TABLET. PO SCH (08:30)
[2018-11-18] MEDS: FOLIC ACID 1 MG TABLET. PO SCH (08:30)
[2018-11-18] MEDS: LACTULOSE 20 GM/30 ML SOLUTION. PO SCH (08:30)
[2018-11-18] MEDS: PANTOPRAZOLE 40 MG TABLET.DR. PO SCH (08:30)
[2018-11-18] MEDS: rifAXIMin 550 MG TABLET PO SCH ×2 (08:31→21:30)
[2018-11-18] MEDS: TORSEMIDE 20 MG TABLET. PO SCH (08:31)
[2018-11-18] MEDS: GABAPENTIN 300 MG CAPSULE. PO SCH ×3 (08:31→21:30)
[2018-11-18] MEDS: amLODIPine BESYLATE 10 MG TABLET PO SCH (08:31)
[2018-11-18] MEDS: POTASSIUM CHLORIDE 20 MEQ TABLET.ER. PO SCH ×2 (09:00→21:30)
--- NOTE | 2018-11-18 09:01 | PDOC ---
PROGRESS NOTES Subjective Subjective Patient c/o leg pain and swelling. Patient chart reviewed and weight up from 07/23 @ 63 kg to 93 kg today. Cardiac echo in 09/2016 showed PA pressure >50 Objective Objective Vital Signs Date Time Temp Pulse Resp B/P (MAP) Pulse Ox O2 Delivery O2 Flow Rate FiO2 11/18/18 07:00 98.2 94 16 148/69 (95) 96 Room Air 98.2 Intake and Output 11/18/18 07:00 Output Total 1675 ml Balance -1675 ml Output Urine Total 1675 ml # Voids 5 Physical Exam Abdomen: Normal bowel sounds Heart: Regular rate Extremities: Other (3=edema) General: Alert Lungs: Clear to auscultation Assessment Assessment Problems Medical Problems: (1) TEJAS (acute kidney injury) Status: Acute (2) Anemia Status: Acute (3) CHF exacerbation Status: Acute (4) Hyperammonemia Status: Acute (5) Hypomagnesemia Status: Acute Anasarca Acute on chronic renal failure Liver failure ascites Pulm HTN Pancytopenia ETOH cirrhosis with hx TIPs Hepatic encephalopathy GERD Cholelithiasis Plan Plan of Care More aggressive diuresis Consult renal med Consult GI Cardiac Echo Comment Review of Relevant I have reviewed the following items lexus (where applicable) has been applied. Labs Laboratory Tests Test 11/16/18 09:51 11/16/18 11:15 11/16/18 16:34 11/16/18 21:47 White Blood Count 5.3 x10^3/uL (4.0-11.0) Red Blood Count 2.42 x10^6/uL (4.30-5.70) Hemoglobin 6.7 g/dL (13.0-17.5) Hematocrit 19.6 % (39.0-53.0) Mean Corpuscular Volume 81 fL (79-100) Mean Corpuscular Hemoglobin 28 pg (25-35) Mean Corpuscular Hemoglobin Concent 34 g/dL (31-37) Red Cell Distribution Width 15.3 % (11.5-14.5) Platelet Count 44 x10^3/uL (140-400) Neutrophils (%) (Auto) 78 % (31-73) Lymphocytes (%) (Auto) 8 % (24-48) Monocytes (%) (Auto) 10 % (0-9) Eosinophils (%) (Auto) 3 % (0-3) Basophils (%) (Auto) 1 % (0-3) Neutrophils # (Auto) 4.1 x10^3/uL (1.8-7.7) Lymphocytes # (Auto) 0.4 x10^3/uL (1.0-4.8) Monocytes # (Auto) 0.6 x10^3/uL (0.0-1.1) Eosinophils # (Auto) 0.2 x10^3/uL (0.0-0.7) Basophils # (Auto) 0.0 x10^3/uL (0.0-0.2) Sodium Level 133 mmol/L (136-145) Potassium Level 4.2 mmol/L (3.5-5.1) Chloride Level 103 mmol/L (98-107) Carbon Dioxide Level 17 mmol/L (21-32) Anion Gap 13 (6-14) Blood Urea Nitrogen 31 mg/dL (8-26) Creatinine 2.3 mg/dL (0.7-1.3) Estimated GFR (Cockcroft-Gault) 30.0 BUN/Creatinine Ratio 13 (6-20) Glucose Level 128 mg/dL (70-99) Lactic Acid Level 1.8 mmol/L (0.4-2.0) Calcium Level 8.0 mg/dL (8.5-10.1) Magnesium Level 1.6 mg/dL (1.8-2.4) Total Bilirubin 1.2 mg/dL (0.2-1.0) Aspartate Amino Transf (AST/SGOT) 45 U/L (15-37) Alanine Aminotransferase (ALT/SGPT) 16 U/L (16-63) Alkaline Phosphatase 104 U/L (46-116) Ammonia 49 mcmol/L (11-34) Troponin I Quantitative 0.027 ng/mL (0.000-0.055) EC-Kro-J-Type Natriuretic Peptide 698 pg/mL (0-124) Total Protein 6.0 g/dL (6.4-8.2) Albumin 2.1 g/dL (3.4-5.0) Albumin/Globulin Ratio 0.5 (1.0-1.7) Urine Collection Type Unknown Urine Color Yellow Urine Clarity Cloudy Urine pH 5.5 Urine Specific [place] 1.010 Urine Protein 30 mg/dL (NEG-TRACE) Urine Glucose (UA) Negative mg/dL (NEG) Urine Ketones (Stick) Negative mg/dL (NEG) Urine Blood Large (NEG) Urine Nitrite Negative (NEG) Urine Bilirubin Negative (NEG) Urine Urobilinogen Dipstick 0.2 mg/dL (0.2 mg/dL) Urine Leukocyte Esterase Negative (NEG) Urine RBC >40 /HPF (0-2) Urine WBC 1-4 /HPF (0-4) Urine Transitional Epithelial Cells Occ /LPF Urine Renal Epithelial Cells Occ /LPF Urine Bacteria Few /HPF (0-FEW) Glucose (Fingerstick) 177 mg/dL (70-99) 195 mg/dL (70-99) Test 11/17/18 06:45 11/17/18 07:23 11/17/18 11:20 11/17/18 11:31 White Blood Count 3.1 x10^3/uL (4.0-11.0) Red Blood Count 2.54 x10^6/uL (4.30-5.70) Hemoglobin 7.1 g/dL (13.0-17.5) Hematocrit 20.8 % (39.0-53.0) Mean Corpuscular Volume 82 fL (79-100) Mean Corpuscular Hemoglobin 28 pg (25-35) Mean Corpuscular Hemoglobin Concent 34 g/dL (31-37) Red Cell Distribution Width 15.3 % (11.5-14.5) Platelet Count 31 x10^3/uL (140-400) Neutrophils (%) (Auto) 68 % (31-73) Lymphocytes (%) (Auto) 13 % (24-48) Monocytes (%) (Auto) 13 % (0-9) Eosinophils (%) (Auto) 5 % (0-3) Basophils (%) (Auto) 1 % (0-3) Neutrophils # (Auto) 2.1 x10^3/uL (1.8-7.7) Lymphocytes # (Auto) 0.4 x10^3/uL (1.0-4.8) Monocytes # (Auto) 0.4 x10^3/uL (0.0-1.1) Eosinophils # (Auto) 0.1 x10^3/uL (0.0-0.7) Basophils # (Auto) 0.0 x10^3/uL (0.0-0.2) Sodium Level 137 mmol/L (136-145) Potassium Level 3.9 mmol/L (3.5-5.1) Chloride Level 107 mmol/L (98-107) Carbon Dioxide Level 20 mmol/L (21-32) Anion Gap 10 (6-14) Blood Urea Nitrogen 27 mg/dL (8-26) Creatinine 2.1 mg/dL (0.7-1.3) Estimated GFR (Cockcroft-Gault) 33.3 Glucose Level 131 mg/dL (70-99) Calcium Level 7.8 mg/dL (8.5-10.1) Iron Level 17 ug/dL (65-175) Total Iron Binding Capacity 245 ug/dL (250-450) Iron Saturation 7 % (15-34) Glucose (Fingerstick) 123 mg/dL (70-99) 192 mg/dL (70-99) Stool Occult Blood Negative (NEG) Test 11/17/18 16:45 11/17/18 20:37 11/18/18 04:10 11/18/18 07:36 Glucose (Fingerstick) 208 mg/dL (70-99) 164 mg/dL (70-99) 134 mg/dL (70-99) White Blood Count 2.7 x10^3/uL (4.0-11.0) Red Blood Count 2.55 x10^6/uL (4.30-5.70) Hemoglobin 7.1 g/dL (13.0-17.5) Hematocrit 20.8 % (39.0-53.0) Mean Corpuscular Volume 82 fL (79-100) Mean Corpuscular Hemoglobin 28 pg (25-35) Mean Corpuscular Hemoglobin Concent 34 g/dL (31-37) Red Cell Distribution Width 15.1 % (11.5-14.5) Platelet Count 33 x10^3/uL (140-400) Neutrophils (%) (Auto) 69 % (31-73) Lymphocytes (%) (Auto) 14 % (24-48) Monocytes (%) (Auto) 11 % (0-9) Eosinophils (%) (Auto) 4 % (0-3) Basophils (%) (Auto) 1 % (0-3) Neutrophils # (Auto) 1.8 x10^3/uL (1.8-7.7) Lymphocytes # (Auto) 0.4 x10^3/uL (1.0-4.8) Monocytes # (Auto) 0.3 x10^3/uL (0.0-1.1) Eosinophils # (Auto) 0.1 x10^3/uL (0.0-0.7) Basophils # (Auto) 0.0 x10^3/uL (0.0-0.2) Sodium Level 138 mmol/L (136-145) Potassium Level 3.5 mmol/L (3.5-5.1) Chloride Level 107 mmol/L (98-107) Carbon Dioxide Level 22 mmol/L (21-32) Anion Gap 9 (6-14) Blood Urea Nitrogen 23 mg/dL (8-26) Creatinine 1.8 mg/dL (0.7-1.3) Estimated GFR (Cockcroft-Gault) 39.8 Glucose Level 173 mg/dL (70-99) Calcium Level 7.8 mg/dL (8.5-10.1) Laboratory Tests Test 11/17/18 11:20 11/17/18 11:31 11/17/18 16:45 11/17/18 20:37 Stool Occult Blood Negative (NEG) Glucose (Fingerstick) 192 mg/dL (70-99) 208 mg/dL (70-99) 164 mg/dL (70-99) Test 11/18/18 04:10 11/18/18 07:36 White Blood Count 2.7 x10^3/uL (4.0-11.0) Red Blood Count 2.55 x10^6/uL (4.30-5.70) Hemoglobin 7.1 g/dL (13.0-17.5) Hematocrit 20.8 % (39.0-53.0) Mean Corpuscular Volume 82 fL (79-100) Mean Corpuscular Hemoglobin 28 pg (25-35) Mean Corpuscular Hemoglobin Concent 34 g/dL (31-37) Red Cell Distribution Width 15.1 % (11.5-14.5) Platelet Count 33 x10^3/uL (140-400) Neutrophils (%) (Auto) 69 % (31-73) Lymphocytes (%) (Auto) 14 % (24-48) Monocytes (%) (Auto) 11 % (0-9) Eosinophils (%) (Auto) 4 % (0-3) Basophils (%) (Auto) 1 % (0-3) Neutrophils # (Auto) 1.8 x10^3/uL (1.8-7.7) Lymphocytes # (Auto) 0.4 x10^3/uL (1.0-4.8) Monocytes # (Auto) 0.3 x10^3/uL (0.0-1.1) Eosinophils # (Auto) 0.1 x10^3/uL (0.0-0.7) Basophils # (Auto) 0.0 x10^3/uL (0.0-0.2) Sodium Level 138 mmol/L (136-145) Potassium Level 3.5 mmol/L (3.5-5.1) Chloride Level 107 mmol/L (98-107) Carbon Dioxide Level 22 mmol/L (21-32) Anion Gap 9 (6-14) Blood Urea Nitrogen 23 mg/dL (8-26) Creatinine 1.8 mg/dL (0.7-1.3) Estimated GFR (Cockcroft-Gault) 39.8 Glucose Level 173 mg/dL (70-99) Calcium Level 7.8 mg/dL (8.5-10.1) Glucose (Fingerstick) 134 mg/dL (70-99) Medications Current Medications Morphine Sulfate (Morphine Sulfate) 4 mg 1X ONCE IV Last administered on 11/16/18at 10:35; Start 11/16/18 at 09:45; Stop 11/16/18 at 09:50; Status DC Ondansetron HCl (Zofran) 4 mg 1X ONCE IV Last administered on 11/16/18at 10:35; Start 11/16/18 at 09:45; Stop 11/16/18 at 09:52; Status DC Magnesium Sulfate/ Dextrose 100 ml @ 100 mls/hr 1X ONCE IV Last administered on 11/16/18at 10:58; Start 11/16/18 at 10:45; Stop 11/16/18 at 11:44; Status DC Ondansetron HCl (Zofran) 4 mg PRN Q8HRS PRN IV NAUSEA/VOMITING; Start 11/16/18 at 11:00; Stop 11/17/18 at 10:59; Status DC Morphine Sulfate (Morphine Sulfate) 2 mg PRN Q2HR PRN IV PAIN Last administered on 11/17/18 10:02; Start 11/16/18 at 11:00; Stop 11/17/18 at 10:59; Status DC Sodium Chloride 1,000 ml @ 75 mls/hr [id number] IV Last administered on 11/17/18 04:03; Start 11/16/18 at 10:54; Stop 11/17/18 at 10:53; Status DC Amlodipine Besylate (Norvasc) 10 mg DAILY PO Last administered on 11/17/18 09:01; Start 11/17/18 at 09:00 Ferrous Sulfate (Feosol) 325 mg DAILY PO Last administered on 11/17/18 09:01; Start 11/17/18 at 09:00 Folic Acid (Folic Acid) 1 mg DAILY PO Last administered on 11/17/18 09:01; Start 11/17/18 at 09:00 Lactulose (Lactulose) 20 gm DAILY PO Last administered on 11/17/18 09:01; Start 11/17/18 at 09:00 Potassium Chloride (Klor-Con) 10 meq DAILY PO Last administered on 11/17/18 09:01; Start 11/17/18 at 09:00 Torsemide (Demadex) 20 mg DAILY PO Last administered on 11/17/18 09:01; Start 11/17/18 at 09:00 Trazodone HCl (Desyrel) 100 mg QHS PO Last administered on 11/17/18 20:48; Start 11/16/18 at 21:00 Pantoprazole Sodium (Protonix) 40 mg DAILYAC PO Last administered on 11/17/18 09:01; Start 11/17/18 at 07:30 Gabapentin (Neurontin) 300 mg TID PO Last administered on 11/17/18 20:48; Start 11/16/18 at 21:00 Non-Formulary Medication (Pantoprazole Sodium (Protonix)) 40 mg DAILY PO ; Start 11/17/18 at 09:00; Status UNV Bumetanide (Bumex) 1 mg 1X ONCE IV Last administered on 11/16/18 18:39; Start 11/16/18 at 17:15; Stop 11/16/18 at 17:19; Status DC Rifaximin (Xifaxan) 550 mg Q12HR PO Last administered on 11/17/18at 20:48; St art 11/17/18 at 09:00 Lisinopril (Prinivil) 5 mg DAILY PO Last administered on 11/17/18at 10:02; Start 11/17/18 at 09:00 Iron Sucrose 200 mg/Sodium Chloride 110 ml @ 55 mls/hr 1X ONCE IV Last administered on 11/17/18at 14:41; Start 11/17/18 at 14:00; Stop 11/17/18 at 15:59; Status DC Bumetanide (Bumex) 2.5 mg 1X ONCE IV Last administered on 11/17/18at 17:45; Start 11/17/18 at 17:00; Stop 11/17/18 at 17:08; Status DC Morphine Sulfate (Morphine Sulfate) 2 mg PRN Q2HR PRN IV PAIN Last administered on 11/18/18at 00:39; Start 11/17/18 at 19:15 Active Scripts Active Lactulose 20 Gm/30 Ml Solution 20 Gm PO DAILY 30 Days Reported Nexium Capsule (Esomeprazole Magnesium) 40 Mg Capsule.dr 1 Cap PO DAILY Trazodone Hcl 100 Mg Tablet 1 Tab PO QHS Potassium Chloride 10 Meq Tab.sr.24h 10 Meq PO DAILY Amlodipine Besylate 10 Mg Tablet 10 Mg PO DAILY Protonix (Pantoprazole Sodium) 20 Mg Tablet.dr 40 Mg PO DAILY Ferrous Sulfate 325 Mg Tablet 1 Tab PO DAILY Torsemide 20 Mg Tablet 1 Tab PO DAILY Gabapentin 600 Mg Tablet 300 Mg PO TID Folic Acid 1 Mg Tablet 1 Mg PO DAILY Vitals/I & O Vital Sign - Last 24 Hours 11/17/18 11/17/18 11/17/18 11/17/18 09:01 10:02 10:02 11:00 Temp 98.0 98.0 Pulse 96 96 62 Resp 16 B/P (MAP) 139/77 139/77 153/72 (99) Pulse Ox 92 91 O2 Delivery Room Air Room Air 11/17/18 11/17/18 11/17/18 11/17/18 15:00 19:00 20:00 20:48 Temp 97.4 97.6 97.4 97.6 Pulse 98 98 Resp 20 20 B/P (MAP) 164/90 (114) 156/86 (109) Pulse Ox 94 95 O2 Delivery Room Air Room Air Room Air 11/17/18 11/17/18 11/18/18 11/18/18 21:36 23:03 00:39 01:17 Temp 98.1 98.1 Pulse 96 Resp 20 B/P (MAP) 132/65 (87) Pulse Ox 96 O2 Delivery Room Air Room Air Room Air Room Air 11/18/18 11/18/18 03:12 07:00 Temp 98.6 98.2 98.6 98.2 Pulse 108 94 Resp 20 16 B/P (MAP) 156/71 (99) 148/69 (95) Pulse Ox 92 96 O2 Delivery Room Air Room Air Intake and Output 11/17/18 11/17/18 11/18/18 15:00 23:00 07:00 Output Total 1175 ml 500 ml Balance -1175 ml -500 ml JENNIFER NIEVES MD Nov 18, 2018 09:01
[2018-11-18 11:00] VITALS: BP 141/78
--- NOTE | 2018-11-18 12:13 | PDOC ---
G I PROGRESS NOTE Reason for Follow-up Ascites/anasarca Subjective 52 y/o male with known chronic liver disease/cirrhosis. Just in last week for PSE. Presented couple of days ago with fairly rapid onset of increasing ascites and anasarca. Has had ascites before, but generally does OK on torsemide. Over last couple of days, resistant to diuretics. Renal asked to see as well. Does apparently have history of pum HTN as well. Says compliant with meds. Reflux and portal gastropathy at EGD in March. 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 TIPS patent when last checked. No PUD, pancreatic history. Known cholelithiasis. Former smoker. Has continued to drink some. No D, C, overt bleeding and heme negative stool. Colonoscopy by his report in the past with results not recalled. AFP normal last week. Physical Exam Alert, oriented x 3. Lungs clear. RRR with "hemic" murmur. Abdomen soft, with some ascites. Not tender. Can't palpate liver with the ascites. No mass appreciated. Neuro grossly intact. No obvious jaundice. Review of Relevant I have reviewed the following items lexus (where applicable) has been applied. Labs Laboratory Tests Test 11/16/18 16:34 11/16/18 21:47 11/17/18 06:45 11/17/18 07:23 Glucose (Fingerstick) 177 mg/dL (70-99) 195 mg/dL (70-99) 123 mg/dL (70-99) White Blood Count 3.1 x10^3/uL (4.0-11.0) Red Blood Count 2.54 x10^6/uL (4.30-5.70) Hemoglobin 7.1 g/dL (13.0-17.5) Hematocrit 20.8 % (39.0-53.0) Mean Corpuscular Volume 82 fL (79-100) Mean Corpuscular Hemoglobin 28 pg (25-35) Mean Corpuscular Hemoglobin Concent 34 g/dL (31-37) Red Cell Distribution Width 15.3 % (11.5-14.5) Platelet Count 31 x10^3/uL (140-400) Neutrophils (%) (Auto) 68 % (31-73) Lymphocytes (%) (Auto) 13 % (24-48) Monocytes (%) (Auto) 13 % (0-9) Eosinophils (%) (Auto) 5 % (0-3) Basophils (%) (Auto) 1 % (0-3) Neutrophils # (Auto) 2.1 x10^3/uL (1.8-7.7) Lymphocytes # (Auto) 0.4 x10^3/uL (1.0-4.8) Monocytes # (Auto) 0.4 x10^3/uL (0.0-1.1) Eosinophils # (Auto) 0.1 x10^3/uL (0.0-0.7) Basophils # (Auto) 0.0 x10^3/uL (0.0-0.2) Sodium Level 137 mmol/L (136-145) Potassium Level 3.9 mmol/L (3.5-5.1) Chloride Level 107 mmol/L (98-107) Carbon Dioxide Level 20 mmol/L (21-32) Anion Gap 10 (6-14) Blood Urea Nitrogen 27 mg/dL (8-26) Creatinine 2.1 mg/dL (0.7-1.3) Estimated GFR (Cockcroft-Gault) 33.3 Glucose Level 131 mg/dL (70-99) Calcium Level 7.8 mg/dL (8.5-10.1) Iron Level 17 ug/dL (65-175) Total Iron Binding Capacity 245 ug/dL (250-450) Iron Saturation 7 % (15-34) Test 11/17/18 11:20 11/17/18 11:31 11/17/18 16:45 11/17/18 20:37 Stool Occult Blood Negative (NEG) Glucose (Fingerstick) 192 mg/dL (70-99) 208 mg/dL (70-99) 164 mg/dL (70-99) Test 11/18/18 04:10 11/18/18 07:36 White Blood Count 2.7 x10^3/uL (4.0-11.0) Red Blood Count 2.55 x10^6/uL (4.30-5.70) Hemoglobin 7.1 g/dL (13.0-17.5) Hematocrit 20.8 % (39.0-53.0) Mean Corpuscular Volume 82 fL (79-100) Mean Corpuscular Hemoglobin 28 pg (25-35) Mean Corpuscular Hemoglobin Concent 34 g/dL (31-37) Red Cell Distribution Width 15.1 % (11.5-14.5) Platelet Count 33 x10^3/uL (140-400) Neutrophils (%) (Auto) 69 % (31-73) Lymphocytes (%) (Auto) 14 % (24-48) Monocytes (%) (Auto) 11 % (0-9) Eosinophils (%) (Auto) 4 % (0-3) Basophils (%) (Auto) 1 % (0-3) Neutrophils # (Auto) 1.8 x10^3/uL (1.8-7.7) Lymphocytes # (Auto) 0.4 x10^3/uL (1.0-4.8) Monocytes # (Auto) 0.3 x10^3/uL (0.0-1.1) Eosinophils # (Auto) 0.1 x10^3/uL (0.0-0.7) Basophils # (Auto) 0.0 x10^3/uL (0.0-0.2) Sodium Level 138 mmol/L (136-145) Potassium Level 3.5 mmol/L (3.5-5.1) Chloride Level 107 mmol/L (98-107) Carbon Dioxide Level 22 mmol/L (21-32) Anion Gap 9 (6-14) Blood Urea Nitrogen 23 mg/dL (8-26) Creatinine 1.8 mg/dL (0.7-1.3) Estimated GFR (Cockcroft-Gault) 39.8 Glucose Level 173 mg/dL (70-99) Calcium Level 7.8 mg/dL (8.5-10.1) Glucose (Fingerstick) 134 mg/dL (70-99) Laboratory Tests Test 11/17/18 16:45 11/17/18 20:37 11/18/18 04:10 11/18/18 07:36 Glucose (Fingerstick) 208 mg/dL (70-99) 164 mg/dL (70-99) 134 mg/dL (70-99) White Blood Count 2.7 x10^3/uL (4.0-11.0) Red Blood Count 2.55 x10^6/uL (4.30-5.70) Hemoglobin 7.1 g/dL (13.0-17.5) Hematocrit 20.8 % (39.0-53.0) Mean Corpuscular Volume 82 fL (79-100) Mean Corpuscular Hemoglobin 28 pg (25-35) Mean Corpuscular Hemoglobin Concent 34 g/dL (31-37) Red Cell Distribution Width 15.1 % (11.5-14.5) Platelet Count 33 x10^3/uL (140-400) Neutrophils (%) (Auto) 69 % (31-73) Lymphocytes (%) (Auto) 14 % (24-48) Monocytes (%) (Auto) 11 % (0-9) Eosinophils (%) (Auto) 4 % (0-3) Basophils (%) (Auto) 1 % (0-3) Neutrophils # (Auto) 1.8 x10^3/uL (1.8-7.7) Lymphocytes # (Auto) 0.4 x10^3/uL (1.0-4.8) Monocytes # (Auto) 0.3 x10^3/uL (0.0-1.1) Eosinophils # (Auto) 0.1 x10^3/uL (0.0-0.7) Basophils # (Auto) 0.0 x10^3/uL (0.0-0.2) Sodium Level 138 mmol/L (136-145) Potassium Level 3.5 mmol/L (3.5-5.1) Chloride Level 107 mmol/L (98-107) Carbon Dioxide Level 22 mmol/L (21-32) Anion Gap 9 (6-14) Blood Urea Nitrogen 23 mg/dL (8-26) Creatinine 1.8 mg/dL (0.7-1.3) Estimated GFR (Cockcroft-Gault) 39.8 Glucose Level 173 mg/dL (70-99) Calcium Level 7.8 mg/dL (8.5-10.1) 'Cytopenias old with negative heme w/u. Rising creatinine. Vitals/I & O Vital Sign - Last 24 Hours 11/17/18 11/17/18 11/17/18 11/17/18 15:00 19:00 20:00 20:48 Temp 97.4 97.6 97.4 97.6 Pulse 98 98 Resp 20 20 B/P (MAP) 164/90 (114) 156/86 (109) Pulse Ox 94 95 O2 Delivery Room Air Room Air Room Air 11/17/18 11/17/18 11/18/18 11/18/18 21:36 23:03 00:39 01:17 Temp 98.1 98.1 Pulse 96 Resp 20 B/P (MAP) 132/65 (87) Pulse Ox 96 O2 Delivery Room Air Room Air Room Air Room Air 11/18/18 11/18/18 11/18/18 11/18/18 03:12 07:00 08:00 09:10 Temp 98.6 98.2 98.6 98.2 Pulse 108 94 94 Resp 20 16 B/P (MAP) 156/71 (99) 148/69 (95) 148/69 Pulse Ox 92 96 O2 Delivery Room Air Room Air Room Air 11/18/18 11/18/18 11/18/18 11/18/18 09:10 09:10 10:48 11:45 Pulse 94 B/P (MAP) 148/69 Pulse Ox 96 96 96 O2 Delivery Room Air Room Air Room Air Intake and Output 11/17/18 11/17/18 11/18/18 14:59 22:59 06:59 Output Total 1175 ml 500 ml Balance -1175 ml -500 ml Problem List Problems Medical Problems: (1) TEJAS (acute kidney injury) Status: Acute (2) Anemia Status: Acute (3) CHF exacerbation Status: Acute (4) Hyperammonemia Status: Acute (5) Hypomagnesemia Status: Acute Assessment Rapid increase in ascites with anasarca. May be multifactorial, but consider HRS. Cirrhoisis as above. Plan of Care Note Interrogate TIPS. Agree with renal opinion. Continue PPI, PSE meds. paracentesis if uncomfortable. JENNIFER VÁZQUEZ MD Nov 18, 2018 12:13
--- NOTE | 2018-11-18 12:45 | PDOC2 ---
CONSULT Date of Consult Date of Consult DATE: 11/18/18 TIME: 12:39 Reason for Consult Reason for Consult: TEJAS Referring Physician Referring Physician: MOUNA Identification/Chief Complaint Chief Complaint SWELLING Source Source: Chart review, Patient History of Present Illness Reason for Visit: THIS IS A 52 YR OLD WITH INCREASING ABD GIRTH AND LE SWELLING. HX NOTABLE FOR CIRRHOSIS AND PSE RECENTLY. [place] HAS HAD VARICES WITH BANDING AND TIPS. CR OF 2.3 ON ADMIT AND STATES THAT HIS DIURETICS ARE NOT WORKING WELL. STATES HE HAS BEEN TAKING HIS MEDS. APPEARS TO HAVE CKD STAGE 3 WITH CR IN THE RANGE OF 1.3- 1.8 OVER THE LAST YEAR. NO NEPHROTOXINS NOTED. HE DOES NOT REPORT ANY HX. HE IS HYPERTENSIVE Past Medical History Cardiovascular: CAD, CHF, HTN, Hyperlipidemia Pulmonary: Asthma CENTRAL NERVOUS SYSTEM: Periperal neuropathy GI: GERD, GI bleed, Gastritis, Peptic Ulcer disease Heme/Onc: Iron deficiency Anemia Hepatobiliary: Cirrhosis Psych: No pertinent hx Musculoskeletal: Osteoarthritis Rheumatologic: No pertinent hx Infectious disease: No pertinent hx Renal/: Chronic renal insuff Endocrine: Diabetes Past Surgical History Past Surgical History: CABG, Cataract Removal, Total knee replacement, Other Family History Family History: Diabetes, Stroke Social History No ALCOHOL: none Drugs: Marijuana Lives: with Family Current Problem List Problem List Problems Medical Problems: (1) TEJAS (acute kidney injury) Status: Acute (2) Anemia Status: Acute (3) CHF exacerbation Status: Acute (4) Hyperammonemia Status: Acute (5) Hypomagnesemia Status: Acute Current Medications Current Medications Current Medications Morphine Sulfate (Morphine Sulfate) 4 mg 1X ONCE IV Last administered on 11/16/18at 10:35; Start 11/16/18 at 09:45; Stop 11/16/18 at 09:50; Status DC Ondansetron HCl (Zofran) 4 mg 1X ONCE IV Last administered on 11/16/18at 10:35; Start 11/16/18 at 09:45; Stop 11/16/18 at 09:52; Status DC Magnesium Sulfate/ Dextrose 100 ml @ 100 mls/hr 1X ONCE IV Last administered on 11/16/18at 10:58; Start 11/16/18 at 10:45; Stop 11/16/18 at 11:44; Status DC Ondansetron HCl (Zofran) 4 mg PRN Q8HRS PRN IV NAUSEA/VOMITING; Start 11/16/18 at 11:00; Stop 11/17/18 at 10:59; Status DC Morphine Sulfate (Morphine Sulfate) 2 mg PRN Q2HR PRN IV PAIN Last administered on 11/17/18 10:02; Start 11/16/18 at 11:00; Stop 11/17/18 at 10:59; Status DC Sodium Chloride 1,000 ml @ 75 mls/hr [id number] IV Last administered on 11/17/18 04:03; Start 11/16/18 at 10:54; Stop 11/17/18 at 10:53; Status DC Amlodipine Besylate (Norvasc) 10 mg DAILY PO Last administered on 11/18/18 09:10; Start 11/17/18 at 09:00 Ferrous Sulfate (Feosol) 325 mg DAILY PO Last administered on 11/18/18 09:10; Start 11/17/18 at 09:00 Folic Acid (Folic Acid) 1 mg DAILY PO Last administered on 11/18/18 09:10; Start 11/17/18 at 09:00 Lactulose (Lactulose) 20 gm DAILY PO Last administered on 11/18/18 09:10; Start 11/17/18 at 09:00 Potassium Chloride (Klor-Con) 10 meq DAILY PO Last administered on 11/17/18 09:01; Start 11/17/18 at 09:00; Stop 11/18/18 at 08:53; Status DC Torsemide (Demadex) 20 mg DAILY PO Last administered on 11/18/18 09:10; Start 11/17/18 at 09:00 Trazodone HCl (Desyrel) 100 mg QHS PO Last administered on 11/17/18 20:48; Start 11/16/18 at 21:00 Pantoprazole Sodium (Protonix) 40 mg DAILYAC PO Last administered on 11/18/18 09:10; Start 11/17/18 at 07:30 Gabapentin (Neurontin) 300 mg TID PO Last administered on 11/18/18 09:10; Start 11/16/18 at 21:00 Non-Formulary Medication (Pantoprazole Sodium (Protonix)) 40 mg DAILY PO ; Start 11/17/18 at 09:00; Status UNV Bumetanide (Bumex) 1 mg 1X ONCE IV Last administered on 11/16/18at 18:39; Start 11/16/18 at 17:15; Stop 11/16/18 at 17:19; Status DC Rifaximin (Xifaxan) 550 mg Q12HR PO Last administered on 11/18/18at 09:10; Start 11/17/18 at 09:00 Lisinopril (Prinivil) 5 mg DAILY PO Last administered on 11/18/18at 09:10; Start 11/17/18 at 09:00 Iron Sucrose 200 mg/Sodium Chloride 110 ml @ 55 mls/hr 1X ONCE IV Last administered on 11/17/18at 14:41; Start 11/17/18 at 14:00; Stop 11/17/18 at 15:59; Status DC Bumetanide (Bumex) 2.5 mg 1X ONCE IV Last administered on 11/17/18at 17:45; Start 11/17/18 at 17:00; Stop 11/17/18 at 17:08; Status DC Morphine Sulfate (Morphine Sulfate) 2 mg PRN Q2HR PRN IV PAIN Last administered on 11/18/18at 11:45; Start 11/17/18 at 19:15 Furosemide (Lasix) 40 mg 1X ONCE IVP ; Start 11/18/18 at 14:00; Stop 11/18/18 at 14:01 Potassium Chloride (Klor-Con) 20 meq BID PO Last administered on 11/18/18at 10:49; Start 11/18/18 at 09:00 Metolazone (Zaroxolyn) 5 mg DAILY PO ; Start 11/18/18 at 13:30; Stop 11/20/18 at 08:00 Albumin Human 100 ml @ 100 mls/hr 1X ONCE IV ; Start 11/18/18 at 13:40; Stop 11/18/18 at 14:39 Active Scripts Active Lactulose 20 Gm/30 Ml Solution 20 Gm PO DAILY 30 Days Reported Nexium Capsule (Esomeprazole Magnesium) 40 Mg Capsule.dr 1 Cap PO DAILY Trazodone Hcl 100 Mg Tablet 1 Tab PO QHS Potassium Chloride 10 Meq Tab.sr.24h 10 Meq PO DAILY Amlodipine Besylate 10 Mg Tablet 10 Mg PO DAILY Protonix (Pantoprazole Sodium) 20 Mg Tablet.dr 40 Mg PO DAILY Ferrous Sulfate 325 Mg Tablet 1 Tab PO DAILY Torsemide 20 Mg Tablet 1 Tab PO DAILY Gabapentin 600 Mg Tablet 300 Mg PO TID Folic Acid 1 Mg Tablet 1 Mg PO DAILY Allergies Allergies: Coded Allergies: No Known Drug Allergies (Unverified , 04/06/18) ROS General: YES: Fatigue, Malaise, Appetite PSYCHOLOGICAL ROS: YES: Anxiety Eyes: Yes Decreased vision HEENT: YES: Heacaches ALLERGY AND IMMUNOLOGY: YES: Seasonal Allergies Respiratory: YES: Cough, Shortness of breath Cardiovascular: yes Edema Gastrointestinal: Yes Other (ABD DISTENTION) Genitourinary: YES Other (NOCTURIA) Musculoskeletal: Yes Muscular Weakness Neurological: Yes Weakness Skin: Yes Nail Changes, Yes Skin Lesion Changes Physical Exam General: Alert, Oriented X3, Cooperative, No acute distress HEENT: Atraumatic, PERRLA, EOMI Lungs: Clear to auscultation Heart: Regular rate, Normal S1 Abdomen: No tenderness, Other (DISTENDED, ASCITES) Skin: No rashes Neuro: Normal speech, Sensation intact Psych/Mental Status: Mental status NL, Mood NL MUSCULOSKELETAL: Other (3-4+ LE EDEMA) Vitals VITALS Vital Signs Date Time Temp Pulse Resp B/P (MAP) Pulse Ox O2 Delivery O2 Flow Rate FiO2 11/18/18 12:29 96 Room Air 11/18/18 09:10 94 148/69 11/18/18 07:00 98.2 16 98.2 Labs Labs Laboratory Tests Test 11/16/18 16:34 11/16/18 21:47 11/17/18 06:45 11/17/18 07:23 Glucose (Fingerstick) 177 mg/dL (70-99) 195 mg/dL (70-99) 123 mg/dL (70-99) White Blood Count 3.1 x10^3/uL (4.0-11.0) Red Blood Count 2.54 x10^6/uL (4.30-5.70) Hemoglobin 7.1 g/dL (13.0-17.5) Hematocrit 20.8 % (39.0-53.0) Mean Corpuscular Volume 82 fL (79-100) Mean Corpuscular Hemoglobin 28 pg (25-35) Mean Corpuscular Hemoglobin Concent 34 g/dL (31-37) Red Cell Distribution Width 15.3 % (11.5-14.5) Platelet Count 31 x10^3/uL (140-400) Neutrophils (%) (Auto) 68 % (31-73) Lymphocytes (%) (Auto) 13 % (24-48) Monocytes (%) (Auto) 13 % (0-9) Eosinophils (%) (Auto) 5 % (0-3) Basophils (%) (Auto) 1 % (0-3) Neutrophils # (Auto) 2.1 x10^3/uL (1.8-7.7) Lymphocytes # (Auto) 0.4 x10^3/uL (1.0-4.8) Monocytes # (Auto) 0.4 x10^3/uL (0.0-1.1) Eosinophils # (Auto) 0.1 x10^3/uL (0.0-0.7) Basophils # (Auto) 0.0 x10^3/uL (0.0-0.2) Sodium Level 137 mmol/L (136-145) Potassium Level 3.9 mmol/L (3.5-5.1) Chloride Level 107 mmol/L (98-107) Carbon Dioxide Level 20 mmol/L (21-32) Anion Gap 10 (6-14) Blood Urea Nitrogen 27 mg/dL (8-26) Creatinine 2.1 mg/dL (0.7-1.3) Estimated GFR (Cockcroft-Gault) 33.3 Glucose Level 131 mg/dL (70-99) Calcium Level 7.8 mg/dL (8.5-10.1) Iron Level 17 ug/dL (65-175) Total Iron Binding Capacity 245 ug/dL (250-450) Iron Saturation 7 % (15-34) Test 11/17/18 11:20 11/17/18 11:31 11/17/18 16:45 11/17/18 20:37 Stool Occult Blood Negative (NEG) Glucose (Fingerstick) 192 mg/dL (70-99) 208 mg/dL (70-99) 164 mg/dL (70-99) Test 11/18/18 04:10 11/18/18 07:36 11/18/18 12:27 White Blood Count 2.7 x10^3/uL (4.0-11.0) Red Blood Count 2.55 x10^6/uL (4.30-5.70) Hemoglobin 7.1 g/dL (13.0-17.5) Hematocrit 20.8 % (39.0-53.0) Mean Corpuscular Volume 82 fL (79-100) Mean Corpuscular Hemoglobin 28 pg (25-35) Mean Corpuscular Hemoglobin Concent 34 g/dL (31-37) Red Cell Distribution Width 15.1 % (11.5-14.5) Platelet Count 33 x10^3/uL (140-400) Neutrophils (%) (Auto) 69 % (31-73) Lymphocytes (%) (Auto) 14 % (24-48) Monocytes (%) (Auto) 11 % (0-9) Eosinophils (%) (Auto) 4 % (0-3) Basophils (%) (Auto) 1 % (0-3) Neutrophils # (Auto) 1.8 x10^3/uL (1.8-7.7) Lymphocytes # (Auto) 0.4 x10^3/uL (1.0-4.8) Monocytes # (Auto) 0.3 x10^3/uL (0.0-1.1) Eosinophils # (Auto) 0.1 x10^3/uL (0.0-0.7) Basophils # (Auto) 0.0 x10^3/uL (0.0-0.2) Sodium Level 138 mmol/L (136-145) Potassium Level 3.5 mmol/L (3.5-5.1) Chloride Level 107 mmol/L (98-107) Carbon Dioxide Level 22 mmol/L (21-32) Anion Gap 9 (6-14) Blood Urea Nitrogen 23 mg/dL (8-26) Creatinine 1.8 mg/dL (0.7-1.3) Estimated GFR (Cockcroft-Gault) 39.8 Glucose Level 173 mg/dL (70-99) Calcium Level 7.8 mg/dL (8.5-10.1) Glucose (Fingerstick) 134 mg/dL (70-99) 173 mg/dL (70-99) Laboratory Tests Test 11/17/18 16:45 11/17/18 20:37 11/18/18 04:10 11/18/18 07:36 Glucose (Fingerstick) 208 mg/dL (70-99) 164 mg/dL (70-99) 134 mg/dL (70-99) White Blood Count 2.7 x10^3/uL (4.0-11.0) Red Blood Count 2.55 x10^6/uL (4.30-5.70) Hemoglobin 7.1 g/dL (13.0-17.5) Hematocrit 20.8 % (39.0-53.0) Mean Corpuscular Volume 82 fL (79-100) Mean Corpuscular Hemoglobin 28 pg (25-35) Mean Corpuscular Hemoglobin Concent 34 g/dL (31-37) Red Cell Distribution Width 15.1 % (11.5-14.5) Platelet Count 33 x10^3/uL (140-400) Neutrophils (%) (Auto) 69 % (31-73) Lymphocytes (%) (Auto) 14 % (24-48) Monocytes (%) (Auto) 11 % (0-9) Eosinophils (%) (Auto) 4 % (0-3) Basophils (%) (Auto) 1 % (0-3) Neutrophils # (Auto) 1.8 x10^3/uL (1.8-7.7) Lymphocytes # (Auto) 0.4 x10^3/uL (1.0-4.8) Monocytes # (Auto) 0.3 x10^3/uL (0.0-1.1) Eosinophils # (Auto) 0.1 x10^3/uL (0.0-0.7) Basophils # (Auto) 0.0 x10^3/uL (0.0-0.2) Sodium Level 138 mmol/L (136-145) Potassium Level 3.5 mmol/L (3.5-5.1) Chloride Level 107 mmol/L (98-107) Carbon Dioxide Level 22 mmol/L (21-32) Anion Gap 9 (6-14) Blood Urea Nitrogen 23 mg/dL (8-26) Creatinine 1.8 mg/dL (0.7-1.3) Estimated GFR (Cockcroft-Gault) 39.8 Glucose Level 173 mg/dL (70-99) Calcium Level 7.8 mg/dL (8.5-10.1) Test 11/18/18 12:27 Glucose (Fingerstick) 173 mg/dL (70-99) Assessment/Plan Assessment/Plan IMP TEJAS WITH CR OF 2.3 CKD STAGE 3 WITH CR OF 1.3-1.8 CIRRHOSIS WITH HX OF PSE, TIPS AND VARICEAL BANDING ANEMIA WITH IRON DEFICIENCY ACUTE CHF-DIASTOLIC, HYPERVOLEMIA STATE MALIGNANT HTN-PARTLY VOLUME DEPENDENT PLAN IV DIURETICS CONT PO METOLAZONE IV ALBUMIN CHECK TIPS PATENCY IV IRON D/C LISINOPRIL WILL FOLLOW MIREYA SUAREZ MD Nov 18, 2018 12:45
[2018-11-18] MEDS ORDERED: FUROSEMIDE 40 MG/4 ML VIAL. IVP ONE ×2 (13:00→14:00)
[2018-11-18] MEDS ORDERED: ALBUMIN HUMAN 25% 100 ML IV ONE (13:40)
[2018-11-18] MEDS: metOLazone 2.5 MG TABLET PO SCH (13:44)
[2018-11-18 15:00] VITALS: BP 149/73
[2018-11-18] MEDS: FUROSEMIDE 40 MG/4 ML VIAL. IVP SCH ×2 (17:23→21:31)
[2018-11-18 19:00] VITALS: BP 149/72
[2018-11-18] MEDS: traZODone 100 MG TABLET. PO SCH (21:30)
[2018-11-18 22:58] VITALS: BP 162/80
[2018-11-19] MEDS: MORPHINE SULFATE 2 MG/ML VIAL. IV PRN ×8 (02:13→20:50)
[2018-11-19 02:46] VITALS: BP 147/74
[2018-11-19 05:04] LABS: HEMATOCRIT 24.9 % (39.0-53.0); HEMOGLOBIN 8.5 g/dL (13.0-17.5); RED BLOOD COUNT 3.03 x10^6/uL (4.30-5.70); RED CELL DISTRIBUTION WIDTH 15.6 % (11.5-14.5); WHITE BLOOD COUNT 4.2 x10^3/uL (4.0-11.0)
[2018-11-19 05:25] LABS: CALCIUM 8.6 mg/dL (8.5-10.1); CREATININE 1.8 mg/dL (0.7-1.3); GFR 39.8; POTASSIUM 3.7 mmol/L (3.5-5.1)
[2018-11-19 05:38] LABS: MAGNESIUM 1.2 mg/dL (1.8-2.4); PHOSPHORUS 4.2 mg/dL (2.6-4.7)
[2018-11-19] MEDS: FUROSEMIDE 40 MG/4 ML VIAL. IVP SCH ×3 (06:04→22:09)
[2018-11-19 06:44] VITALS: BP 153/71
--- NOTE | 2018-11-19 08:30 | PDOC ---
PROGRESS NOTES Subjective Subjective Patient without new complaints. Poor response to diuresis attempts. Appreciate collection systems consultant input. Objective Objective Vital Signs Date Time Temp Pulse Resp B/P (MAP) Pulse Ox O2 Delivery O2 Flow Rate FiO2 11/19/18 06:44 97.9 96 17 153/71 (98) 94 Room Air 97.9 Intake and Output 11/19/18 06:59 Intake Total 1290 ml Output Total 700 ml Balance 590 ml Intake Oral 1290 ml Output Urine Total 700 ml Physical Exam Abdomen: Normal bowel sounds Heart: No murmurs Extremities: Other (3+ edema) General: Alert Lungs: Clear to auscultation Assessment Assessment Problems Medical Problems: (1) TEJAS (acute kidney injury) Status: Acute (2) Anemia Status: Acute (3) CHF exacerbation Status: Acute (4) Hyperammonemia Status: Acute (5) Hypomagnesemia Status: Acute Anasarca Hepatorenal syndrome Acute on chronic renal failure Liver failure ascites Pulm HTN Pancytopenia ETOH cirrhosis with hx TIPs Hepatic encephalopathy GERD Cholelithiasis Plan Plan of Care Continue diuresis efforts Increase activity Echo and Abd sono pending Comment Review of Relevant I have reviewed the following items lexus (where applicable) has been applied. Labs Laboratory Tests Test 11/17/18 11:20 11/17/18 11:31 11/17/18 16:45 11/17/18 20:37 Stool Occult Blood Negative (NEG) Glucose (Fingerstick) 192 mg/dL (70-99) 208 mg/dL (70-99) 164 mg/dL (70-99) Test 11/18/18 04:10 11/18/18 07:36 11/18/18 12:27 11/18/18 16:59 White Blood Count 2.7 x10^3/uL (4.0-11.0) Red Blood Count 2.55 x10^6/uL (4.30-5.70) Hemoglobin 7.1 g/dL (13.0-17.5) Hematocrit 20.8 % (39.0-53.0) Mean Corpuscular Volume 82 fL (79-100) Mean Corpuscular Hemoglobin 28 pg (25-35) Mean Corpuscular Hemoglobin Concent 34 g/dL (31-37) Red Cell Distribution Width 15.1 % (11.5-14.5) Platelet Count 33 x10^3/uL (140-400) Neutrophils (%) (Auto) 69 % (31-73) Lymphocytes (%) (Auto) 14 % (24-48) Monocytes (%) (Auto) 11 % (0-9) Eosinophils (%) (Auto) 4 % (0-3) Basophils (%) (Auto) 1 % (0-3) Neutrophils # (Auto) 1.8 x10^3/uL (1.8-7.7) Lymphocytes # (Auto) 0.4 x10^3/uL (1.0-4.8) Monocytes # (Auto) 0.3 x10^3/uL (0.0-1.1) Eosinophils # (Auto) 0.1 x10^3/uL (0.0-0.7) Basophils # (Auto) 0.0 x10^3/uL (0.0-0.2) Sodium Level 138 mmol/L (136-145) Potassium Level 3.5 mmol/L (3.5-5.1) Chloride Level 107 mmol/L (98-107) Carbon Dioxide Level 22 mmol/L (21-32) Anion Gap 9 (6-14) Blood Urea Nitrogen 23 mg/dL (8-26) Creatinine 1.8 mg/dL (0.7-1.3) Estimated GFR (Cockcroft-Gault) 39.8 Glucose Level 173 mg/dL (70-99) Calcium Level 7.8 mg/dL (8.5-10.1) Glucose (Fingerstick) 134 mg/dL (70-99) 173 mg/dL (70-99) 202 mg/dL (70-99) Test 11/18/18 20:01 11/19/18 04:10 11/19/18 07:37 Glucose (Fingerstick) 172 mg/dL (70-99) 196 mg/dL (70-99) White Blood Count 4.2 x10^3/uL (4.0-11.0) Red Blood Count 3.03 x10^6/uL (4.30-5.70) Hemoglobin 8.5 g/dL (13.0-17.5) Hematocrit 24.9 % (39.0-53.0) Mean Corpuscular Volume 82 fL (79-100) Mean Corpuscular Hemoglobin 28 pg (25-35) Mean Corpuscular Hemoglobin Concent 34 g/dL (31-37) Red Cell Distribution Width 15.6 % (11.5-14.5) Platelet Count 48 x10^3/uL (140-400) Sodium Level 141 mmol/L (136-145) Potassium Level 3.7 mmol/L (3.5-5.1) Chloride Level 107 mmol/L (98-107) Carbon Dioxide Level 24 mmol/L (21-32) Anion Gap 10 (6-14) Blood Urea Nitrogen 20 mg/dL (8-26) Creatinine 1.8 mg/dL (0.7-1.3) Estimated GFR (Cockcroft-Gault) 39.8 Glucose Level 139 mg/dL (70-99) Calcium Level 8.6 mg/dL (8.5-10.1) Phosphorus Level 4.2 mg/dL (2.6-4.7) Magnesium Level 1.2 mg/dL (1.8-2.4) Laboratory Tests Test 11/18/18 12:27 11/18/18 16:59 11/18/18 20:01 11/19/18 04:10 Glucose (Fingerstick) 173 mg/dL (70-99) 202 mg/dL (70-99) 172 mg/dL (70-99) White Blood Count 4.2 x10^3/uL (4.0-11.0) Red Blood Count 3.03 x10^6/uL (4.30-5.70) Hemoglobin 8.5 g/dL (13.0-17.5) Hematocrit 24.9 % (39.0-53.0) Mean Corpuscular Volume 82 fL (79-100) Mean Corpuscular Hemoglobin 28 pg (25-35) Mean Corpuscular Hemoglobin Concent 34 g/dL (31-37) Red Cell Distribution Width 15.6 % (11.5-14.5) Platelet Count 48 x10^3/uL (140-400) Sodium Level 141 mmol/L (136-145) Potassium Level 3.7 mmol/L (3.5-5.1) Chloride Level 107 mmol/L (98-107) Carbon Dioxide Level 24 mmol/L (21-32) Anion Gap 10 (6-14) Blood Urea Nitrogen 20 mg/dL (8-26) Creatinine 1.8 mg/dL (0.7-1.3) Estimated GFR (Cockcroft-Gault) 39.8 Glucose Level 139 mg/dL (70-99) Calcium Level 8.6 mg/dL (8.5-10.1) Phosphorus Level 4.2 mg/dL (2.6-4.7) Magnesium Level 1.2 mg/dL (1.8-2.4) Test 11/19/18 07:37 Glucose (Fingerstick) 196 mg/dL (70-99) Medications Current Medications Morphine Sulfate (Morphine Sulfate) 4 mg 1X ONCE IV Last administered on 11/16/18at 10:35; Start 11/16/18 at 09:45; Stop 11/16/18 at 09:50; Status DC Ondansetron HCl (Zofran) 4 mg 1X ONCE IV Last administered on 11/16/18at 10:35; Start 11/16/18 at 09:45; Stop 11/16/18 at 09:52; Status DC Magnesium Sulfate/ Dextrose 100 ml @ 100 mls/hr 1X ONCE IV Last administered on 11/16/18at 10:58; Start 11/16/18 at 10:45; Stop 11/16/18 at 11:44; Status DC Ondansetron HCl (Zofran) 4 mg PRN Q8HRS PRN IV NAUSEA/VOMITING; Start 11/16/18 at 11:00; Stop 11/17/18 at 10:59; Status DC Morphine Sulfate (Morphine Sulfate) 2 mg PRN Q2HR PRN IV PAIN Last administered on 11/17/18at 10:02; Start 11/16/18 at 11:00; Stop 11/17/18 at 10:59; Status DC Sodium Chloride 1,000 ml @ 75 mls/hr [id number] IV Last administered on 11/17/18at 04:03; Start 11/16/18 at 10:54; Stop 11/17/18 at 10:53; Status DC Amlodipine Besylate (Norvasc) 10 mg DAILY PO Last administered on 11/18/18at 09:10; Start 11/17/18 at 09:00 Ferrous Sulfate (Feosol) 325 mg DAILY PO Last administered on 11/18/18at 09:10; Start 11/17/18 at 09:00 Folic Acid (Folic Acid) 1 mg DAILY PO Last administered on 11/18/18 09:10; Start 11/17/18 at 09:00 Lactulose (Lactulose) 20 gm DAILY PO Last administered on 11/18/18 09:10; Start 11/17/18 at 09:00 Potassium Chloride (Klor-Con) 10 meq DAILY PO Last administered on 11/17/18 09:01; Start 11/17/18 at 09:00; Stop 11/18/18 at 08:53; Status DC Torsemide (Demadex) 20 mg DAILY PO Last administered on 11/18/18 09:10; Start 11/17/18 at 09:00 Trazodone HCl (Desyrel) 100 mg QHS PO Last administered on 11/18/18 21:32; Start 11/16/18 at 21:00 Pantoprazole Sodium (Protonix) 40 mg DAILYAC PO Last administered on 11/18/18 09:10; Start 11/17/18 at 07:30 Gabapentin (Neurontin) 300 mg TID PO Last administered on 11/18/18 21:32; Start 11/16/18 at 21:00 Non-Formulary Medication (Pantoprazole Sodium (Protonix)) 40 mg DAILY PO ; Start 11/17/18 at 09:00; Status UNV Bumetanide (Bumex) 1 mg 1X ONCE IV Last administered on 11/16/18 18:39; Start 11/16/18 at 17:15; Stop 11/16/18 at 17:19; Status DC Rifaximin (Xifaxan) 550 mg Q12HR PO Last administered on 11/18/18 21:32; Start 11/17/18 at 09:00 Lisinopril (Prinivil) 5 mg DAILY PO Last administered on 11/18/18 09:10; Start 11/17/18 at 09:00; Stop 11/18/18 at 12:48; Status DC Iron Sucrose 200 mg/Sodium Chloride 110 ml @ 55 mls/hr 1X ONCE IV Last administered on 11/17/18 14:41; Start 11/17/18 at 14:00; Stop 11/17/18 at 15:59; Status DC Bumetanide (Bumex) 2.5 mg 1X ONCE IV Last administered on 9/13/19at 17:45; Start 11/17/18 at 17:00; Stop 11/17/18 at 17:08; Status DC Morphine Sulfate (Morphine Sulfate) 2 mg PRN Q2HR PRN IV PAIN Last administered on 11/19/18at 06:16; Start 11/17/18 at 19:15 Furosemide (Lasix) 40 mg 1X ONCE IVP ; Start 11/18/18 at 14:00; Stop 11/18/18 at 14:01; Status Cancel Potassium Chloride (Klor-Con) 20 meq BID PO Last administered on 11/18/18at 21:32; Start 11/18/18 at 09:00 Metolazone (Zaroxolyn) 5 mg DAILY PO Last administered on 11/18/18at 13:57; Start 11/18/18 at 13:30; Stop 11/20/18 at 08:00 Albumin Human 100 ml @ 100 mls/hr 1X ONCE IV Last administered on 11/18/18at 13:57; Start 11/18/18 at 13:40; Stop 11/18/18 at 14:39; Status DC Furosemide (Lasix) 40 mg 1X ONCE IVP Last administered on 11/18/18at 13:57; Start 11/18/18 at 13:00; Stop 11/18/18 at 13:01; Status DC Furosemide (Lasix) 40 mg Q8HRS IVP Last administered on 11/19/18at 06:04; Start 11/18/18 at 14:00 Active Scripts Active Lactulose 20 Gm/30 Ml Solution 20 Gm PO DAILY 30 Days Reported Nexium Capsule (Esomeprazole Magnesium) 40 Mg Capsule.dr 1 Cap PO DAILY Trazodone Hcl 100 Mg Tablet 1 Tab PO QHS Potassium Chloride 10 Meq Tab.sr.24h 10 Meq PO DAILY Amlodipine Besylate 10 Mg Tablet 10 Mg PO DAILY Protonix (Pantoprazole Sodium) 20 Mg Tablet. 40 Mg PO DAILY Ferrous Sulfate 325 Mg Tablet 1 Tab PO DAILY Torsemide 20 Mg Tablet 1 Tab PO DAILY Gabapentin 600 Mg Tablet 300 Mg PO TID Folic Acid 1 Mg Tablet 1 Mg PO DAILY Vitals/I & O Vital Sign - Last 24 Hours 11/18/18 11/18/18 11/18/18 11/18/18 09:10 09:10 09:10 10:48 Pulse 94 94 B/P (MAP) 148/69 148/69 Pulse Ox 96 96 O2 Delivery Room Air Room Air 11/18/18 11/18/18 11/18/18 11/18/18 11:00 11:45 12:29 13:57 Temp 98.2 98.2 Pulse 100 Resp 16 B/P (MAP) 141/78 (99) Pulse Ox 95 96 96 96 O2 Delivery Room Air Room Air Room Air Room Air 11/18/18 11/18/18 11/18/18 11/18/18 15:00 16:26 17:23 19:00 Temp 98.1 98.9 98.1 98.9 Pulse 94 101 Resp 16 16 B/P (MAP) 149/73 (98) 149/72 (97) Pulse Ox 92 96 96 96 O2 Delivery Room Air Room Air Room Air Room Air 11/18/18 11/18/18 11/18/18 11/18/18 19:25 20:03 20:10 22:58 Temp 98.4 98.4 Pulse 95 Resp 18 16 B/P (MAP) 162/80 (107) Pulse Ox 96 96 94 O2 Delivery Room Air Room Air Room Air Room Air 11/19/18 11/19/18 11/19/18 11/19/18 02:13 02:46 04:12 04:16 Temp 98.0 98.0 Pulse 88 Resp 18 19 16 14 B/P (MAP) 147/74 (98) Pulse Ox 94 95 95 95 O2 Delivery Room Air Room Air Room Air Room Air 11/19/18 11/19/18 11/19/18 04:48 06:16 06:44 Temp 97.9 97.9 Pulse 96 Resp 18 17 B/P (MAP) 153/71 (98) Pulse Ox 95 95 94 O2 Delivery Room Air Room Air Room Air Intake and Output 11/18/18 11/18/18 11/19/18 14:59 22:59 06:59 Intake Total 240 ml 1050 ml Output Total 550 ml 150 ml Balance 240 ml -550 ml 900 ml JENNIFER NIEVES MD Nov 19, 2018 08:30
[2018-11-19] MEDS: LACTULOSE 20 GM/30 ML SOLUTION. PO SCH (08:32)
[2018-11-19] MEDS: POTASSIUM CHLORIDE 20 MEQ TABLET.ER. PO SCH ×2 (08:35→20:49)
[2018-11-19] MEDS: FERROUS SULFATE 325 MG TABLET. PO SCH (08:35)
[2018-11-19] MEDS: TORSEMIDE 20 MG TABLET. PO SCH (08:35)
[2018-11-19] MEDS: metOLazone 2.5 MG TABLET PO SCH (08:35)
[2018-11-19] MEDS: rifAXIMin 550 MG TABLET PO SCH ×2 (08:35→20:48)
[2018-11-19] MEDS: FOLIC ACID 1 MG TABLET. PO SCH (08:35)
[2018-11-19] MEDS: amLODIPine BESYLATE 10 MG TABLET PO SCH (08:36)
[2018-11-19] MEDS: GABAPENTIN 300 MG CAPSULE. PO SCH ×3 (08:36→20:49)
[2018-11-19] MEDS: PANTOPRAZOLE 40 MG TABLET.DR. PO SCH (08:36)
--- NOTE | 2018-11-19 08:54 | RAD ---
LIMITED ABDOMINAL DOPPLER History: TIPS Comparison: March 01, 2017 Findings: There is mild to moderate free fluid. There is patent TIPS. Velocities in centimeters per second are as follows: Portal end 124, mid aspect 247, hepatic end 238. (Previously portal end 214, mid aspect 265, hepatic end 186). Impression: 1. TIPS is patent, elevated velocities in the mid aspect and hepatic end. There is mild to moderate free fluid. Electronically signed by: Reese Duque MD (11/19/2018 8:51 AM) [facility]
[2018-11-19] MEDS ORDERED: ALBUMIN HUMAN 25% 100 ML IV ONE (09:00)
[2018-11-19] MEDS ORDERED: MAGNESIUM SULFATE 1GM 100 ML IV ONE (09:30)
[2018-11-19] MEDS: SPIRONOLACTONE 25 MG TABLET PO SCH ×2 (09:46→20:48)
[2018-11-19 11:00] VITALS: BP 156/80
--- NOTE | 2018-11-19 12:06 | PDOC ---
G I PROGRESS NOTE Subjective No specific complaints. Physical Exam Lungs clear. RRR Abdomen with ascites. Less LE edema. Review of Relevant I have reviewed the following items lexus (where applicable) has been applied. Labs Laboratory Tests Test 11/17/18 16:45 11/17/18 20:37 11/18/18 04:10 11/18/18 07:36 Glucose (Fingerstick) 208 mg/dL (70-99) 164 mg/dL (70-99) 134 mg/dL (70-99) White Blood Count 2.7 x10^3/uL (4.0-11.0) Red Blood Count 2.55 x10^6/uL (4.30-5.70) Hemoglobin 7.1 g/dL (13.0-17.5) Hematocrit 20.8 % (39.0-53.0) Mean Corpuscular Volume 82 fL (79-100) Mean Corpuscular Hemoglobin 28 pg (25-35) Mean Corpuscular Hemoglobin Concent 34 g/dL (31-37) Red Cell Distribution Width 15.1 % (11.5-14.5) Platelet Count 33 x10^3/uL (140-400) Neutrophils (%) (Auto) 69 % (31-73) Lymphocytes (%) (Auto) 14 % (24-48) Monocytes (%) (Auto) 11 % (0-9) Eosinophils (%) (Auto) 4 % (0-3) Basophils (%) (Auto) 1 % (0-3) Neutrophils # (Auto) 1.8 x10^3/uL (1.8-7.7) Lymphocytes # (Auto) 0.4 x10^3/uL (1.0-4.8) Monocytes # (Auto) 0.3 x10^3/uL (0.0-1.1) Eosinophils # (Auto) 0.1 x10^3/uL (0.0-0.7) Basophils # (Auto) 0.0 x10^3/uL (0.0-0.2) Sodium Level 138 mmol/L (136-145) Potassium Level 3.5 mmol/L (3.5-5.1) Chloride Level 107 mmol/L (98-107) Carbon Dioxide Level 22 mmol/L (21-32) Anion Gap 9 (6-14) Blood Urea Nitrogen 23 mg/dL (8-26) Creatinine 1.8 mg/dL (0.7-1.3) Estimated GFR (Cockcroft-Gault) 39.8 Glucose Level 173 mg/dL (70-99) Calcium Level 7.8 mg/dL (8.5-10.1) Test 11/18/18 12:27 11/18/18 16:59 11/18/18 20:01 11/19/18 04:10 Glucose (Fingerstick) 173 mg/dL (70-99) 202 mg/dL (70-99) 172 mg/dL (70-99) White Blood Count 4.2 x10^3/uL (4.0-11.0) Red Blood Count 3.03 x10^6/uL (4.30-5.70) Hemoglobin 8.5 g/dL (13.0-17.5) Hematocrit 24.9 % (39.0-53.0) Mean Corpuscular Volume 82 fL (79-100) Mean Corpuscular Hemoglobin 28 pg (25-35) Mean Corpuscular Hemoglobin Concent 34 g/dL (31-37) Red Cell Distribution Width 15.6 % (11.5-14.5) Platelet Count 48 x10^3/uL (140-400) Sodium Level 141 mmol/L (136-145) Potassium Level 3.7 mmol/L (3.5-5.1) Chloride Level 107 mmol/L (98-107) Carbon Dioxide Level 24 mmol/L (21-32) Anion Gap 10 (6-14) Blood Urea Nitrogen 20 mg/dL (8-26) Creatinine 1.8 mg/dL (0.7-1.3) Estimated GFR (Cockcroft-Gault) 39.8 Glucose Level 139 mg/dL (70-99) Calcium Level 8.6 mg/dL (8.5-10.1) Phosphorus Level 4.2 mg/dL (2.6-4.7) Magnesium Level 1.2 mg/dL (1.8-2.4) Test 11/19/18 07:37 11/19/18 11:08 Glucose (Fingerstick) 196 mg/dL (70-99) 255 mg/dL (70-99) Laboratory Tests Test 11/18/18 12:27 11/18/18 16:59 11/18/18 20:01 11/19/18 04:10 Glucose (Fingerstick) 173 mg/dL (70-99) 202 mg/dL (70-99) 172 mg/dL (70-99) White Blood Count 4.2 x10^3/uL (4.0-11.0) Red Blood Count 3.03 x10^6/uL (4.30-5.70) Hemoglobin 8.5 g/dL (13.0-17.5) Hematocrit 24.9 % (39.0-53.0) Mean Corpuscular Volume 82 fL (79-100) Mean Corpuscular Hemoglobin 28 pg (25-35) Mean Corpuscular Hemoglobin Concent 34 g/dL (31-37) Red Cell Distribution Width 15.6 % (11.5-14.5) Platelet Count 48 x10^3/uL (140-400) Sodium Level 141 mmol/L (136-145) Potassium Level 3.7 mmol/L (3.5-5.1) Chloride Level 107 mmol/L (98-107) Carbon Dioxide Level 24 mmol/L (21-32) Anion Gap 10 (6-14) Blood Urea Nitrogen 20 mg/dL (8-26) Creatinine 1.8 mg/dL (0.7-1.3) Estimated GFR (Cockcroft-Gault) 39.8 Glucose Level 139 mg/dL (70-99) Calcium Level 8.6 mg/dL (8.5-10.1) Phosphorus Level 4.2 mg/dL (2.6-4.7) Magnesium Level 1.2 mg/dL (1.8-2.4) Test 11/19/18 07:37 11/19/18 11:08 Glucose (Fingerstick) 196 mg/dL (70-99) 255 mg/dL (70-99) Vitals/I & O Vital Sign - Last 24 Hours 11/18/18 11/18/18 11/18/18 11/18/18 12:29 13:57 15:00 16:26 Temp 98.1 98.1 Pulse 94 Resp 16 B/P (MAP) 149/73 (98) Pulse Ox 96 96 92 96 O2 Delivery Room Air Room Air Room Air Room Air 11/18/18 11/18/18 11/18/18 11/18/18 17:23 19:00 19:25 20:03 Temp 98.9 98.9 Pulse 101 Resp 16 18 B/P (MAP) 149/72 (97) Pulse Ox 96 96 96 96 O2 Delivery Room Air Room Air Room Air Room Air 11/18/18 11/18/18 11/19/18 11/19/18 20:10 22:58 02:13 02:46 Temp 98.4 98.0 98.4 98.0 Pulse 95 88 Resp 16 18 19 B/P (MAP) 162/80 (107) 147/74 (98) Pulse Ox 94 94 95 O2 Delivery Room Air Room Air Room Air Room Air 11/19/18 11/19/18 11/19/18 11/19/18 04:12 04:16 04:48 06:16 Resp 16 18 Pulse Ox 95 95 95 95 O2 Delivery Room Air Room Air Room Air Room Air 11/19/18 11/19/18 11/19/18 11/19/18 06:44 08:00 08:42 08:42 Temp 97.9 97.9 Pulse 96 96 Resp 17 B/P (MAP) 153/71 (98) 153/71 Pulse Ox 94 94 O2 Delivery Room Air Room Air Room Air 11/19/18 09:50 O2 Delivery Room Air Intake and Output 11/18/18 11/18/18 11/19/18 15:00 23:00 07:00 Intake Total 240 ml 1050 ml Output Total 550 ml 150 ml Balance 240 ml -550 ml 900 ml Images TIPS patent. Problem List Problems Medical Problems: (1) TEJAS (acute kidney injury) Status: Acute (2) Anemia Status: Acute (3) CHF exacerbation Status: Acute (4) Hyperammonemia Status: Acute (5) Hypomagnesemia Status: Acute Assessment Ascites/anasarca, improved. Cirrhosis, pulm HTN may both contribute. Plan of Care Note Diurese per renal service. Will stand by. Continue chronic PPI, iron. JENNIFER VÁZQUEZ MD Nov 19, 2018 12:05
--- NOTE | 2018-11-19 12:49 | PDOC ---
Renal-Progress Notes Subjective Notes Notes LESS SOB History of Present Illness Hx of present illness STABLE Vitals Vitals Vital Signs Date Time Temp Pulse Resp B/P (MAP) Pulse Ox O2 Delivery O2 Flow Rate FiO2 11/19/18 11:00 98.6 98 20 156/80 (105) 93 Room Air 98.6 Weight Weight [ ] I.O. Intake and Output Intake and Output 11/19/18 07:00 Intake Total 1290 ml Output Total 700 ml Balance 590 ml Intake Oral 1290 ml Output Urine Total 700 ml Labs Labs Laboratory Tests Test 11/18/18 16:59 11/18/18 20:01 11/19/18 04:10 11/19/18 07:37 Glucose (Fingerstick) 202 mg/dL (70-99) 172 mg/dL (70-99) 196 mg/dL (70-99) White Blood Count 4.2 x10^3/uL (4.0-11.0) Red Blood Count 3.03 x10^6/uL (4.30-5.70) Hemoglobin 8.5 g/dL (13.0-17.5) Hematocrit 24.9 % (39.0-53.0) Mean Corpuscular Volume 82 fL (79-100) Mean Corpuscular Hemoglobin 28 pg (25-35) Mean Corpuscular Hemoglobin Concent 34 g/dL (31-37) Red Cell Distribution Width 15.6 % (11.5-14.5) Platelet Count 48 x10^3/uL (140-400) Sodium Level 141 mmol/L (136-145) Potassium Level 3.7 mmol/L (3.5-5.1) Chloride Level 107 mmol/L (98-107) Carbon Dioxide Level 24 mmol/L (21-32) Anion Gap 10 (6-14) Blood Urea Nitrogen 20 mg/dL (8-26) Creatinine 1.8 mg/dL (0.7-1.3) Estimated GFR (Cockcroft-Gault) 39.8 Glucose Level 139 mg/dL (70-99) Calcium Level 8.6 mg/dL (8.5-10.1) Phosphorus Level 4.2 mg/dL (2.6-4.7) Magnesium Level 1.2 mg/dL (1.8-2.4) Test 11/19/18 11:08 Glucose (Fingerstick) 255 mg/dL (70-99) Review of Systems Constitutional: yes: alert, oriented Ears/Nose/Throat: Yes: no symptom reported Eyes: Yes: no symptom reported Pulmonary: Yes no symptom reported Cardiovascular: Yes edema Gastrointestional: Yes: nausea Musculoskeletal: Yes: muscle stiffness Skin: Yes lesions Psychiatric/Neurological: Yes: no symptom reported Endocrine: Yes: no symptom reported Physical Exam General Appearance: no apparent distress Skin: warm Respiratory: decreased breath sounds Heart: S1S2 Abdomen: soft, bowel sounds present Genitourinary: bladder flat Extremities: pulses present, edema Neurology: alert, oriented Musculoskeletal: Osteoarthritis Assessment Assessment MP TEJAS WITH CR DOWN TO 1.8 CKD STAGE 3 WITH CR OF 1.3-1.8 CIRRHOSIS WITH HX OF PSE, TIPS AND VARICEAL BANDING ANEMIA WITH IRON DEFICIENCY ACUTE CHF-DIASTOLIC, HYPERVOLEMIA STATE MALIGNANT HTN-PARTLY VOLUME DEPENDENT LOW MAG PLAN REPLACE MAG IV DIURETICS CONT PO METOLAZONE IV ALBUMIN CHECK TIPS PATENCY IV IRON D/C LISINOPRIL WILL FOLLOW MIREYA SUAREZ MD Nov 19, 2018 12:49
[2018-11-19 15:00] VITALS: BP 157/80
[2018-11-19 19:00] VITALS: BP 150/82
[2018-11-19] MEDS: traZODone 100 MG TABLET. PO SCH (20:49)
[2018-11-19 23:00] VITALS: BP 132/69
[2018-11-20] MEDS: MORPHINE SULFATE 2 MG/ML VIAL. IV PRN ×4 (02:09→11:29)
[2018-11-20 03:00] VITALS: BP 156/81
[2018-11-20] MEDS: FUROSEMIDE 40 MG/4 ML VIAL. IVP SCH ×3 (06:19→20:35)
[2018-11-20 07:30] VITALS: BP 161/81
[2018-11-20 08:19] LABS: CALCIUM 8.5 mg/dL (8.5-10.1); CREATININE 1.8 mg/dL (0.7-1.3); GFR 39.8; MAGNESIUM 1.1 mg/dL (1.8-2.4); POTASSIUM 3.8 mmol/L (3.5-5.1)
[2018-11-20] MEDS ORDERED: MAGNESIUM SULFATE 4GM 100 ML IV ONE (09:00)
[2018-11-20] MEDS: LACTULOSE 20 GM/30 ML SOLUTION. PO SCH ×3 (09:29→20:34)
[2018-11-20] MEDS: POTASSIUM CHLORIDE 20 MEQ TABLET.ER. PO SCH ×2 (09:31→20:36)
[2018-11-20] MEDS: rifAXIMin 550 MG TABLET PO SCH ×2 (09:32→20:35)
[2018-11-20] MEDS: FOLIC ACID 1 MG TABLET. PO SCH (09:32)
[2018-11-20] MEDS: SPIRONOLACTONE 25 MG TABLET PO SCH ×2 (09:32→20:35)
[2018-11-20] MEDS: PANTOPRAZOLE 40 MG TABLET.DR. PO SCH (09:33)
[2018-11-20] MEDS: FERROUS SULFATE 325 MG TABLET. PO SCH (09:33)
[2018-11-20] MEDS: amLODIPine BESYLATE 10 MG TABLET PO SCH (09:33)
[2018-11-20] MEDS: GABAPENTIN 300 MG CAPSULE. PO SCH ×3 (09:33→20:36)
[2018-11-20] MEDS: TORSEMIDE 20 MG TABLET. PO SCH (09:34)
--- NOTE | 2018-11-20 09:56 | PDOC ---
SUBJECTIVE ROS Stable, states has noticed increase in UOP. c/O Constipation OBJECTIVE Vital Signs Vital Signs Date Time Temp Pulse Resp B/P (MAP) Pulse Ox O2 Delivery O2 Flow Rate FiO2 11/20/18 07:30 97.7 93 18 161/81 (107) 97 Room Air 97.7 I & 0 Intake and Output 11/20/18 07:00 Intake Total 2545 ml Output Total 2980 ml Balance -435 ml Intake Oral 2545 ml Output Urine Total 2980 ml # Voids 3 PHYSICAL EXAM Physical Exam GEN.: No apparent distress. HEENT: OM moist NECK: Supple. LUNGS: Clear to auscultation. HEART: RRR, S1, S2 present. ABDOMEN: Soft, nontender. ascites present. EXTREMITIES: 2-3+ edema of lower extremities NEUROLOGIC: Grossly normal SKIN: No rash DIAGNOSIS/ASSESSMENT Assessment & Plan TEJAS - Cr stable at 1.8 now \ Holding Lisinopril CKD stage 3 - Baseline per chart review 1.3-1.8 Cirrhosis - Hx of PSE, TIPS and variceal bleeding Per GI Anemia - Stable Recd IV Fe x 1 Acute CHF -Diastolic On IV Lasix , Aldactone - continue Was on Metolazone as well- dced per PCP Med list shows PO Torsemide as well - recommend dc On Dc can be switched to PO Torsemide Malignant HTN HypoMg- Replace as indicated COMMENT/RELEVANT DATA Meds Current Medications Medications (Trade) Dose Ordered Sig/Kodak Start Time Stop Time Status Last Admin Dose Admin Albumin Human 100 ml @ 100 mls/hr 1X ONCE 11/19/18 09:00 11/19/18 09:59 DC 11/19/18 09:50 100 MLS/HR Amlodipine Besylate (Norvasc) 10 mg DAILY 11/17/18 09:00 11/19/18 08:42 10 MG Bumetanide (Bumex) 2.5 mg 1X ONCE 11/17/18 17:00 11/17/18 17:08 DC 11/17/18 17:45 2.5 MG Ferrous Sulfate (Feosol) 325 mg DAILY 11/17/18 09:00 11/19/18 08:42 325 MG Folic Acid (Folic Acid) 1 mg DAILY 11/17/18 09:00 11/19/18 08:42 1 MG Furosemide (Lasix) 40 mg Q8HRS 11/18/18 14:00 11/20/18 06:19 40 MG Gabapentin (Neurontin) 300 mg TID 11/16/18 21:00 11/19/18 20:51 300 MG Iron Sucrose 200 mg/Sodium Chloride 110 ml @ 55 mls/hr 1X ONCE 11/17/18 14:00 11/17/18 15:59 DC 11/17/18 14:41 55 MLS/HR Lactulose (Lactulose) 20 gm DAILY 11/17/18 09:00 11/19/18 08:42 20 GM Lisinopril (Prinivil) 5 mg DAILY 11/17/18 09:00 11/18/18 12:48 DC 11/18/18 09:10 5 MG Magnesium Sulfate 100 ml @ 25 mls/hr 1X ONCE 11/20/18 09:00 11/20/18 12:59 Magnesium Sulfate/ Dextrose 100 ml @ 100 mls/hr 1X ONCE 11/19/18 09:30 11/19/18 10:29 DC 11/19/18 09:50 100 MLS/HR Metolazone (Zaroxolyn) 5 mg DAILY 11/18/18 13:30 11/20/18 08:19 DC 11/19/18 08:42 5 MG Morphine Sulfate (Morphine Sulfate) 2 mg PRN Q2HR PRN 11/17/18 19:15 11/20/18 04:36 2 MG Non-Formulary Medication (Pantoprazole Sodium (Protonix)) 40 mg DAILY 11/17/18 09:00 UNV Ondansetron HCl (Zofran) 4 mg PRN Q8HRS PRN 11/16/18 11:00 11/17/18 10:59 DC Pantoprazole Sodium (Protonix) 40 mg DAILYAC 11/17/18 07:30 11/19/18 08:42 40 MG Potassium Chloride (Klor-Con) 20 meq BID 11/18/18 09:00 11/19/18 20:51 20 MEQ Rifaximin (Xifaxan) 550 mg Q12HR 11/17/18 09:00 11/19/18 20:51 550 MG Sodium Chloride 1,000 ml @ 75 mls/hr [id number] 11/16/18 10:54 11/17/18 10:53 DC 11/17/18 04:03 75 MLS/HR Spironolactone (Aldactone) 50 mg BID 11/19/18 09:00 11/19/18 20:51 50 MG Torsemide (Demadex) 20 mg DAILY 11/17/18 09:00 11/19/18 08:42 20 MG Trazodone HCl (Desyrel) 100 mg QHS 11/16/18 21:00 11/19/18 20:51 100 MG Lab Laboratory Tests Test 11/19/18 11:08 11/19/18 17:48 11/19/18 21:01 11/20/18 07:22 Glucose (Fingerstick) 255 mg/dL (70-99) 180 mg/dL (70-99) 177 mg/dL (70-99) Sodium Level 138 mmol/L (136-145) Potassium Level 3.8 mmol/L (3.5-5.1) Chloride Level 103 mmol/L (98-107) Carbon Dioxide Level 27 mmol/L (21-32) Anion Gap 8 (6-14) Blood Urea Nitrogen 16 mg/dL (8-26) Creatinine 1.8 mg/dL (0.7-1.3) Estimated GFR (Cockcroft-Gault) 39.8 Glucose Level 152 mg/dL (70-99) Calcium Level 8.5 mg/dL (8.5-10.1) Magnesium Level 1.1 mg/dL (1.8-2.4) Test 11/20/18 07:44 Glucose (Fingerstick) 148 mg/dL (70-99) Results All relevant outside records, renal labs, imaging studies, telemetry/EKG's were reviewed. MERLY BERGER MD Nov 20, 2018 09:56
--- NOTE | 2018-11-20 10:32 | PDOC ---
Subjective: Subjective: Tolerating PO but doesn't think he's stooling enough, even w/ lactulose - small stool yesterday. Urinating more - thinks maybe a little less swelling in abdomen and legs. Objective: Vital Signs: Vital Signs Date Time Temp Pulse Resp B/P (MAP) Pulse Ox O2 Delivery O2 Flow Rate FiO2 11/20/18 10:05 16 Room Air 11/20/18 09:34 93 161/81 11/20/18 07:30 97.7 97 97.7 Labs: Laboratory Tests Test 11/19/18 11:08 11/19/18 17:48 11/19/18 21:01 11/20/18 07:22 Glucose (Fingerstick) 255 mg/dL 180 mg/dL 177 mg/dL Sodium Level 138 mmol/L Potassium Level 3.8 mmol/L Chloride Level 103 mmol/L Carbon Dioxide Level 27 mmol/L Anion Gap 8 Blood Urea Nitrogen 16 mg/dL Creatinine 1.8 mg/dL Estimated GFR (Cockcroft-Gault) 39.8 Glucose Level 152 mg/dL Calcium Level 8.5 mg/dL Magnesium Level 1.1 mg/dL Test 11/20/18 07:44 Glucose (Fingerstick) 148 mg/dL PE: GEN: NAD, sittin on edge of bed LUNGS: room air ABD: some distention EXTREM: BLE pitting edema NEURO/PSYCH: A & O �3 A/P: Ascites/anasarca - h/o alcoholic cirrhosis s/p TIPS (patent), normal AFP on 11/09 TEJAS Chronic pancytopenia/MARIELA ?constipation -- Diuretics per nephrology. Continue iron and PPI. Increase lactulose frequency. BEBO KWOK Nov 20, 2018 10:32
[2018-11-20] MEDS ORDERED: BISACODYL 5 MG TABLET.DR. PO PRN (10:45)
[2018-11-20 11:34] VITALS: BP 140/67
[2018-11-20] MEDS ORDERED: MORPHINE SULFATE 2 MG/ML VIAL. IV PRN (13:45)
[2018-11-20] MEDS: traMADol 50 MG TABLET PO PRN ×2 (14:12→20:36)
--- NOTE | 2018-11-20 14:57 | NUR ---
SW following pt. Pt seen by Lymphedema OT and recommends home independent with a Follow-up with Lymphedema Clinic. Pt might benefit from skilled home health upon dc if ordered by Physician.
[2018-11-20 15:33] VITALS: BP 145/77
--- NOTE | 2018-11-20 16:26 | CARD ---
MR#: [id number] Date of Study: 11/20/2018 Ordering Physician: JENNIFER NIEVES, Referring Physician: JENNIFER NIEVES, Tech: Izzy Juarez JAE APPROVED REPORT EXAM: Two-dimensional and M-mode echocardiogram with Doppler and color Doppler. Other Information Quality : AverageHR: 90bpm Rhythm : NSR INDICATION PHTN 2D DIMENSIONS RVDd4.0 (2.9-3.5cm)Left Atrium(2D)4.5 (1.6-4.0cm) IVSd1.2 (0.7-1.1cm)Aortic Root(2D)2.6 (2.0-3.7cm) LVDd5.5 (3.9-5.9cm)LVOT Diameter2.1 (1.8-2.4cm) PWd1.0 (0.7-1.1cm)LVDs3.4 (2.5-4.0cm) FS (%) 38.1 %SV100.0 ml M-Mode DIMENSIONS Left Atrium(MM)4.15 (2.5-4.0cm)Aortic Root3.16 (2.2-3.7cm) Aortic Valve AoV Peak Seferino.203.8cm/sAoV VTI36.0cm AO Peak GR.16.6mmHgLVOT VTI 24.80cm AO Mean GR.7mmHgAVA (VTI)2.40cm2 Mitral Valve MV E Yrecdfmf93.5cm/sMV DECEL LXOF386xr MV A Creihfgv345.0cm/sE/A Ratio0.8 MV A Qlspqfyv596dl TDI Lateral E' P. V15.51cm/sMedial E' P. V11.13cm/s E/Lateral E'6.0E/Medial E'8.4 Tricuspid Valve TR P. Jvcciggp271hw/sRAP ALKYHRAV1snWc TR Peak Gr.16jpPiALQP01skRb LEFT VENTRICLE The left ventricle is normal size. There is mild concentric left ventricular hypertrophy. The left ve ntricular systolic function is normal and the ejection fraction is within normal range. The Ejection Fraction is 60-65%. There is normal LV segmental wall motion. Transmitral Doppler flow pattern is Gra de I-abnormal relaxation pattern. RIGHT VENTRICLE The right ventricle is mildly dilated. There is normal right ventricular wall thickness. The right ve ntricular systolic function is normal. ATRIA The left atrium is mildly dilated. The right atrium is mildly dilated. The interatrial septum is inta ct with no evidence for an atrial septal defect or patent foramen ovale as noted on 2-D or Doppler im aging. AORTIC VALVE The aortic valve is normal in structure and function. The aortic valve is trileaflet. Doppler and Col or Flow revealed no significant aortic regurgitation. There is no significant aortic valvular stenosi s. There is no aortic valvular vegetation. MITRAL VALVE The mitral valve is thickened but opens well. There is no evidence of mitral valve prolapse. There is no mitral valve stenosis. Doppler and Color-flow revealed mild mitral regurgitation. TRICUSPID VALVE The tricuspid valve is normal in structure and function. Doppler and Color Flow revealed mild tricusp id regurgitation. The PA pressure was estimated at 52 mmHg. There is no tricuspid valve prolapse or v egetation. There is no tricuspid valve stenosis. PULMONIC VALVE The pulmonic valve is not well visualized. GREAT VESSELS The aortic root is normal in size. The ascending aorta is normal in size. The IVC is normal in size a nd collapses <50% with inspiration. PERICARDIAL EFFUSION There is no evidence of significant pericardial effusion. Critical Notification Critical Value: No <Conclusion> The left ventricle is normal size. The left ventricular systolic function is normal and the ejection fraction is within normal range. The Ejection Fraction is 60-65%. There is mild concentric left ventricular hypertrophy. There is no significant aortic valvular stenosis. Doppler and Color Flow revealed no significant aortic regurgitation. Doppler and Color-flow revealed mild mitral regurgitation. Doppler and Color Flow revealed mild tricuspid regurgitation. The PA pressure was estimated at 52 mmHg. Signed by : Nikunj Muñoz MD Electronically Approved : 11/20/2018 16:26:42
--- NOTE | 2018-11-20 17:35 | PDOC ---
PROGRESS NOTES Subjective He is still diuresing, magnesium low and being replaced IV Objective Afebrile General: laying flat with feet elevated Heart: RRR Lungs: clear anteriorly Abd: ascites present Ext: anasarca present but improved edema of legs Vital Signs Vital Signs Date Time Temp Pulse Resp B/P (MAP) Pulse Ox O2 Delivery O2 Flow Rate FiO2 11/20/18 16:15 16 Room Air 11/20/18 15:33 98.1 93 145/77 (99) 97 98.1 I & O Intake and Output 11/20/18 07:00 Intake Total 2545 ml Output Total 2980 ml Balance -435 ml Intake Oral 2545 ml Output Urine Total 2980 ml # Voids 3 Assessment and Plan Anasarca - improving with IV diuresis and IV albumin Hepatorenal syndrome - TIPS functioning per sono Acute on chronic renal failure - stable creatinine at 1.8 Liver failure ascites - doubt paracentesis would be helpful Pulm HTN Pancytopenia ETOH cirrhosis with hx TIPs Hepatic encephalopathy - resolved GERD Cholelithiasis hypomagnesemia - replace IV and monitor Pedro BARRETT MD Nov 20, 2018 17:35
[2018-11-20 19:54] VITALS: BP 151/73
[2018-11-20] MEDS: traZODone 100 MG TABLET. PO SCH (20:36)
[2018-11-20 23:49] VITALS: BP 133/70
[2018-11-21] MEDS: traMADol 50 MG TABLET PO PRN ×4 (02:35→20:36)
[2018-11-21 03:30] VITALS: BP 122/83
[2018-11-21 05:00] LABS: CALCIUM 8.9 mg/dL (8.5-10.1); CREATININE 1.7 mg/dL (0.7-1.3); GFR 42.5; MAGNESIUM 1.6 mg/dL (1.8-2.4); POTASSIUM 4.2 mmol/L (3.5-5.1)
[2018-11-21] MEDS: FUROSEMIDE 40 MG/4 ML VIAL. IVP SCH ×3 (06:11→20:37)
[2018-11-21 07:46] VITALS: BP 154/73
[2018-11-21] MEDS: LACTULOSE 20 GM/30 ML SOLUTION. PO SCH ×2 (08:43→20:41)
[2018-11-21] MEDS: PANTOPRAZOLE 40 MG TABLET.DR. PO SCH (08:44)
[2018-11-21] MEDS: FERROUS SULFATE 325 MG TABLET. PO SCH (08:44)
[2018-11-21] MEDS: rifAXIMin 550 MG TABLET PO SCH ×2 (08:44→20:36)
[2018-11-21] MEDS: amLODIPine BESYLATE 10 MG TABLET PO SCH (08:45)
[2018-11-21] MEDS: FOLIC ACID 1 MG TABLET. PO SCH (08:45)
[2018-11-21] MEDS: GABAPENTIN 300 MG CAPSULE. PO SCH ×3 (08:45→20:36)
[2018-11-21] MEDS: SPIRONOLACTONE 25 MG TABLET PO SCH ×2 (08:45→20:36)
[2018-11-21] MEDS: POTASSIUM CHLORIDE 20 MEQ TABLET.ER. PO SCH ×2 (08:45→20:36)
--- NOTE | 2018-11-21 09:45 | PDOC ---
SUBJECTIVE ROS Stable, no new concerns voiced by Pt/RN OBJECTIVE Vital Signs Vital Signs Date Time Temp Pulse Resp B/P (MAP) Pulse Ox O2 Delivery O2 Flow Rate FiO2 11/21/18 08:46 84 154/73 11/21/18 08:46 Room Air 11/21/18 07:46 98.3 16 96 98.3 I & 0 Intake and Output 11/21/18 06:59 Intake Total 1180 ml Output Total 1075 ml Balance 105 ml Intake Oral 1180 ml Output Urine Total 1075 ml # Voids 5 # Bowel Movements 1 PHYSICAL EXAM Physical Exam GEN.: No apparent distress. HEENT: OM moist NECK: Supple. LUNGS: Clear to auscultation. HEART: RRR, S1, S2 present. ABDOMEN: Soft, nontender. ascites present. EXTREMITIES: 2-3+ edema of lower extremities NEUROLOGIC: Grossly normal SKIN: No rash DIAGNOSIS/ASSESSMENT Assessment & Plan TEJAS - Cr stable at 1.7 Holding Lisinopril , Torsemide dced yesterday HypoK- Normal K on PO KCL Cirrhosis - Hx of PSE, TIPS and variceal bleeding Per GI Anemia -per primary Recd IV Fe x 1 Acute CHF -Diastolic On IV Lasix , Aldactone - continue Was getting Torsemide along with lasix, dced on 11/20 Can be switched to PO Torsemide when ready for discharge Malignant HTN HypoMg- Replace as indicated COMMENT/RELEVANT DATA Meds Current Medications Medications (Trade) Dose Ordered Sig/Kodka Start Time Stop Time Status Last Admin Dose Admin Albumin Human 100 ml @ 100 mls/hr 1X ONCE 11/19/18 09:00 11/19/18 09:59 DC 11/19/18 09:50 100 MLS/HR Amlodipine Besylate (Norvasc) 10 mg DAILY 11/17/18 09:00 11/21/18 08:46 10 MG Bisacodyl (Dulcolax Tab) 5 mg PRN DAILY PRN 11/20/18 10:45 Bumetanide (Bumex) 2.5 mg 1X ONCE 11/17/18 17:00 11/17/18 17:08 DC 11/17/18 17:45 2.5 MG Ferrous Sulfate (Feosol) 325 mg DAILY 11/17/18 09:00 11/21/18 08:46 325 MG Folic Acid (Folic Acid) 1 mg DAILY 11/17/18 09:00 11/21/18 08:46 1 MG Furosemide (Lasix) 40 mg Q8HRS 11/18/18 14:00 11/21/18 06:11 40 MG Gabapentin (Neurontin) 300 mg TID 11/16/18 21:00 11/21/18 08:46 300 MG Iron Sucrose 200 mg/Sodium Chloride 110 ml @ 55 mls/hr 1X ONCE 11/17/18 14:00 11/17/18 15:59 DC 11/17/18 14:41 55 MLS/HR Lactulose (Lactulose) 20 gm BID 11/20/18 10:45 11/21/18 08:46 20 GM Lisinopril (Prinivil) 5 mg DAILY 11/17/18 09:00 11/18/18 12:48 DC 11/18/18 09:10 5 MG Magnesium Sulfate 100 ml @ 25 mls/hr 1X ONCE 11/20/18 09:00 11/20/18 12:59 DC 11/20/18 10:05 25 MLS/HR Magnesium Sulfate/ Dextrose 100 ml @ 100 mls/hr 1X ONCE 11/19/18 09:30 11/19/18 10:29 DC 11/19/18 09:50 100 MLS/HR Metolazone (Zaroxolyn) 5 mg DAILY 11/18/18 13:30 11/20/18 08:19 DC 11/19/18 08:42 5 MG Morphine Sulfate (Morphine Sulfate) 2 mg PRN Q4HRS PRN 11/20/18 13:45 Non-Formulary Medication (Pantoprazole Sodium (Protonix)) 40 mg DAILY 11/17/18 09:00 UNV Ondansetron HCl (Zofran) 4 mg PRN Q8HRS PRN 11/16/18 11:00 11/17/18 10:59 DC Pantoprazole Sodium (Protonix) 40 mg DAILYAC 11/17/18 07:30 11/21/18 08:46 40 MG Potassium Chloride (Klor-Con) 20 meq BID 11/18/18 09:00 11/21/18 08:46 20 MEQ Rifaximin (Xifaxan) 550 mg Q12HR 11/17/18 09:00 11/21/18 08:46 550 MG Sodium Chloride 1,000 ml @ 75 mls/hr [id number] 11/16/18 10:54 11/17/18 10:53 DC 11/17/18 04:03 75 MLS/HR Spironolactone (Aldactone) 50 mg BID 11/19/18 09:00 11/21/18 08:46 50 MG Torsemide (Demadex) 20 mg DAILY 11/17/18 09:00 11/20/18 10:25 DC 11/20/18 09:34 20 MG Tramadol HCl (Ultram) 50 mg PRN Q6HRS PRN 11/20/18 13:45 11/21/18 08:46 50 MG Trazodone HCl (Desyrel) 100 mg QHS 11/16/18 21:00 11/20/18 20:36 100 MG Lab Laboratory Tests Test 11/20/18 11:53 11/20/18 16:39 11/20/18 20:34 11/21/18 03:55 Glucose (Fingerstick) 238 mg/dL (70-99) 210 mg/dL (70-99) 225 mg/dL (70-99) Sodium Level 137 mmol/L (136-145) Potassium Level 4.2 mmol/L (3.5-5.1) Chloride Level 101 mmol/L (98-107) Carbon Dioxide Level 29 mmol/L (21-32) Anion Gap 7 (6-14) Blood Urea Nitrogen 19 mg/dL (8-26) Creatinine 1.7 mg/dL (0.7-1.3) Estimated GFR (Cockcroft-Gault) 42.5 Glucose Level 137 mg/dL (70-99) Calcium Level 8.9 mg/dL (8.5-10.1) Magnesium Level 1.6 mg/dL (1.8-2.4) Test 11/21/18 07:31 Glucose (Fingerstick) 186 mg/dL (70-99) Results All relevant outside records, renal labs, imaging studies, telemetry/EKG's were reviewed. MERLY BERGER MD Nov 21, 2018 09:44
[2018-11-21 11:22] VITALS: BP 155/80
--- NOTE | 2018-11-21 11:40 | PDOC ---
Subjective: Subjective: Feels better today - tolerating diet, stooled more w/ lactulose, thinks less swollen. Objective: Vital Signs: Vital Signs Date Time Temp Pulse Resp B/P (MAP) Pulse Ox O2 Delivery O2 Flow Rate FiO2 11/21/18 11:22 98.1 87 18 155/80 (105) 100 Room Air 98.1 Labs: Laboratory Tests Test 11/20/18 11:53 11/20/18 16:39 11/20/18 20:34 11/21/18 07:31 Glucose (Fingerstick) 238 mg/dL (70-99) 210 mg/dL (70-99) 225 mg/dL (70-99) 186 mg/dL (70-99) PE: GEN: NAD LUNGS: productive cough ABD: less distention/tightness EXTREMITY: BLE pitting edema - better NEURO/PSYCH: A & O �3 A/P: Ascites/anasarca - h/o alcoholic cirrhosis s/p TIPS Chronic pancytopenia/MARIELA -- Continue per nephrology. BEBO KWOK Nov 21, 2018 11:40
[2018-11-21] MEDS ORDERED: MAGNESIUM SULFATE 2GM 50 ML IV ONE (12:30)
[2018-11-21] MEDS ORDERED: DEXTROSE 50% 25 GM / 50ML DISP.SYRIN. IV PRN (12:45)
[2018-11-21] MEDS ORDERED: IV DEXTROSE 5% 250 ML BAG. IV PRN (12:45)
[2018-11-21 15:25] VITALS: BP 142/67
[2018-11-21] MEDS: INSULIN LISPRO 300 UNITS/3 ML VIAL. SQ SCH (16:59)
--- NOTE | 2018-11-21 17:08 | PDOC ---
PROGRESS NOTES Subjective His sugars have been elevated, eating well, continues to diurese with IV lasix, renal function stable, Mg low and still needs replacement Objective Afebrile General: c/o leg pain, tramadol helps Heart: RRR Lungs: clear Abd: ascites and anasarca still present but improving Ext: improvement tin pitting edema M.6 Creat: 1.7 Hgb increasing after iron infusion Vital Signs Vital Signs Date Time Temp Pulse Resp B/P (MAP) Pulse Ox O2 Delivery O2 Flow Rate FiO2 11/21/18 15:25 98.4 86 18 142/67 (92) 96 Room Air 98.4 I & O Intake and Output 11/21/18 07:00 Intake Total 1180 ml Output Total 1075 ml Balance 105 ml Intake Oral 1180 ml Output Urine Total 1075 ml # Voids 5 # Bowel Movements 1 Assessment and Plan Problems Medical Problems: (1) TEJAS (acute kidney injury) Status: Acute (2) Anemia Status: Acute (3) CHF exacerbation Status: Acute (4) Hyperammonemia Status: Acute (5) Hypomagnesemia Status: Acute Anasarca - improving with IV diuresis and IV albumin Hepatorenal syndrome - TIPS functioning per sono Acute on chronic renal failure - stable creatinine at 1.8 Liver failure ascites - doubt paracentesis would be helpful Pulm HTN Pancytopenia ETOH cirrhosis with hx TIPs Hepatic encephalopathy - resolved GERD Cholelithiasis hypomagnesemia - replace IV and monitor Pedro BARRETT MD Nov 21, 2018 17:08
[2018-11-21 19:25] VITALS: BP 149/74
[2018-11-21] MEDS: traZODone 100 MG TABLET. PO SCH (20:36)
[2018-11-21 23:30] VITALS: BP 138/68
[2018-11-22 03:30] VITALS: BP 143/66
[2018-11-22] MEDS: traMADol 50 MG TABLET PO PRN ×2 (04:16→10:28)
[2018-11-22 07:00] VITALS: BP 152/78
[2018-11-22] MEDS: FUROSEMIDE 40 MG/4 ML VIAL. IVP SCH ×2 (07:06→13:55)
[2018-11-22] MEDS: PANTOPRAZOLE 40 MG TABLET.DR. PO SCH (08:55)
[2018-11-22] MEDS: FOLIC ACID 1 MG TABLET. PO SCH (08:55)
[2018-11-22] MEDS: LACTULOSE 20 GM/30 ML SOLUTION. PO SCH (08:55)
[2018-11-22] MEDS: amLODIPine BESYLATE 10 MG TABLET PO SCH (08:55)
[2018-11-22] MEDS: SPIRONOLACTONE 25 MG TABLET PO SCH (08:56)
[2018-11-22] MEDS: GABAPENTIN 300 MG CAPSULE. PO SCH ×2 (08:56→13:55)
[2018-11-22] MEDS: POTASSIUM CHLORIDE 20 MEQ TABLET.ER. PO SCH (08:56)
[2018-11-22] MEDS: rifAXIMin 550 MG TABLET PO SCH (08:56)
[2018-11-22] MEDS: FERROUS SULFATE 325 MG TABLET. PO SCH (08:56)
[2018-11-22] MEDS: INSULIN LISPRO 300 UNITS/3 ML VIAL. SQ SCH ×2 (08:59→12:11)
--- NOTE | 2018-11-22 10:27 | PDOC ---
SUBJECTIVE ROS Stable per RN OBJECTIVE Vital Signs Vital Signs Date Time Temp Pulse Resp B/P (MAP) Pulse Ox O2 Delivery O2 Flow Rate FiO2 11/22/18 08:59 80 152/78 11/22/18 08:00 Room Air 11/22/18 07:00 97.8 18 93 97.8 I & 0 Intake and Output 11/22/18 06:59 Intake Total 4300 ml Output Total 3475 ml Balance 825 ml Intake Oral 4300 ml Output Urine Total 3475 ml PHYSICAL EXAM Physical Exam GEN.: No apparent distress. HEENT: OM moist NECK: Supple. LUNGS: Clear to auscultation. HEART: RRR, S1, S2 present. ABDOMEN: Soft, nontender. ascites present. EXTREMITIES: 2-3+ edema of lower extremities NEUROLOGIC: Grossly normal SKIN: No rash DIAGNOSIS/ASSESSMENT Assessment & Plan TEJAS - Cr stable at 1.7 , No labs today Holding Lisinopril , Torsemide dced as he is on IV Lasix HypoK- Normal K on PO KCL Cirrhosis - Hx of PSE, TIPS and variceal bleeding Per GI Anemia -per primary Recd IV Fe x 1 Acute CHF -Diastolic On IV Lasix , Aldactone - continue Was getting Torsemide along with lasix, dced on 11/20 Can be switched to PO Torsemide when ready for discharge Malignant HTN HypoMg- Replace as indicated Follow up Non urgent appt(Routine) with us as Op after Lukas, LISA environmental lead COMMENT/RELEVANT DATA Meds Current Medications Medications (Trade) Dose Ordered Sig/Kodak Start Time Stop Time Status Last Admin Dose Admin Albumin Human 100 ml @ 100 mls/hr 1X ONCE 11/19/18 09:00 11/19/18 09:59 DC 11/19/18 09:50 100 MLS/HR Amlodipine Besylate (Norvasc) 10 mg DAILY 11/17/18 09:00 11/22/18 08:59 10 MG Bisacodyl (Dulcolax Tab) 5 mg PRN DAILY PRN 11/20/18 10:45 Bumetanide (Bumex) 2.5 mg 1X ONCE 11/17/18 17:00 11/17/18 17:08 DC 11/17/18 17:45 2.5 MG Dextrose 250 ml PRN Q15MIN PRN 11/21/18 12:45 Dextrose (Dextrose 50%-Water Syringe) 12.5 gm PRN Q15MIN PRN 11/21/18 12:45 Ferrous Sulfate (Feosol) 325 mg DAILY 11/17/18 09:00 11/22/18 08:59 325 MG Folic Acid (Folic Acid) 1 mg DAILY 11/17/18 09:00 11/22/18 08:59 1 MG Furosemide (Lasix) 40 mg Q8HRS 11/18/18 14:00 11/22/18 07:06 40 MG Gabapentin (Neurontin) 300 mg TID 11/16/18 21:00 11/22/18 08:59 300 MG Insulin Human Lispro (HumaLOG) 0-7 UNITS TIDWMEALS 11/21/18 17:00 11/22/18 08:59 3 UNITS Iron Sucrose 200 mg/Sodium Chloride 110 ml @ 55 mls/hr 1X ONCE 11/17/18 14:00 11/17/18 15:59 DC 11/17/18 14:41 55 MLS/HR Lactulose (Lactulose) 20 gm BID 11/20/18 10:45 11/22/18 08:59 20 GM Lisinopril (Prinivil) 5 mg DAILY 11/17/18 09:00 11/18/18 12:48 DC 11/18/18 09:10 5 MG Magnesium Sulfate 100 ml @ 25 mls/hr 1X ONCE 11/22/18 10:30 11/22/18 14:29 Magnesium Sulfate/ Dextrose 100 ml @ 100 mls/hr 1X ONCE 11/19/18 09:30 11/19/18 10:29 DC 11/19/18 09:50 100 MLS/HR Metolazone (Zaroxolyn) 5 mg DAILY 11/18/18 13:30 11/20/18 08:19 DC 11/19/18 08:42 5 MG Morphine Sulfate (Morphine Sulfate) 2 mg PRN Q4HRS PRN 11/20/18 13:45 Non-Formulary Medication (Pantoprazole Sodium (Protonix)) 40 mg DAILY 11/17/18 09:00 UNV Ondansetron HCl (Zofran) 4 mg PRN Q8HRS PRN 11/16/18 11:00 11/17/18 10:59 DC Pantoprazole Sodium (Protonix) 40 mg DAILYAC 11/17/18 07:30 11/22/18 08:59 40 MG Potassium Chloride (Klor-Con) 20 meq BID 11/18/18 09:00 11/22/18 08:59 20 MEQ Rifaximin (Xifaxan) 550 mg Q12HR 11/17/18 09:00 11/22/18 08:59 550 MG Sodium Chloride 1,000 ml @ 75 mls/hr [id number] 11/16/18 10:54 11/17/18 10:53 DC 11/17/18 04:03 75 MLS/HR Spironolactone (Aldactone) 50 mg BID 11/19/18 09:00 11/22/18 08:59 50 MG Torsemide (Demadex) 20 mg DAILY 11/17/18 09:00 11/20/18 10:25 DC 11/20/18 09:34 20 MG Tramadol HCl (Ultram) 50 mg PRN Q6HRS PRN 11/20/18 13:45 11/22/18 04:16 50 MG Trazodone HCl (Desyrel) 100 mg QHS 11/16/18 21:00 11/21/18 20:37 100 MG Lab Laboratory Tests Test 11/21/18 12:12 11/21/18 16:41 11/21/18 20:47 11/22/18 04:20 Glucose (Fingerstick) 204 mg/dL (70-99) 179 mg/dL (70-99) 185 mg/dL (70-99) Magnesium Level 1.5 mg/dL (1.8-2.4) Test 11/22/18 07:15 Glucose (Fingerstick) 174 mg/dL (70-99) Results All relevant outside records, renal labs, imaging studies, telemetry/EKG's were reviewed. MERLY BERGER MD Nov 22, 2018 10:27
[2018-11-22] MEDS ORDERED: MAGNESIUM SULFATE 4GM 100 ML IV ONE (10:30)
--- NOTE | 2018-11-22 10:40 | NUR ---
SW following pt. Per RN, pt has been independent with ADL's. No SW needs at this time. Pt is a possible dc today. Addendum: 11/22/18 at 1544 by LEX LUND SW had spoken regarding Pt with Nurse navigator from [facility]. They do not have Lymphedema OT on Staff. OT notes reviewed and recommends home independent- with f/u with Clinic PRN. Pt discharging with self care today. D/w RN.
[2018-11-22 11:00] VITALS: BP 143/60
--- NOTE | 2018-11-22 11:48 | PDOC ---
G I PROGRESS NOTE Subjective No GI complaints. Objective Others' notes reviewed. Physical Exam Lungs clear. RRR Abdomen with ascites. Much less LE edema. Review of Relevant I have reviewed the following items lexus (where applicable) has been applied. Labs Laboratory Tests Test 11/20/18 11:53 11/20/18 16:39 11/20/18 20:34 11/21/18 03:55 Glucose (Fingerstick) 238 mg/dL (70-99) 210 mg/dL (70-99) 225 mg/dL (70-99) Sodium Level 137 mmol/L (136-145) Potassium Level 4.2 mmol/L (3.5-5.1) Chloride Level 101 mmol/L (98-107) Carbon Dioxide Level 29 mmol/L (21-32) Anion Gap 7 (6-14) Blood Urea Nitrogen 19 mg/dL (8-26) Creatinine 1.7 mg/dL (0.7-1.3) Estimated GFR (Cockcroft-Gault) 42.5 Glucose Level 137 mg/dL (70-99) Calcium Level 8.9 mg/dL (8.5-10.1) Magnesium Level 1.6 mg/dL (1.8-2.4) Test 11/21/18 07:31 11/21/18 12:12 11/21/18 16:41 11/21/18 20:47 Glucose (Fingerstick) 186 mg/dL (70-99) 204 mg/dL (70-99) 179 mg/dL (70-99) 185 mg/dL (70-99) Test 11/22/18 04:20 11/22/18 07:15 11/22/18 11:16 Magnesium Level 1.5 mg/dL (1.8-2.4) Glucose (Fingerstick) 174 mg/dL (70-99) 182 mg/dL (70-99) Laboratory Tests Test 11/21/18 12:12 11/21/18 16:41 11/21/18 20:47 11/22/18 04:20 Glucose (Fingerstick) 204 mg/dL (70-99) 179 mg/dL (70-99) 185 mg/dL (70-99) Magnesium Level 1.5 mg/dL (1.8-2.4) Test 11/22/18 07:15 11/22/18 11:16 Glucose (Fingerstick) 174 mg/dL (70-99) 182 mg/dL (70-99) Vitals/I & O Vital Sign - Last 24 Hours 11/21/18 11/21/18 11/21/18 11/21/18 15:25 19:25 20:37 22:57 Temp 98.4 97.9 98.4 97.9 Pulse 86 89 Resp 18 18 18 B/P (MAP) 142/67 (92) 149/74 (99) Pulse Ox 96 93 93 93 O2 Delivery Room Air Room Air Room Air Room Air 11/21/18 11/22/18 11/22/18 11/22/18 23:30 03:30 04:16 05:54 Temp 98.4 97.8 98.4 97.8 Pulse 91 83 Resp 18 18 18 B/P (MAP) 138/68 (91) 143/66 (91) Pulse Ox 92 96 92 O2 Delivery Room Air Room Air Room Air 11/22/18 11/22/18 11/22/18 07:00 08:00 08:59 Temp 97.8 97.8 Pulse 80 80 Resp 18 B/P (MAP) 152/78 (102) 152/78 Pulse Ox 93 O2 Delivery Room Air Room Air Intake and Output 11/21/18 11/21/18 11/22/18 15:00 23:00 07:00 Intake Total 2600 ml 700 ml 1000 ml Output Total 225 ml 1025 ml 2225 ml Balance 2375 ml -325 ml -1225 ml Problem List Problems Medical Problems: (1) TEJAS (acute kidney injury) Status: Acute (2) Anemia Status: Acute (3) CHF exacerbation Status: Acute (4) Hyperammonemia Status: Acute (5) Hypomagnesemia Status: Acute Assessment Cirrhosis Varices post TIPS MARIELA--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 Ascites/anasarca. Plan of Care: Continue current Tx, Mgmt JENNIFER VÁZQUEZ MD Nov 22, 2018 11:48
[2018-11-22] MEDS ORDERED: RIFA550T4 PO (14:24)
[2018-11-22] MEDS ORDERED: TRAM50TA PO (14:24)
[2018-11-22] MEDS ORDERED: POTA20TA4 PO (14:24)
[2018-11-22] MEDS ORDERED: SPIR25TA PO (14:24)
--- NOTE | 2018-11-22 14:29 | PDOC3 ---
Discharge Summary [facility] Date of Admission: Nov 16, 2018 Discharge Date: Nov 22, 2018 Admitting Diagnosis CHF, TEJAS Final Diagnosis Problems Medical Problems: (1) TEJAS (acute kidney injury) Status: Acute (2) Anemia Status: Acute (3) CHF exacerbation Status: Acute (4) Hyperammonemia Status: Acute (5) Hypomagnesemia Status: Acute CONSULTS renal, GI Procedures none Brief Hospital Course Mr. Caceres is a 52 old who presented with: Acute on chronic diastolic heart failure and acute renal injury Anasarca - improving with IV diuresis and IV albumin Hepatorenal syndrome - TIPS functioning per sono Acute on chronic renal failure - stablized creatinine at 1.7 Liver failure ascites - doubt paracentesis would be helpful Pulm HTN Pancytopenia ETOH cirrhosis with hx TIPs Hepatic encephalopathy - resolved GERD Cholelithiasis hypomagnesemia - replaced IV Patient History: Family history: Diabetes mellitus (situation) G8 BROTHER Disposition home CONDITION AT DISCHARGE: Improved, Stable Diet renal Scheduled Amlodipine Besylate (Amlodipine Besylate), 10 MG PO DAILY, (Reported) Esomeprazole Magnesium (Nexium Capsule), 1 CAP PO DAILY, (Reported) Ferrous Sulfate (Ferrous Sulfate), 1 TAB PO DAILY, (Reported) Folic Acid (Folic Acid), 1 MG PO DAILY, (Reported) Gabapentin (Gabapentin), 300 MG PO TID, (Reported) Lactulose (Lactulose), 20 GM PO DAILY Pantoprazole Sodium (Protonix), 40 MG PO DAILY, (Reported) Potassium Chloride (Klor-Con M20), 20 MEQ PO BID Rifaximin (Xifaxan), 550 MG PO Q12HR Spironolactone (Aldactone), 50 MG PO BID Torsemide (Torsemide), 1 TAB PO DAILY, (Reported) Trazodone Hcl (Trazodone Hcl), 1 TAB PO QHS, (Reported) Scheduled PRN Tramadol Hcl (Tramadol Hcl), 50 MG PO QHS PRN for MILD TO MODERATE PAIN Discontinued Medications Potassium Chloride (Potassium Chloride), 10 MEQ PO DAILY, (Reported) Pedro BARRETT MD Nov 22, 2018 14:29
[2018-11-22 15:19] VITALS: BP 144/61
--- NOTE | 2018-11-22 15:46 | NUR ---
Pt discharged to home with self care. Pt left via wheelchair with family member. Discussed diet, activity, follow up, and medications. All questions answered. All belongings with patient at the time of discharge. Prescriptions for tramadol, potassium, rifaximin, and spironolactone given to patient.
== END 2018-11-22 15:35 | disposition home or self-care (01) | DRG 291 ==
LOC: ER 09:24 → ED HOLD 10:49 → 6 SOUTH 13:32
PROVIDERS: ADMIT Family Medicine; ATTEND Family Medicine
DX: I13.0 Hypertensive heart and chronic kidney disease with heart failure and stage 1 through stage 4 chronic kidney disease, or unspecified chronic kidney disease (principal); K76.7 Hepatorenal syndrome; I50.33 Acute on chronic diastolic (congestive) heart failure; N17.9 Acute kidney failure, unspecified; D61.818 Other pancytopenia; K72.90 Hepatic failure, unspecified without coma; D50.9 Iron deficiency anemia, unspecified; E11.22 Type 2 diabetes mellitus with diabetic chronic kidney disease; E78.00 Pure hypercholesterolemia, unspecified; E78.5 Hyperlipidemia, unspecified; E83.42 Hypomagnesemia; I25.10 Atherosclerotic heart disease of native coronary artery without angina pectoris; I27.20 Pulmonary hypertension, unspecified; I89.0 Lymphedema, not elsewhere classified; J45.909 Unspecified asthma, uncomplicated; K21.9 Gastro-esophageal reflux disease without esophagitis; K59.00 Constipation, unspecified; K70.31 Alcoholic cirrhosis of liver with ascites; K80.20 Calculus of gallbladder without cholecystitis without obstruction; N18.3 Chronic kidney disease, stage 3 (moderate); Z82.3 Family history of stroke; Z83.3 Family history of diabetes mellitus; Z86.73 Personal history of transient ischemic attack (TIA), and cerebral infarction without residual deficits; Z87.11 Personal history of peptic ulcer disease; Z87.891 Personal history of nicotine dependence; Z95.1 Presence of aortocoronary bypass graft; Z96.659 Presence of unspecified artificial knee joint; M19.90 Unspecified osteoarthritis, unspecified site; Z98.49 Cataract extraction status, unspecified eye
CPT/HCPCS: 36415; 71046; 80048; 80053; 81001; 82140; 82274; 82962; 83540; 83550; 83605; 83735; 83880; 84100; 84484; 85025; 85027; 86850; 86900; 86901; 86922; 93005; 93306; 93970; 93976; 96374; J1756; J1815; J1940; J2270; J2405; J3475; J3490; J7030; P9016; P9046; 97110; 97140; 97535; 99285-25; G0378

== ENCOUNTER 2018-12-31 08:26 | Emergency (ER) | payer MEDICARE ==
[~2018-12-31] VITALS: Ht 170.2 cm; Wt 78.6 kg
[~2018-12-31 08:26] MED LIST changes: -MAGN400T3 PO; +MAGN400T5 PO; +POTA20TA4 PO
--- NOTE | 2018-12-31 08:41 | RAD ---
EXAM: CT HEAD WITHOUT CONTRAST. HISTORY: Code stroke. Altered mental status, cerebrovascular accident. TECHNIQUE: Computed tomography of the head was performed without intravenous contrast. *One or more of the following individualized dose reduction techniques were utilized for this examination: 1. Automated exposure control. 2. Adjustment of the mA and/or kV according to patient size. 3. Use of iterative reconstruction technique. COMPARISON: 11/09/2018. FINDINGS: There is no intracranial hemorrhage. Hypoattenuation within the periventricular white matter indicates mild to moderate chronic microangiopathic change. Prominence of the lateral ventricles and hemispheric sulci indicates moderate atrophy. The visualized paranasal sinuses appear clear. The orbits are unremarkable. There is a small amount of fluid in the left mastoid air cells. The calvarium reveals no suspicious lesions. IMPRESSION: 1. No intracranial hemorrhage. 2. Moderate atrophy and chronic microangiopathic white matter change, advanced for patient age. These findings were called to Dr. Antonio by Chin Crowder on 12/31/2018 at 8:33 AM. FOR INTERNAL CODING PURPOSES RESULT CODE: (C) Electronically signed by: Lydia Crowder MD (12/31/2018 8:38 AM) [facility]
[2018-12-31 08:55] LABS: HEMOGLOBIN 8.1 g/dL (13.0-17.5); RED BLOOD COUNT 3.01 x10^6/uL (4.30-5.70); RED CELL DISTRIBUTION WIDTH 14.5 % (11.5-14.5); WHITE BLOOD COUNT 7.7 x10^3/uL (4.0-11.0)
--- NOTE | 2018-12-31 08:58 | PHYS DOC ---
Past Medical History Past Medical History: Anemia, Diabetes-Type II, GERD, High Cholesterol, Hypertension, Liver Disease, Stroke Additional Past Medical Histor: 7 Bld.transfusions, trouble sleeping, CIRRHOSIS Past Surgical History: Other Additional Past Surgical Histo: TIPS Alcohol Use: Heavy Drug Use: None Adult General Chief Complaint Chief Complaint: NEURO SYMPTOMS/DEFICITS HPI HPI Patient is a 53-year-old male who arrives via EMS after reportedly being found this morning face down by family. Patient was unresponsive. EMS reports that patient was found to be obtunded with fixed pupils. EMS reports that they had given 2 mg Narcan IV without any effect. Patient's last reported known time was between 12 and 1 AM last night. Upon arrival to ER, patient is unresponsive to both painful and verbal stimuli. Patient is noted however to move both left arm and left leg with a left sided gaze. There is no movement on right side of body. Additional history is unavailable due to patient condition.[] Review of Systems Review of Systems Constitutional: No reported fever[] Respiratory: No additional information not addressed in history of present illness[] Cardiovascular: No additional information not addressed in HPI [] GI: No reported vomiting[] Neurologic: Positive mental status changes [] Able to fully assess review of systems due to severity of patient condition. Current Medications Current Medications Current Medications Medications (Trade) Dose Ordered Sig/Kodak Start Time Stop Time Status Last Admin Dose Admin Etomidate (Amidate) 30 mg 1X ONCE 12/31/18 09:15 12/31/18 09:16 DC 12/31/18 09:24 30 MG Info (CONTRAST GIVEN -- Rx MONITORING) 1 each PRN DAILY PRN 12/31/18 09:30 01/02/19 09:29 Iohexol (Omnipaque 300 Mg/ml) 75 ml 1X ONCE 12/31/18 09:30 12/31/18 09:31 DC 12/31/18 09:39 75 ML Lorazepam (Ativan Inj) 2 mg STK-MED ONCE 12/31/18 10:20 12/31/18 10:20 DC Propofol 100 ml @ 0 mls/hr CONT PRN 12/31/18 09:00 12/31/18 09:12 2.4 MLS/HR Sodium Chloride 1,000 ml @ 75 mls/hr 1X ONCE 12/31/18 09:30 12/31/18 22:49 12/31/18 09:27 75 MLS/HR Vecuronium [place] (Norcuron Bolus) 20 mg 1X ONCE 12/31/18 09:15 12/31/18 09:16 DC 12/31/18 09:24 20 MG Allergies Allergies Allergies Coded Allergies Type Severity Reaction Last Updated Verified No Known Drug Allergies 04/06/18 No Physical Exam Physical Exam Constitutional: Well developed, well nourished, unresponsive. [] HENT: Normocephalic, dried blood noted within nares, bilateral external ears normal, oropharynx moist, no oral exudates, nose normal. [] Eyes: Pupils 2 mm and nonreactive, conjunctiva normal, no discharge. [] Neck: Supple, no JVD. [] Cardiovascular: Regular rate and rhythm[] Lungs & Thorax: Sonorous respirations are noted to auscultation [] Abdomen: Bowel sounds normal, soft, no tenderness, no masses, no pulsatile masses. [] Skin: Warm, dry, no erythema, no rash. [] Extremities: No cyanosis, no clubbing, ROM intact. [] Neurologic: Unresponsive to both verbal and painful stimuli. Patient noted to have a leftward gaze and moving both left upper and left lower extremities with complete neglect/non-movement of right upper and lower extremities. Unable to further assess neurological status due to patient's inability to follow commands. [] Current Patient Data Vital Signs Vital Signs Date Time Temp Pulse Resp B/P (MAP) Pulse Ox O2 Delivery O2 Flow Rate FiO2 12/31/18 09:20 185 16 100 12/31/18 09:17 Ventilator 12/31/18 08:30 95.9 169/85 (113) 95.9 Lab Values Laboratory Tests Test 12/31/18 08:33 12/31/18 08:42 12/31/18 08:47 12/31/18 09:25 White Blood Count 7.7 x10^3/uL (4.0-11.0) Red Blood Count 3.01 x10^6/uL (4.30-5.70) L Hemoglobin 8.1 g/dL (13.0-17.5) L Hematocrit 24.0 % (39.0-53.0) L Mean Corpuscular Volume 80 fL (79-100) Mean Corpuscular Hemoglobin 27 pg (25-35) Mean Corpuscular Hemoglobin Concent 34 g/dL (31-37) Red Cell Distribution Width 14.5 % (11.5-14.5) Platelet Count 65 x10^3/uL (140-400) L Prothrombin Time 16.7 SEC (11.7-14.0) H Prothrombin Time INR 1.4 (0.8-1.1) H Activated Partial Thromboplast Time 27 SEC (24-38) Sodium Level 138 mmol/L (136-145) Potassium Level 4.7 mmol/L (3.5-5.1) Chloride Level 106 mmol/L (98-107) Carbon Dioxide Level 18 mmol/L (21-32) L Anion Gap 14 (6-14) Blood Urea Nitrogen 44 mg/dL (8-26) H Creatinine 2.6 mg/dL (0.7-1.3) H Estimated GFR (Cockcroft-Gault) 25.9 Glucose Level 259 mg/dL (70-99) H Glucose (Fingerstick) 205 mg/dL (70-99) H Calcium Level 8.5 mg/dL (8.5-10.1) Total Bilirubin 1.4 mg/dL (0.2-1.0) H Direct Bilirubin 0.6 mg/dL (0.0-0.2) H Aspartate Amino Transferase (AST) 35 U/L (15-37) Alanine Aminotransferase (ALT) 30 U/L (16-63) Alkaline Phosphatase 146 U/L (46-116) H Troponin I Quantitative < 0.017 ng/mL (0.000-0.055) Total Protein 7.5 g/dL (6.4-8.2) Albumin 2.5 g/dL (3.4-5.0) L Ethyl Alcohol Level < 10 mg/dL (0-10) Ammonia 286 mcmol/L (11-34) H Urine Opiates Screen Neg (NEG) Urine Methadone Screen Neg (NEG) Urine Barbiturates Neg (NEG) Urine Phencyclidine Screen Neg (NEG) Urine Amphetamine/Methamphetamine Neg (NEG) Urine Benzodiazepines Screen Neg (NEG) Urine Cocaine Screen Neg (NEG) Urine Cannabinoids Screen Neg (NEG) Urine Ethyl Alcohol Neg (NEG) O2 Saturation 98 % (92-99) Arterial Blood pH 7.24 (7.35-7.45) L Arterial Blood pCO2 at Patient Temp 44 mmHg (35-46) Arterial Blood pO2 at Patient Temp 199 mmHg (75-108) H Arterial Blood HCO3 18 mmol/L (21-28) L Arterial Blood Base Excess -9 mmol/L (-3-3) L FiO2 100 Laboratory Tests 12/31/18 08:33 Laboratory Tests 12/31/18 08:33 EKG EKG [] Radiology/Procedures Radiology/Procedures [] Impressions: PROCEDURE: CHEST AP ONLY CHEST AP ONLY History: Post adjustment of and endotracheal tube. Comparison: December 31, 2018 Findings: Interval retraction of endotracheal tube with tip 1.5 cm above the jolie. Unchanged enteric tube. Layering bilateral pleural effusions. Right mid and bibasilar opacities, unchanged. Postop changes upper abdomen. Impression: 1. Interval retraction of endotracheal tube with tip 1.5 cm above the jolie. Consider further retraction. 2. Bilateral layering pleural effusions, unchanged. 3. Patchy right mid and bibasilar opacities, unchanged. Electronically signed by: Gerardo Lloyd DO (12/31/2018 9:29 AM) [facility] PROCEDURE: CT CODE STROKE HEAD WO EXAM: CT HEAD WITHOUT CONTRAST. HISTORY: Code stroke. Altered mental status, cerebrovascular accident. TECHNIQUE: Computed tomography of the head was performed without intravenous contrast. *One or more of the following individualized dose reduction techniques were utilized for this examination: 1. Automated exposure control. 2. Adjustment of the mA and/or kV according to patient size. 3. Use of iterative reconstruction technique. COMPARISON: 11/09/2018. FINDINGS: There is no intracranial hemorrhage. Hypoattenuation within the periventricular white matter indicates mild to moderate chronic microangiopathic change. Prominence of the lateral ventricles and hemispheric sulci indicates moderate atrophy. The visualized paranasal sinuses appear clear. The orbits are unremarkable. There is a small amount of fluid in the left mastoid air cells. The calvarium reveals no suspicious lesions. IMPRESSION: 1. No intracranial hemorrhage. 2. Moderate atrophy and chronic microangiopathic white matter change, advanced for patient age. These findings were called to Dr. Antonio by Chin Crowder on 12/31/2018 at 8:33 AM. FOR INTERNAL CODING PURPOSES RESULT CODE: (C) PROCEDURE: CT ANGIOGRAPHY HEAD AND NECK EXAM: 1. CTA HEAD WITH AND WITHOUT CONTRAST. 2. CTA NECK WITH AND WITHOUT CONTRAST. HISTORY: Cerebrovascular accident, right weakness, altered mental status. TECHNIQUE: Computed tomographic angiography of the head and neck was performed before and after the intravenous administration of 75 mL Omnipaque 300. Contrast was administered based on medical necessity. Three-dimensional reconstructions were also performed. COMPARISON: Today's head CT. FINDINGS: Angiographic findings: The aortic arch has a typical branching pattern. There is no arch vessel stenosis. There are mild atherosclerotic calcifications at the carotid bulbs without significant stenosis. Both common carotid arteries are patent. Both internal carotid arteries are patent without stenosis. The external carotid systems are patent. Atherosclerotic calcifications of the right vertebral artery origin results in mild stenosis. Both vertebral arteries are patent more distally. The basilar artery is patent. Both posterior cerebral arteries are patent. The posterior communicating arteries are visualized. The cavernous internal carotid arteries demonstrate mild atherosclerotic calcification without clear stenosis. There are limitations from venous contamination. Occlusion or subtotal stenosis is suspected near the origin of the left inferior M2 segment. The superior segment remains patent. The right middle cerebral artery appears patent. The anterior cerebral arteries are patent. The anterior communicating artery is visualized. Nonangiographic findings: There is no intracranial hemorrhage. Hypoattenuation within the periventricular white matter indicates mild to moderate chronic small vessel ischemic white matter change. Prominence of the lateral ventricles and hemispheric sulci indicate moderate atrophy. The paranasal sinuses appear clear. The orbits are unremarkable. The temporal bones are unremarkable. Bone windows reveal no suspicious lesions. The lung apices demonstrate a moderate to large right pleural effusion with associated atelectasis. There is also atelectasis dependently on the left. A nasogastric tube and an endotracheal tube are in place. The heart appears moderately enlarged. Aortic valve calcifications are suspected. The parotid glands and submandibular glands are unremarkable. The thyroid gland demonstrates no suspicious lesions. There are no laryngeal or pharyngeal masses. There are no pathologically enlarged lymph nodes. IMPRESSION: 1. Occlusion or subtotal stenosis near the origin of the left inferior M2 segment. 2. Moderate to large right pleural effusion. 3. Cardiomegaly. These findings were called to Dr. Antonio by Chin Crowder on 12/31/2018 at 9:35 AM. PQRS Compliance Statement - Stenosis calculations for CT, MR and conventional angiography are based upon measurement of the distal ICA diameter in accordance with the NASCET methodology. Stenosis calculations for carotid ultrasound studies are derived from validated velocity criteria which are known to correlate with the NASCET methodology. *One or more of the following individualized dose reduction techniques were utilized for this examination: 1. Automated exposure control. 2. Adjustment of the mA and/or kV according to patient size. 3. Use of iterative reconstruction technique. Electronically signed by: Lydia Crowder MD (12/31/2018 9:58 AM) [facility] Course & Med Decision Making Course & Med Decision Making Pertinent Labs and Imaging studies reviewed. (See chart for details) Moved to room upon arrival was evaluated by ER medical staff after which workup was initiated to include blood work, chest x-ray and could stroke CT head. Initial CT demonstrated no acute process. Patient was subsequently sent down for CT angios of head neck. The CT angios did demonstrate near complete s tenosis/occlusion of the inferior M2 segment. Patient's case was discussed with Dr. Leos who is recommending transfer to . I did discuss patient's case with Dr. Eddy at and she will accept patient in transfer. Endotracheal Intubation by resident director and supervised by me: Pre assessment performed. See preceding note for details. Pre-oxygenation performed with 100% oxygen RSI: Performed w/o complication or hypoxic events. Medications as ordered. Blade: [place] scope ET Tube: 7.5 cm Depth: 24 cm at the lip Intubation confirmed by colorimetric CO2, equal breath sounds, quiet over the stomach. Chest X-ray 1V Interpreted by me: 1.5 cm above the jolie ET tube. Normal soft tissue, No pneumothorax. A total of 40 minutes of critical care time was spent on this patient exclusive of separately billable procedures and included direct [id number] time with this patient, ordering and reviewing of both laboratory and radiologic studies, discussion of patient's case with consultants, and finally on documentation of this patient's medical record. Dragon Disclaimer Dragon Disclaimer This electronic medical record was generated, in whole or in part, using a voice recognition dictation system. Departure Departure Impression: Primary Impression: CVA (cerebral vascular accident) Additional Impressions: Pleural effusion Respiratory acidosis Disposition: 02 TRANSFER [facility] Condition: GUARDED Referrals: Pedro BARRETT MD (PCP) Problem Qualifiers Primary Impression: CVA (cerebral vascular accident) CVA mechanism: unspecified Qualified Codes: I63.9 - Cerebral infarction, unspecified ALHAJI ANTONIO Jr. DO Dec 31, 2018 08:58
[2018-12-31] MEDS ORDERED: PROPOFOL 100 ML IV PRN (09:00)
[2018-12-31 09:04] LABS: BARBITURATES NEG (NEG); BENZODIAZEPINES NEG (NEG); CANNABINOIDS NEG (NEG); COCAINE NEG (NEG); METHADONE NEG (NEG); OPIATES NEG (NEG); PHENCYCLIDINE NEG (NEG)
[2018-12-31 09:04] LABS: CALCIUM 8.5 mg/dL (8.5-10.1); CREATININE 2.6 mg/dL (0.7-1.3); GFR 25.9; POTASSIUM 4.7 mmol/L (3.5-5.1)
[2018-12-31 09:05] LABS: PROTHROMBIN TIME PATIENT 16.7 SEC (11.7-14.0)
[2018-12-31 09:06] LABS: AMPHETAMINE/METHAMPHETAMINE NEG (NEG)
[2018-12-31 09:10] LABS: ALBUMIN 2.5 g/dL (3.4-5.0); DIRECT BILIRUBIN 0.6 mg/dL (0.0-0.2); TOTAL BILIRUBIN 1.4 mg/dL (0.2-1.0); TOTAL PROTEIN 7.5 g/dL (6.4-8.2)
[2018-12-31] MEDS ORDERED: ETOMIDATE 20 MG/10 ML VIAL. IV ONE (09:15)
[2018-12-31] MEDS ORDERED: VECURONIUM BOLUS 10 MG VIAL. IV ONE (09:15)
--- NOTE | 2018-12-31 09:18 | RAD ---
CHEST AP ONLY History: Post intubation Comparison: November 16, 2018 Findings: Right mainstem intubation. Small right pleural effusion. Patchy right mid and bibasilar opacities. Enteric tube with tip below the diaphragm beyond the image. Unchanged heart size. No pneumothorax. Impression: 1. Right mainstem intubation. Recommend retraction. 2. Layering right pleural effusion. 3. Patchy right mid and bibasilar opacities, may represent atelectasis or consolidations. FOR INTERNAL CODING PURPOSES Critical result: Findings discussed with ALHAJI PARKER at 12/31/2018 9:13 AM. RESULT CODE: (C) Electronically signed by: Gerardo Lloyd DO (12/31/2018 9:16 AM) [facility]
[2018-12-31] MEDS ORDERED: IV NORMAL SALINE 1000ML BAG 1,000 ML IV ONE (09:30)
[2018-12-31] MEDS ORDERED: CONTRAST GIVEN. MC PRN (09:30)
[2018-12-31] MEDS ORDERED: IOHEXOL 300 MG/ML 100ML VIAL. IV ONE (09:30)
[2018-12-31 09:31] LABS: BASE EXCESS ABG -9 mmol/L (-3-3); HCO3 ABG 18 mmol/L (21-28); PCO2 ABG 44 mmHg (35-46); PO2 ABG 199 mmHg (75-108); SAT O2 ABG 98 % (92-99)
--- NOTE | 2018-12-31 09:32 | RAD ---
CHEST AP ONLY History: Post adjustment of and endotracheal tube. Comparison: December 31, 2018 Findings: Interval retraction of endotracheal tube with tip 1.5 cm above the jolie. Unchanged enteric tube. Layering bilateral pleural effusions. Right mid and bibasilar opacities, unchanged. Postop changes upper abdomen. Impression: 1. Interval retraction of endotracheal tube with tip 1.5 cm above the jolie. Consider further retraction. 2. Bilateral layering pleural effusions, unchanged. 3. Patchy right mid and bibasilar opacities, unchanged. Electronically signed by: Gerardo Lloyd DO (12/31/2018 9:29 AM) [facility]
[2018-12-31 09:37] LABS: FIO2 ABG 100
--- NOTE | 2018-12-31 10:01 | RAD ---
EXAM: 1. CTA HEAD WITH AND WITHOUT CONTRAST. 2. CTA NECK WITH AND WITHOUT CONTRAST. HISTORY: Cerebrovascular accident, right weakness, altered mental status. TECHNIQUE: Computed tomographic angiography of the head and neck was performed before and after the intravenous administration of 75 mL Omnipaque 300. Contrast was administered based on medical necessity. Three-dimensional reconstructions were also performed. COMPARISON: Today's head CT. FINDINGS: Angiographic findings: The aortic arch has a typical branching pattern. There is no arch vessel stenosis. There are mild atherosclerotic calcifications at the carotid bulbs without significant stenosis. Both common carotid arteries are patent. Both internal carotid arteries are patent without stenosis. The external carotid systems are patent. Atherosclerotic calcifications of the right vertebral artery origin results in mild stenosis. Both vertebral arteries are patent more distally. The basilar artery is patent. Both posterior cerebral arteries are patent. The posterior communicating arteries are visualized. The cavernous internal carotid arteries demonstrate mild atherosclerotic calcification without clear stenosis. There are limitations from venous contamination. Occlusion or subtotal stenosis is suspected near the origin of the left inferior M2 segment. The superior segment remains patent. The right middle cerebral artery appears patent. The anterior cerebral arteries are patent. The anterior communicating artery is visualized. Nonangiographic findings: There is no intracranial hemorrhage. Hypoattenuation within the periventricular white matter indicates mild to moderate chronic small vessel ischemic white matter change. Prominence of the lateral ventricles and hemispheric sulci indicate moderate atrophy. The paranasal sinuses appear clear. The orbits are unremarkable. The temporal bones are unremarkable. Bone windows reveal no suspicious lesions. The lung apices demonstrate a moderate to large right pleural effusion with associated atelectasis. There is also atelectasis dependently on the left. A nasogastric tube and an endotracheal tube are in place. The heart appears moderately enlarged. Aortic valve calcifications are suspected. The parotid glands and submandibular glands are unremarkable. The thyroid gland demonstrates no suspicious lesions. There are no laryngeal or pharyngeal masses. There are no pathologically enlarged lymph nodes. IMPRESSION: 1. Occlusion or subtotal stenosis near the origin of the left inferior M2 segment. 2. Moderate to large right pleural effusion. 3. Cardiomegaly. These findings were called to Dr. Antonio by Chin Crowder on 12/31/2018 at 9:35 AM. PQRS Compliance Statement - Stenosis calculations for CT, MR and conventional angiography are based upon measurement of the distal ICA diameter in accordance with the NASCET methodology. Stenosis calculations for carotid ultrasound studies are derived from validated velocity criteria which are known to correlate with the NASCET methodology. *One or more of the following individualized dose reduction techniques were utilized for this examination: 1. Automated exposure control. 2. Adjustment of the mA and/or kV according to patient size. 3. Use of iterative reconstruction technique. Electronically signed by: Lydia Crowder MD (12/31/2018 9:58 AM) [facility]
[2018-12-31 10:35] VITALS: BP 185/87
--- NOTE | 2018-12-31 13:56 | EKG ---
[facility] [address] [place] [address] Test Date: 2018-12-31 Test Time: 08:32:24 Pat Name: DARIO RYAN Department: Room: Gender: M [employer]: : 1965 Requested By: ALHAJI PARKER Order Number: [id number] Reading MD: Measurements Intervals [place] Rate: 115 P: -24 GA: 138 QRS: -9 QRSD: 96 T: 56 QT: 350 QTc: 486 Interpretive Statements SINUS TACHYCARDIA LEFTWARD AXIS OTHERWISE NORMAL ECG RI6.01 No previous ECG available for comparison
== END 2018-12-31 10:51 | disposition short-term general hospital (02) ==
LOC: ER 08:26
DX: I63.9 Cerebral infarction, unspecified (principal); J90 Pleural effusion, not elsewhere classified; E87.2 Acidosis; E11.9 Type 2 diabetes mellitus without complications; R41.82 Altered mental status, unspecified; I10 Essential (primary) hypertension; E78.00 Pure hypercholesterolemia, unspecified; F10.20 Alcohol dependence, uncomplicated; Y90.0 Blood alcohol level of less than 20 mg/100 ml; Z86.73 Personal history of transient ischemic attack (TIA), and cerebral infarction without residual deficits
CPT/HCPCS: 31500; 36415; 36600; 70450; 70496; 70498; 71045; 80048; 80076; 80307; 82140; 82805; 82962; 84484; 85027; 85610; 85730; 93005; 96360; 99291; G0480; J2704; J7030; Q9967; 94002